=== PATIENT | male | born 1940 | race Caucasian/White ===

== ENCOUNTER 2022-04-13 13:03 | Inpatient (IN) | payer MEDICARE ==
[~2022-04-13] VITALS: Ht 177.8 cm; Wt 73.1 kg
[2022-04-13] MEDS: DOCUSATE SODIUM 100 MG (COLACE) CAP PO SCH ×2 (09:00→22:09)
[2022-04-13] MEDS: polyethylene glycoL POWDER 17 GM (MIRALAX) PACK PO SCH ×2 (09:00→22:09)
[2022-04-13] MEDS: SENNA W/DOCUSATE (SENOKOT S) TABLET PO SCH ×2 (09:00→22:09)
[~2022-04-13 13:03] MED LIST: ACETAMINOPHEN 325 MG TABLET PO PRN; AMIO400T5 PO; APIX5TAB2 PO; ASP81CT PO; ATEN25TA PO; BISACODYL 10 MG SUPP (DULCOLAX) PR PRN; CALCIUM CARBONATE 500 MG (TUMS) TAB.CHEW PO PRN; CYAN10007 PO; DOCUSATE SODIUM 100 MG (COLACE) CAP PO PRN; ENLP5T PO; FLEET ENEMA ADULT 1 EA BTL PR PRN; HYDR1TAB66 PO; LACTULOSE SYRUP 10GM/15ML (ENULOSE) 30ML UDC PO PRN; LOPERAMIDE 2 MG (IMODIUM) TABLET PO PRN; MELO-195 PO; OMEG-9 PO; ONDANSETRON 4 MG (ZOFRAN) ORAL DISSOLVE TAB PO PRN; ROSU10TA12 PO; TICA90TA PO; WRF5T PO; diphenhydrAMINE 25 MG TAB (BENADRYL) PO PRN; guaiFENesin/CODEINE (ROBITUSSIN AC) 10ML UDC PO PRN
[2022-04-13 13:15] VITALS: BP 122/69
--- NOTE | 2022-04-13 14:26 | Physical Therapy Evaluation ---
PT Evaluation-General Medical Diagnosis Admission Date Apr 13, 2022 at 13:03 Medical Diagnosis: CVA Onset Date: Apr 08, 2022 Therapy Diagnosis Therapy Diagnosis: Gait deficit, strength deficit Height/Weight Weight (Pounds): 183 Weight (Ounces): 0.0 Precautions Precautions/Isolations: Fall Prevention, Standard Precautions, Pressure Ulcer Weight Bear Status Right Lower Extremity: Right Full Weight Bearing Left Lower Extremity: Left Full Weight Bearing Referral Physician: Dr. Dunlap Reason for Referral: Evaluation/Treatment Medical History Reviewed History: Yes Social History Home: Single Level Current Living Status: Caregiver Entry Into Home: Level Entry PT Steps Into Home: 0 PT Steps Inside Home: 0 Prior Prior Level of Function SCALE: Activities may be completed with or without assistive devices. 6-Dmfsewmbqd-exqhhab completes the activity by him/herself with no assistance from a helper. 5-Set-up or Clean-up Assistance-helper sets up or cleans up; patient completes activity. [place] assists only prior to or following the activity. 4-Supervision or Touching Assistance-helper provides verbal cues and/or touching/steadying and/or contact guard assistance as patient completes activity. Assistance may be provided throughout the activity or intermittently. 3-Partial/Moderate Assistance-helper does LESS THAN HALF the effort. [place] lifts, holds or supports trunk or limbs, but provides less than half the effort. 2-Substantial/Maximal Assistance-helper does MORE THAN HALF the effort. [place] lifts or holds trunk or limbs and provides more than half the effort. 7-Rbcldksjc-dkldzd does ALL the effort. Patient does none of the effort to complete the activity. Or, the assistance of 2 or more helpers is required for the patient to complete the activity. If activity was not attempted, code reason: 7-Patient Refused. 9-Not Applicable-not attempted and the patient did not perform the activity before the current illness, exacerbation or injury. 10-Not Attempted due to Environmental Limitations-(lack of equipment, weather restraints, etc.). 88-Not Attempted due to Medical Conditions or Safety Concerns. Bed Mobility: 6 Transfers (B,C,W/C): 6 Gait: 6 Stairs: 6 Indoor Mobility (Ambulation): Independent Prior Devices Use: None PT Evaluation-Current Subjective Patient presents to the ARU being pushed in transport chair by caregiver. Patient reports 0/10 pain currently and is agreeable to treatment. Objective Patient Orientation: Person Patient reports "I know where we are, I just can't tell you." With clues and prompting he was able to tell us that he is currently in [place]. He said the date was SundayApril 11, (date being 04-13-22) ROM/Strength ROM Lower Extremities WFLs bilaterally all planes Strength Lower Extremities Hip flexion, adduction and abduction 3+/5 bilaterally; knee flexion and extension 4+/5 Sensory Vision: Functional Hearing: Functional Sensation Right Lower Extremit: Intact Sensation Left Lower Extremity: Intact Transfers Roll Left & Right (QC): 4 Sit to Lying (QC): 4 Lying to Sitting/Side of Bed(Q: 4 Sit to Stand (QC): 3 Chair/Eyt-ic-Axbij Xfer(QC): 3 Toilet Transfer (QC): 3 Car Transfer (QC): 3 Gait Does the Patient Walk?: Yes Mode of Locomotion: Walk Anticipated Mode of Locomotion: Walk Walk 10 feet (QC): 4 Walk 50 ft with 2 Turns(QC): 3 Walk 150 ft (QC): 88 Walking 10ft/uneven surface-QC: 4 Distance: 120 Gait Assistive Device: FWW Wheelchair Training Does the Pt Use a Wheelchair?: Yes Distance: 80 Wheel 50 ft with 2 turns (QC): 3 Wheel 150 ft (QC): 8 Type of Wheelchair: Manual Stairs #of Steps: 12 1 Step (curb) (QC): 4 4 Steps (QC): 3 12 Steps (QC): 2 Balance Sitting Static: Fair Sitting Dynamic: Fair Standing Static: Fair Standing Dynamic: Poor Picking up an Object (QC): 4 Assessment/Needs Patient demonstrates SBA for all bed mobility and min A for transfers. Patient ambulates 120 feet with FWW, with CGA and verbal cues for posture, safety, progression, balance and distance to FWW. Patient performs with min A as he attempt to stand perpendicular to the car and then step in first with his left LE. He required min A to avoid falling and verbal/ tactile cues for proper performance. Patient ascended/descended 4 steps x 3 reps for a total of 12. During the descending of the last 4 steps, patient stopped on the steps and appeared to lose focus of what he was doing. He required max A to finish the last 2-3 steps and then was given a long rest period. Patient performed w/c activities including education on proper use with UEs and LEs, visual field training activity to promote focusing on objects and using UEs to reach for them while navigating the w/c. Patient performed standing dynamic activities with weight shifting. During this activity patient became quiet and was assisted to the w/c. He responded to questions, but for a few seconds only said, "I'm really tired." BP was 122/69, HR 65 bpm and O2 was 96%. Patient given rest break and allowed time to recover. 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 Patient treatment performed as co-treatment with OT during the first 55 minute, excluding evaluation, to focus on functional ADLs, dressing, vision with OT with simultaneous standing dyamic and static balance, gait, transfers and w/c mobility. Rehab Potential: Fair Post Rehab Potential-Barriers: Vision, balance, endurance Equipment Needs Patient has FWW, may need w/c depending on level of improvement. PT Field Crop Technical Officer Goals Field Crop Technical Officer Goals PT Fdc Goals Time Frame: May 12, 2022 Roll Left & Right (QC): 6 Sit to Lying (QC): 6 Lying-Sitting on Side/Bed(QC): 6 Sit to Stand (QC): 6 Chair/Xkb-ss-Yaeeq Xfer(QC): 6 Toilet Transfer (QC): 6 Car Transfer (QC): 6 Does the Patient Walk: Yes Walk 10 feet (QC): 6 Walk 50ft with 2 Turns (QC): 6 Walk 150 ft (QC): 4 Walking 10ft on Uneven Surface: 6 1 Step (curb) (QC): 6 4 Steps (QC): 4 12 Steps (QC): 4 Picking up an Object (QC): 6 Does the Pt use WC or Scooter?: No Wheel 50 feet with 2 turns (QC: 88 Wheel 150 feet: 88 PT Plan Problem List Problem List: Activity Tolerance, Functional Strength, Safety, Balance, Gait, Transfer, Bed Mobility Treatment/Plan Treatment Plan: Continue Plan of Care Treatment Plan: Bed Mobility, Education, Functional Activity Jenifer, Functional Strength, Group Therapy, Gait, Safety, Therapeutic Exercise, Transfers Treatment Duration: May 12, 2022 Frequency: At least 5 of 7 days/Wk (IRF) Estimated Hrs Per Day: 1.5 hours per day Patient and/or Family Agrees t: Yes Safety Risks/Education Patient Education: Gait Training, Transfer Techniques, W/C Management Teaching Recipient: Patient Teaching Methods: Demonstration, Discussion Response to Teaching: Reinforcement Needed Time/GCodes Time In: 1305 Time Out: 1420 Total Billed Treatment Time: 65 Total Billed Treatment Visit, EVM (10), Gait(10), FA(45); PT eval [id number], Co-treat with OT 1325- 1420 GREER BARRERA PT Apr 13, 2022 14:26
--- NOTE | 2022-04-13 14:44 | Physical Therapy Daily Note ---
PT Daily Note-Current Subjective Pt. agrees to Rx but c/o being very fatigued "pooped" and is ready to get in bed and take a nap. Pt. [place] and says he has no steps. Pain Location: No Pain Reported Mental Status Patient Orientation: Person pt. did not know the name of this facility but did know the day of the week Transfers SCALE: Activities may be completed with or without assistive devices. 1-Uwkiinrnde-dtovjly completes the activity by him/herself with no assistance from a helper. 5-Set-up or Clean-up Assistance-helper sets up or cleans up; patient completes activity. [place] assists only prior to or following the activity. 4-Supervision or Touching Assistance-helper provides verbal cues and/or touching/steadying and/or contact guard assistance as patient completes activity. Assistance may be provided throughout the activity or intermittently. 3-Partial/Moderate Assistance-helper does LESS THAN HALF the effort. [place] lifts, holds or supports trunk or limbs, but provides less than half the effort. 2-Substantial/Maximal Assistance-helper does MORE THAN HALF the effort. [place] lifts or holds trunk or limbs and provides more than half the effort. 3-Joqxdxspk-pooaov does ALL the effort. Patient does none of the effort to complete the activity. Or, the assistance of 2 or more helpers is required for the patient to complete the activity. If activity was not attempted, code reason: 7-Patient Refused. 9-Not Applicable-not attempted and the patient did not perform the activity before the current illness, exacerbation or injury. 10-Not Attempted due to Environmental Limitations-(lack of equipment, weather restraints, etc.). 88-Not Attempted due to Medical Conditions or Safety Concerns. Roll Left & Right (QC): 6 Sit to Lying (QC): 4 Sit to Stand (QC): 3 Chair/Qid-mq-Aspsv Xfer(QC): 3 Weight Bearing Right Lower Extremity: Right Full Weight Bearing Left Lower Extremity: Left Full Weight Bearing Gait Training Gait Assistive Device: FWW pt. ambulated a ew feet from w/c to bed with min to mod assist, teetering and needed guidance to the bed etc. Treatments PT OT co Rx for TRFs, bed mob and orientation to ARU practices ad expectations as well as how to use call bryan , bed controls and how scheduling is practiced Assessment Current Status: Good Progress very fatigued, very limited participation , needed rest breaks PT Senior Care Goals Senior Care Goals PT Senior Care Goals Time Frame: May 12, 2022 Roll Left & Right (QC): 6 Sit to Lying (QC): 6 Lying-Sitting on Side/Bed(QC): 6 Sit to Stand (QC): 6 Chair/Sqc-ox-Ckjoj Xfer(QC): 6 Toilet Transfer (QC): 6 Car Transfer (QC): 6 Does the Patient Walk: Yes Walk 10 feet (QC): 6 Walk 50ft with 2 Turns (QC): 6 Walk 150 ft (QC): 4 Walking 10ft on Uneven Surface: 6 1 Step (curb) (QC): 6 4 Steps (QC): 4 12 Steps (QC): 4 Picking up an Object (QC): 6 Does the Pt use WC or Scooter?: No Wheel 50 feet with 2 turns (QC: 88 Wheel 150 feet: 88 PT Plan Treatment/Plan Treatment Plan: Continue Plan of Care Treatment Plan: Bed Mobility, Education, Functional Activity Jenifer, Functional Strength, Group Therapy, Gait, Safety, Therapeutic Exercise, Transfers Treatment Duration: May 12, 2022 Frequency: At least 5 of 7 days/Wk (IRF) Estimated Hrs Per Day: 1.5 hours per day Patient and/or Family Agrees t: Yes Safety Risks/Education Patient Education: Gait Training, Transfer Techniques, Correct Positioning, Safety Issues Teaching Recipient: Patient Response to Teaching: Reinforcement Needed Time/GCodes Time In: 1415 Time Out: 1450 Total Billed Treatment Time: 35 Total Billed Treatment 1,FA35m (PT OT co Rx 35m) CHENCHO MCMAHON BOOKMOBILE CLERK Apr 13, 2022 14:44
--- NOTE | 2022-04-13 14:46 | Occupational Therapy Eval ---
OT Evaluation-General/PLF Medical Diagnosis Admission Date Apr 13, 2022 at 13:03 Medical Diagnosis: CVA Onset Date: Apr 08, 2022 Therapy Diagnosis Therapy Diagnosis: Reduced ADL status, visual deficits Height/Weight Weight (Pounds): 183 Weight (Ounces): 0.0 Precautions Precautions/Isolations: Fall Prevention, Standard Precautions, Pressure Ulcer Comments Thickened liquids Referral Physician: Dr. Dunlap Referral Reason: Evaluation/Treatment Medical History Pertinent Medical History: Atrial Fib, CVA, Heart Failure, HTN Current History Pt presented to hospital with complaints of left sided weakness and facial droop. Found to have R sided CVA. Per family and pt he lives in a single story home with his caregiver. Prior to admission, pt was independent with ADLs with caregiver managing all IADLs. 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 He was not using any assistive device at baseline. Reviewed History: Yes Social History Home: Single Level Current Living Status: Caregiver Entry Into Home: Level Entry Steps Into Home: 0 Steps Inside Home: 0 ADL-Prior Level of Function SCALE: Activities may be completed with or without assistive devices. 8-Lsxkzeicmk-qrbpzvs completes the activity by him/herself with no assistance from a helper. 5-Set-up or Clean-up Assistance-helper sets up or cleans up; patient completes activity. [place] assists only prior to or following the activity. 4-Supervision or Touching Assistance-helper provides verbal cues and/or touching/steadying and/or contact guard assistance as patient completes activ ity. Assistance may be provided throughout the activity or intermittently. 3-Partial/Moderate Assistance-helper does LESS THAN HALF the effort. [place] lifts, holds or supports trunk or limbs, but provides less than half the effort. 2-Substantial/Maximal Assistance-helper does MORE THAN HALF the effort. [place] lifts or holds trunk or limbs and provides more than half the effort. 8-Biuupklvn-fxjqhp does ALL the effort. Patient does none of the effort to complete the activity. Or, the assistance of 2 or more helpers is required for the patient to complete the activity. If activity was not attempted, code reason: 7-Patient Refused. 9-Not Applicable-not attempted and the patient did not perform the activity before the current illness, exacerbation or injury. 10-Not Attempted due to Environmental Limitations-(lack of equipment, weather restraints, etc.). 88-Not Attempted due to Medical Conditions or Safety Concerns. 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 His caregiver and son was in the room as well. He denies all pain, but expresses fatigue and visual deficits. Co-treat with PT ([id number]) secondary to impaired mobility, weakness, visual deficits, high-fall risk, coordination and safety. Appearance Pt was left lying in bed with son and caregiver present. All needs were within reach and call light was explained and practiced before departure. Mental Status/Objective Patient Orientation: Person Current Glasses/Contacts: Yes Hearing Aids: No Dentures/Partials: Yes Hand Dominance: Right Upper Extremity ROM WFL Upper Extremity Coordination Poor dysdiadochokinesia, left coordination slightly worse than right Upper Extremity Sensation Intact Upper Extremity Strength Bilateral shoulders: 3+/5 Bilateral elbows: 4/5 Manager Of Loss Prevention Operations strength: fair ADL-Treatment Eating (QC): 4 (per clinical judgement) Oral Hygiene (QC): 3 (per clinical judgment) Shower/Bathe Self (QC): 88 Upper Body Dressing (QC): 7 Lower Body Dressing (QC): 3 (per clinical judgement) On/Off Footwear (QC): 3 Toileting Hygiene (QC): 7 Pt already dressed and reports he already showered for the day. While seated extra effort noted when attempted to don/doff socks. Pt often closing R eye and reports difficulty seeing. Visual scanning intact. It appears as if double vision. Eye patch provided with report of relief post application. Caregiver reports later in treatment that he wore an eye patch after experience with double vision following first CVA. Cues on figure 4 method for improved ease of reaching feet. Min assist to don shoes. Other Treatments Several activities performed with focus on improving scanning, endurance, coordination, balance, strength, attention, problem solving, and functional reaching. Due to fatigue, some activities were modified to w/c level. Mod cues for scanning to both right and left side. Pt only able to tolerate standing for ~3-4 minutes before needing to sit. Increased trembling noted with prolonged standing. Poor safety as fatigue worsened. Impaired coordination noted when reaching for items as pt often under/over shot. Min-mod assist needed for balance with all standing tasks.Very poor activity tolerance at this time. Education OT Patient Education: Correct positioning, Energy conservation, Instructions to caregiver, Modified ADL techniques, Progress toward Goal/Update tx plan, Purpose of tx/functional activities, Rehab process, Safety issues, Transfer techniques, W/C management Teaching Recipient: Patient, Family Teaching Methods: Demonstration, Discussion Response to Teaching: Verbalize Understanding, Return Demonstration, Reinforcement Needed OT Short Term Goals Short Term Goals Time Frame: Apr 25, 2022 Eatin Oral hygiene: 4 Toileting hygiene: 3 Shower/bathe self: 3 Upper body dressin Lower body dressin Putting on/taking off footwear: 4 OT [place]colo[place] Goals Usp Goals Time Frame: May 04, 2022 Eating (QC): 5 Oral Hygiene (QC): 5 Toileting Hygiene (QC): 6 Shower/Bathe Self (QC): 5 Upper Body Dressing (QC): 6 Lower Body Dressing (QC): 6 On/Off Footwear (QC): 5 Additional Goals: 1-Demonstrate ADL Tasks, 2-Verbalize Understanding, 3- ImproveStrength/Jenifer 1=Demonstrate adherence to instructed precautions during ADL tasks. 2=Patient will verbalize/demonstrate understanding of assistive devices/modifications for ADL. 3=Patient will improve strength/tolerance for activity to enable patient to perform ADL's. OT Education/Plan Problem List/Assessment Assessment: Decreased Activ Tolerance, Decreased Safety Aware, Decreased UE Strength, Impaired Cognition, Impaired Coordination, Impaired Funct Balance, Impaired Self-Care Skills, Visual-Perceptual Deficit Discharge Recommendations Plan/Recommendations: Continue POC Therapy Discharge Recommendati: Post Acute OT (Home Health) Equpiment Recommendations-D/C: Bath Chair Treatment Plan/Plan of Care Treatment,Training & Education: Yes Patient would benefit from OT for education, treatment and training to promote independence in ADL's, mobility, safety and/or upper extremity function for ADL's. Plan of Care: ADL Retraining, Caregiver Training, Cognitive Retraining, Concurrent Therapy, Functional Mobility, Group Exercise/Act as Ind, UE Funct Exercise/Act, UE Neuromus Re-Ed/Coord, Visual/Perceptual Retrain, W/C Management Training Treatment Duration: May 04, 2022 Frequency: At least 5 of 7 days/Wk (IRF) Estimated Hrs Per Day: 1.5 hours per day (75-90 minutes) Agreement: Yes Rehab Potential: Fair Time/GCodes Start Time: 13:15 Stop Time: 14:45 Total Time Billed (hr/min): 90 Billed Treatment Time 1 visit EVM (10 minutes) ADL (15 minutes) FA x4 (65 minutes) OT eval from [id number] Co-treat from [id number] Lissett Worley OT Apr 13, 2022 14:46
--- NOTE | 2022-04-13 15:55 | History & Physical ---
History of Present Illness History of Present Illness Reason for visit/HPI Patient is a 81 y/o M with history of 3 CVAs, HTN, and CAD with stent placement who presents to inpatient rehab floor after having his 3rd stroke 5 days ago. Patient's family reports patient was found slumped over while in the bathroom around 12:30 AM that night. Per family, patient was exhibiting some left arm weakness, left facial droop, and slurred speech at the time. Patient was then ta trey to [facility] by EMS, worked up and received appropriate treatment . Before this stroke occurred, family reports patient was able to walk and move around their house without difficulty and that he was coherent without memory lapses. This is the patient's 3rd stroke since May. Since 5 days ago, patient's family states that he has regained some strength of his left side and his cognition has improved, but still have some concerns about the patient's independence at home. Patient denies any other complaints at this time and does not have any pain. Date of Admission Apr 13, 2022 at 13:03 Date Seen by a Provider: Apr 13, 2022 Time Seen by a Provider: 15:45 I consulted on this patient on 04/13/22 15:45 Attending Physician Deleted Admitting Physician Admitting Physician: Alea Dunlap DO Attending Physician: Alea Dunlap DO Consult Allergies and Home Medications Allergies Coded Allergies: No Known Drug Allergies (Unverified , 06/03/13) Patient Home Medication List Home Medication List Reviewed: Yes Amiodarone Hcl (Amiodarone Hcl) 400 Mg Tablet, 200 MG PO HS, (Reported) Entered as Reported by: ANUJ MILLS on 06/03/13 140 Aspirin (Baby Aspirin Chewable Tablet) 81 Mg Chew, 81 MG PO HS, (Reported) Entered as Reported by: ANUJ MILLS on 06/03/131404 Atenolol (Tenormin 25 Mg) 25 Mg Tablet, 25 MG PO HS, (Reported) Entered as Reported by: ANUJ MILLS on 06/03/131404 Enalapril Maleate (Vasotec Tablet) 5 Mg Tab, 5 MG PO HS, (Reported) Entered as Reported by: ANUJ MILLS on 06/03/131404 Hydrocodone Bit/Acetaminophen (Hydrocodon-Acetaminophen 5-500) 1 Each Tablet, 5- 500 MG PO EVERY 6-8 HOURS PRN, (Reported) Entered as Reported by: MAYCOL ROSARIO on 06/03/13 1525 Meloxicam (Meloxicam) 15 Mg Tablet, 15 MG PO HS, (Reported) Entered as Reported by: ANUJ MILLS on 06/03/13 1405 [place]-3/Dha/Epa/Fish Oil (Fish Oil 1,400 Mg Softgel) 1 Each Capsule.dr, 1,400 MG PO HS, (Reported) Entered as Reported by: ANUJ MILLS on 06/03/13 1405 Rosuvastatin Calcium (Crestor) 10 Mg Tablet, 10 MG PO HS, (Reported) Entered as Reported by: ANUJ MILLS on 06/03/13 1405 Ticagrelor (Brilinta) 90 Mg Tablet, 90 MG PO BID, (Reported) Entered as Reported by: NANETTE GRACIA on 06/05/13 1137 Warfarin Sodium (Coumadin) 5 Mg Tablet, 5 MG PO DAILY, (Reported) Entered as Reported by: NANETTE GRACIA on 06/05/13 1137 Past Hzqqyno-Xtyvgj-Apoume Hx Patient Social History Tobacco Use?: Yes Tobacco type used: Cigarettes Smoking Status: Former Smoker Use of E-Cig and/or Vaping dev: No Substance use?: No Alcohol Use?: Yes Alcohol type: Beer Alcohol Frequency: Daily Pt feels they are or have been: No Current Status Advance Directives: Yes Communicates: Verbally Primary Language: Maltese Is interpretation needed?: No Sensory deficits: Vision impairment, Hearing impairment, Speech impairment Implanted or Applied Medical D: Pacemaker Past Medical History Surgeries: Coronary Stent, Defibrillator, Pacemaker Atrial Fibrillation, Coronary Artery Disease, Heart Attack, Hypertension Sexually Transmitted Disease: No HIV/AIDS: No Hearing Impairment: Hard of Hearing Depression Adverse Reaction/Blood Tranf: No Review of Systems Constitutional: No chills, No fever EENTM: hearing loss (mild); No eye pain Respiratory: No cough, No short of breath Cardiovascular: No chest pain, No palpitations Gastrointestinal: No abdominal pain, No nausea Musculoskeletal: No back pain, No joint pain Skin: No change in color, No change in hair/nails Psychiatric/Neurological: Denies Anxiety Physical Exam Vital Signs Vital Signs - First Documented 9/1/22 13:15 Temp 35.9 Pulse 64 Resp 18 B/P (MAP) 122/69 (86) Pulse Ox 96 O2 Delivery Room Air Capillary Refill : Height, Weight, BMI Height: '" Weight: 183lbs. 0.0oz. [id number]; 25.54 BMI Method: General Appearance: No Apparent Distress, Thin HEENT: Moist Mucous Membranes Neck: Non Tender, Supple Respiratory: Chest Non Tender, Lungs Clear, No Accessory Muscle Use, No Respiratory Distress Cardiovascular: No Edema, No JVD Gastrointestinal: Non Tender, Soft Rectal: Deferred Extremity: No Pedal Edema, Calf Tenderness (mild) Neurologic/Psychiatric: Alert, Normal Mood/Affect Skin: Normal Color, Warm/Dry Lymphatic: No Adenopathy Assessment/Plan Assessment and Plan 1. CVA CT Head was done at [facility] and will be reviewed when received. Start PT, OT. 2. Left Sided Weakness 3. HTN Continue home medications. 4. CAD DVT prophylaxis. 5. Fall risk Closely Monitor for falls. Continue Dys2 diet. Admission Diagnosis Admission Status: Observation AZEB BOWER Apr 13, 2022 15:55
[2022-04-13] MEDS ORDERED: HYDROcodone/APAP 5 MG/325 MG (LORTAB) TAB PO PRN (17:45)
[2022-04-13] MEDS ORDERED: OFLO5DRO3 OP ×2 (19:06→19:25)
[2022-04-13] MEDS ORDERED: WARF3TAB56 PO (19:06)
[2022-04-13] MEDS ORDERED: LISI20TA26 PO (19:06)
[2022-04-13] MEDS ORDERED: DIGO125T18 PO (19:06)
[2022-04-13] MEDS ORDERED: METO-333 PO (19:06)
[2022-04-13] MEDS ORDERED: ATOR80TA76 PO (19:06)
[2022-04-13] MEDS ORDERED: CITA20TA12 PO (19:06)
[2022-04-13] MEDS ORDERED: HYDR-3817 PO ×2 (19:26→19:28)
--- NOTE | 2022-04-13 20:04 | PM&R Post Admission Assessment ---
PM&R HP Date of Visit: Apr 13, 2022 Time of Visit: 14:00 History of Present Illness Chief complaint: CVA recurrent type HPI: This is an 81-year-old male who transferred from [facility] in [place] where he lives with his girlfriend independently who was admitted on 04/09/2022 due to ischemic CVA. This is his third stroke. Prior level of functioning was independent and current level of functioning is requiring help with bed mobility and would benefit from PT OT and speech therapy. He currently is ready to eat lunch because he is hungry and denies any pain. He denies any issues with bowels although he is a bit constipated and having no problems voiding. I have restarted all medications on the list from [facility]. Past Cidlluu-Nqmthz-Ehegqt Hx Past Med/Social Hx: Reviewed Nursing Past Med/Soc Hx, Reviewed and Corrections made Patient Social History Marrital Status: cohabiting Employed/Student: retired Alcohol Use: Occasionally Uses Smoking Status: Former Smoker Past Medical History Surgeries: Coronary Stent, Defibrillator, Pacemaker Cardiac: Atrial Fibrillation, Coronary Artery Disease, Heart Attack, Hypertension Reproductive: No Sexually Transmitted Disease: No HIV/AIDS: No Hearing Impairment: Hard of Hearing Psychosocial: Depression Adverse Reaction to Blood [place]: No Prior Level of Function Bed Mobility: 6 Transfers: 6 Gait: 6 Stairs: 6 Indoor Mobility (Ambulation): Independent Prior Devices Use: None Self Care: Independent Functional Cognition: Unknown Occupation: Retired Current Level of Fuctioning Roll Left to Right: 6 Sit to Lyin Lying to Sitting/Side of Bed: 4 Sit to Stand: 3 Chair/Xkm-jm-Bykst Xfer: 3 Car Transfer: 3 Does the Patient Walk: Yes Mode of Locomotion: Walk Anticipated Mode of Locomotion: Walk Walk 10 feet: 4 Walk 50 ft with 2 Turns: 3 Walk 150 ft: 88 Walking 10ft on uneven surface: 4 Gait Assistive Device: FWW Does the Pt Use a Wheelchair: Yes Wheelchair Distance: 80 Wheel 50 ft with 2 turns: 3 Wheel 150 ft: 8 Type of Wheelchair: Manual #of Steps: 12 1 Step (curb): 4 4 Steps: 3 12 Steps: 2 Picking up an Object: 4 Eatin (per clinical judgement) Oral Hygiene: 3 (per clinical judgment) Shower/Bathe Self: 88 Upper Body Dressin Lower Body Dressin (per clinical judgement) On/Off Footwear: 3 Toileting Hygiene: 7 PM&R Allergy/Meds/Data Review Allergies Coded Allergies: No Known Drug Allergies (Unverified , 06/03/13) Home Medications Scheduled Aspirin (Baby Aspirin Chewable Tablet), 81 MG PO HS, (Reported) Atorvastatin Calcium (Atorvastatin Calcium), 80 MG PO DAILY Citalopram Hydrobromide (Celexa), 20 MG PO DAILY Digoxin (Digox), 125 MCG PO DAILY Lisinopril (Lisinopril), 20 MG PO DAILY Metoprolol Tartrate (Metoprolol Tartrate), 25 MG PO BID Ofloxacin (Ofloxacin), 5 ML OP QID Warfarin Sodium (Warfarin Sodium), 3 MG PO DAILY Scheduled PRN Hydrocodone/Acetaminophen (Hydrocodone-Acetamin 7.5-325), 1 EACH PO Q6H PRN for PAIN-MODERATE (5-7) Discontinued Medications Amiodarone Hcl (Amiodarone Hcl), 200 MG PO HS, (Reported) Discontinued Reason: No Longer Taking Atenolol (Tenormin 25 Mg), 25 MG PO HS, (Reported) Discontinued Reason: No Longer Taking Enalapril Maleate (Vasotec Tablet), 5 MG PO HS, (Reported) Discontinued Reason: No Longer Taking Hydrocodone Bit/Acetaminophen (Hydrocodon-Acetaminophen 5-500), 5-500 MG PO EVERY 6-8 HOURS PRN, (Reported) Discontinued Reason: No Longer Taking Meloxicam (Meloxicam), 15 MG PO HS, (Reported) Discontinued Reason: No Longer Taking [place]-3/Dha/Epa/Fish Oil (Fish Oil 1,400 Mg Softgel), 1,400 MG PO HS, (Reported) Discontinued Reason: No Longer Taking Rosuvastatin Calcium (Crestor), 10 MG PO HS, (Reported) Discontinued Reason: No Longer Taking Ticagrelor (Brilinta), 90 MG PO BID, (Reported) Discontinued Reason: No Longer Taking Warfarin Sodium (Coumadin), 5 MG PO DAILY, (Reported) Discontinued Reason: No Longer Taking Current Medications Current Medications Reviewed Review of Systems Constitutional: see HPI, malaise, weakness EENTM: no symptoms reported Respiratory: no symptoms reported Cardiovascular: no symptoms reported Gastrointestinal: no symptoms reported, constipation Genitourinary: no symptoms reported Musculoskeletal: no symptoms reported Skin: no symptoms reported Psychiatric/Neurological: Weakness All Other Systems Reviewed Negative Unless Noted: Yes Physical Exam Physical Exam Vital Signs Vital Signs - First Documented 04/13/22 13:15 Temp 35.9 Pulse 64 Resp 18 B/P (MAP) 122/69 (86) Pulse Ox 96 O2 Delivery Room Air Capillary Refill : Height, Weight, BMI Height: '" Weight: 183lbs. 0.0oz. [id number]; 25.54 BMI Method: General Appearance: No Apparent Distress, WD/WN, Chronically ill, Thin HEENT: PERRL/EOMI, Normal ENT Inspection, Pharynx Normal, Moist Mucous Membranes Neck: Non Tender, Supple Respiratory: Chest Non Tender, Lungs Clear, Normal Breath Sounds, No Accessory Muscle Use, No Respiratory Distress Cardiovascular: Regular Rate, Rhythm, No Edema, No Gallop, No JVD Gastrointestinal: Normal Bowel Sounds, No Organomegaly, No Pulsatile Mass, Non Tender, Soft Rectal: Deferred Extremity: No Pedal Edema, Calf Tenderness (mild) Neurologic/Psychiatric: Alert, Normal Mood/Affect, Motor Weakness (Generalized all extremities) Skin: Normal Color, Warm/Dry Lymphatic: No Adenopathy PM&R Medical Assessment & Plan REHAB/MEDICAL ASSESSMENT AND PLAN: REHAB IMPAIRMENT GROUP: CVA CVA The comorbidities that impact the patients function and/or functional outcome by: Advanced age, cognitive deficit, pacemaker, atrial fibrillation, Coumadin therapy REHAB PLAN: The patient is being admitted to our comprehensive inpatient rehabilitation facility and can tolerate the intensity of service consisting of at least: 180 minutes of therapy a day, 5 out of 7 days a week Rehab treatment will consist of: PT and OT will focus on regaining stamina with the use of assistive devices and walkers in order to regain enough independent function to return back home with his significant other and speech therapy will work on cognition and thought processes The patient/family has a good understanding of our discharge process and will benefit from an interdisciplinary inpatient rehabilitation program. The patient has potential to make improvement and is in need of at least two of the following multidisciplinary therapies including but not limited to physical, occupational, speech, and prosthetics and orthotics. Additionally the patient will need services from respiratory, nutritional services, wound care, psychology, etc. (Customize this to each patient). Given the patients complex condition and risk of further medical complications, rehabilitation services cannot be safely or effectively provided at a lower level of care such as a nursing home facility. BARRIERS TO DISCHARGE: Advanced age and cognitive deficits ESTIMATED LOS: 10 days DISPOSITION: Home RELEVANT CHANGES SINCE PREADMISSION SCREENING: I have compared the patients medical and functional status at the time of the preadmission screening and there are: No changes PROGNOSIS: Fair REHABILITATION GOALS: 1. PT and OT will focus on regaining stamina with the use of assistive devices and walkers in order to regain enough independent function to return back home with his significant other and speech therapy will work on cognition and thought processes All the above goals were reviewed with the patient and he/she is in agreement. By signing this document, I acknowledge that I have personally performed a full physical examination on this patient within 24 hours of admission to this inpatient rehabilitation facility and have determined the patient to be able to tolerate the above course of treatment at an intensive level for a reasonable period of time. I will be completing a detailed individualized Plan of Care for this patient by day #4 of the patients stay based upon the Preadmission Screen, the Post-Admission Evaluation, and the therapy evaluations. Admission Dx/Comorbidities: (1) CVA (cerebral vascular accident) ICD Codes: I63.9 - Cerebral infarction, unspecified Assessment/Plan Assessment and Plan Assess & Plan/Chief Complaint Assessment: 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 2 prior strokes Atrial fibrillation on Coumadin therapy Hypertension Pacemaker Hyperlipidemia Plan: Supportive care Check INR in the morning Restart all home meds Aggressive PT OT EDDIE BARKER DO Apr 13, 2022 20:04
[2022-04-13 20:14] VITALS: BP 168/79
[2022-04-13] MEDS ORDERED: EPA PO SCH (21:00)
[2022-04-13] MEDS ORDERED: DHA PO SCH (21:00)
[2022-04-13] MEDS ORDERED: ATENOLOL 25 MG (TENORMIN) TAB PO SCH (21:00)
[2022-04-13] MEDS ORDERED: [UNRECOGNIZED DRUG - OTHER] PO SCH (21:00)
[2022-04-13] MEDS ORDERED: OMEGA 3 (FISH OIL) 1000 MG CAP PO SCH (21:00)
[2022-04-13] MEDS ORDERED: MELOXICAM 7.5 MG (MOBIC) TABLET PO SCH (21:00)
[2022-04-13] MEDS ORDERED: FISH OIL PO SCH (21:00)
[2022-04-13] MEDS ORDERED: ENALAPRIL 5 MG (VASOTEC) TAB PO SCH (21:00)
[2022-04-13] MEDS ORDERED: ROSUVASTATIN 10 MG (CRESTOR) TABLET PO SCH (21:00)
[2022-04-13] MEDS ORDERED: OMEGA PO SCH (21:00)
[2022-04-13] MEDS ORDERED: AMIODARONE HCL 200 MG PO SCH (21:00)
[2022-04-13] MEDS ORDERED: TICAGRELOR 90 MG TABLET (BRILINTA) PO SCH (21:00)
[2022-04-13] MEDS ORDERED: AMIODARONE 200 MG (CORDARONE) TAB PO SCH (21:00)
[2022-04-13] MEDS: OFLOXACIN 0.3% OPHTH SOLN 5 ML OP SCH (22:10)
[2022-04-13] MEDS ORDERED: warFARin 3 MG (COUMADIN) TAB PO SCH (22:15)
[2022-04-13] MEDS: ASPIRIN 81 MG CHEW (CHILDREN'S ASA) PO SCH (22:21)
[2022-04-13] MEDS: meTOprolol TARTRATE 25 MG (LOPRESSOR) TABLET PO SCH (22:21)
[2022-04-14 06:39] LABS: BASOPHILS # (AUTO) 0.1 10^3/uL (0.0-0.1); BASOPHILS % (AUTO) 1 % (0-10); EOSINOPHILS # (AUTO) 0.6 10^3/uL (0.0-0.3); EOSINOPHILS % (AUTO) 9 % (0-10); HEMATOCRIT 40 % (40-54); HEMOGLOBIN 13.5 g/dL (13.3-17.7); LYMPHOCYTES # (AUTO) 1.7 10^3/uL (1.0-4.0); LYMPHOCYTES % (AUTO) 26 % (12-44); MEAN CORPUSCULAR HEMOGLOBIN 32 pg (25-34); MEAN CORPUSCULAR HGB CONC 34 g/dL (32-36); MEAN CORPUSCULAR VOLUME 93 fL (80-99); MEAN PLATELET VOLUME 10.6 fL (9.0-12.2); MONOCYTES # (AUTO) 0.6 10^3/uL (0.0-1.0); MONOCYTES % (AUTO) 9 % (0-12); NEUTROPHILS # (AUTO) 3.6 10^3/uL (1.8-7.8); NEUTROPHILS % (AUTO) 55 % (42-75); PLATELET COUNT 204 10^3/uL (130-400); WHITE BLOOD COUNT 6.6 10^3/uL (4.3-11.0)
[2022-04-14 06:50] LABS: ALBUMIN 3.4 GM/DL (3.2-4.5); POTASSIUM 3.9 MMOL/L (3.6-5.0)
[2022-04-14 06:53] LABS: TOTAL PROTEIN 6.2 GM/DL (6.4-8.2)
[2022-04-14 06:54] LABS: BILIRUBIN,TOTAL 1.3 MG/DL (0.1-1.0)
[2022-04-14 06:56] LABS: CREATININE SERUM 0.98 MG/DL (0.60-1.30)
[2022-04-14 07:03] LABS: INR 1.8 (0.8-1.4); PROTHROMBIN TIME PATIENT 20.9 SEC (12.2-14.7)
[2022-04-14 07:31] VITALS: BP 158/90
[2022-04-14] MEDS: DIGOXIN 0.125 MG (LANOXIN) TAB PO SCH (07:54)
[2022-04-14] MEDS: meTOprolol TARTRATE 25 MG (LOPRESSOR) TABLET PO SCH (07:54)
[2022-04-14] MEDS: OFLOXACIN 0.3% OPHTH SOLN 5 ML OP SCH ×4 (08:01→20:35)
[2022-04-14] MEDS ORDERED: lisINopril 20 MG (PRINIVIL) TABLET PO SCH (09:00)
[2022-04-14] MEDS ORDERED: warFARin 3 MG (COUMADIN) TAB PO SCH ×2 (09:00→18:00)
[2022-04-14] MEDS ORDERED: warFARin 5 MG (COUMADIN) TAB PO SCH ×2 (09:00)
[2022-04-14] MEDS: polyethylene glycoL POWDER 17 GM (MIRALAX) PACK PO SCH ×2 (09:57→21:18)
[2022-04-14] MEDS: SENNA W/DOCUSATE (SENOKOT S) TABLET PO SCH ×2 (09:57→21:18)
[2022-04-14] MEDS: DOCUSATE SODIUM 100 MG (COLACE) CAP PO SCH ×2 (09:58→21:18)
--- NOTE | 2022-04-14 10:29 | PM&R Progress Note ---
Subjective HPI/CC On Admission Date Seen by Provider: Apr 14, 2022 Time Seen by Provider: 10:30 Subjective/Events-last exam 04/14/2022: Pt is doing pretty well He is a bit confused Bed alarm on for fall risk Checked meds and labs No falls Review of Systems General: Fatigue, Malaise Neurological: Confusion Objective Exam Vital Signs Vital Signs Date Time Temp Pulse Resp B/P (MAP) Pulse Ox O2 Delivery O2 Flow Rate FiO2 04/14/22 20:30 Room Air 04/14/22 19:55 36.5 71 20 152/80 (104) 95 Capillary Refill : General Appearance: No Apparent Distress, WD/WN, Chronically ill, Thin HEENT: PERRL/EOMI, Normal ENT Inspection, Pharynx Normal, Moist Mucous Membranes Neck: Non Tender, Supple Respiratory: Chest Non Tender, Lungs Clear, Normal Breath Sounds, No Accessory Muscle Use, No Respiratory Distress Cardiovascular: Regular Rate, Rhythm, No Edema, No Gallop, No JVD Gastrointestinal: Normal Bowel Sounds, No Organomegaly, No Pulsatile Mass, Non Tender, Soft Rectal: Deferred Extremity: No Pedal Edema, Calf Tenderness (mild) Neurologic/Psychiatric: Alert, Normal Mood/Affect, Motor Weakness (Generalized all extremities) Skin: Normal Color, Warm/Dry Lymphatic: No Adenopathy Results/Procedures Lab Patient resulted labs reviewed. FIM Transfers Therapy Code Descriptions/Definitions Functional [place] Measure: 0=Not Assessed/NA 4=Minimal Assistance 1=Total Assistance 5=Supervision or Setup 2=Maximal Assistance 6=Modified [place] 3=Moderate Assistance 7=Complete IndependenceSCALE: Activities may be completed with or without assistive devices. 4-Bptuxcuzkp-kykbsma completes the activity by him/herself with no assistance from a helper. 5-Set-up or Clean-up Assistance-helper sets up or cleans up; patient completes activity. [place] assists only prior to or following the activity. 4-Supervision or Touching Assistance-helper provides verbal cues and/or touching/steadying and/or contact guard assistance as patient completes ac tivity. Assistance may be provided throughout the activity or intermittently. 3-Partial/Moderate Assistance-helper does LESS THAN HALF the effort. [place] lifts, holds or supports trunk or limbs, but provides less than half the effort. 2-Substantial/Maximal Assistance-helper does MORE THAN HALF the effort. [place] lifts or holds trunk or limbs and provides more than half the effort. 5-Hruaxrram-zsbfle does ALL the effort. Patient does none of the effort to complete the activity. Or, the assistance of 2 or more helpers is required for the patient to complete the activity. If activity was not attempted, code reason: 7-Patient Refused. 9-Not Applicable-not attempted and the patient did not perform the activity before the current illness, exacerbation or injury. 10-Not Attempted due to Environmental Limitations-(lack of equipment, weather restraints, etc.). 88-Not Attempted due to Medical Conditions or Safety Concerns. Roll Left to Right (QC): 6 Sit to Lying (QC): 4 Sit to Stand (QC): 3 Chair/Skq-zy-Fwtbs Xfer(QC): 3 Car Transfer (QC): 3 Gait Training Does the Patient Walk?: Yes Walk 10 feet (QC): 4 Walk 50 ft with 2 Turns(QC): 3 Walk 150 ft (QC): 88 Walking 10ft/uneven surface-QC: 4 Gait Assistive Device: FWW Wheelchair Training Does the Pt Use a Wheelchair?: Yes Distance: 80 Wheel 50 ft with 2 turns (QC): 3 Wheel 150 ft (QC): 8 Type of Wheelchair: Manual Stair Training #of Steps: 12 1 Step (curb) (QC): 4 4 Steps (QC): 3 12 Steps (QC): 2 Balance Picking up an Object (QC): 4 ADL-Treatment Eating (QC): 4 (per clinical judgement) Oral Hygiene (QC): 3 (per clinical judgment) Shower/Bathe Self (QC): 88 Upper Body Dressing (QC): 7 Lower Body Dressing (QC): 3 (per clinical judgement) On/Off Footwear (QC): 3 Toileting Hygiene (QC): 7 Assessment/Plan Assessment and Plan Assess & Plan/Chief Complaint Assessment: 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 2 prior strokes Atrial fibrillation on Coumadin therapy Hypertension Pacemaker Hyperlipidemia Plan: Supportive care Check INR in the morning Restart all home meds Aggressive PT OT ST 04/14/2022: Monitor confusion Bed alarm since fall risk (1) CVA (cerebral vascular accident) EDDIE YEE DO Apr 14, 2022 10:29
--- NOTE | 2022-04-14 10:29 | Individualized Plan of Care ---
Individualized Plan of Care Rehab Nursing IPOC Order Admission Date Apr 13, 2022 at 13:03 Current Orders Orders Admission Order(Inpt,Obs,Sdc) (04/13/22 06:17) Vital Signs: Per Unit Policy ( 08,16,00 (04/13/22 06:17) Sammy Long (04/13/22 06:17) Sequential Compression Device (04/13/22 06:17) Rn Liaison-Inpt Rehab Con (04/13/22 06:17) Rehab Nursing Orders-Ipoc (04/13/22 06:17) Physical Therapy Rehab Orders (04/13/22 06:17) Occupational Therapy Rehab Ord (04/13/22 06:17) Speech Therapy Rehab Orders (04/13/22 06:17) Cbc With Automated Diff (04/14/22 06:00) Comprehensive Metabolic Panel (04/14/22 06:00) Precautions (Aru) (04/13/22 06:17) Weekly Weight WEEK (04/13/22 06:17) Rehab-Intensity Of Therapy (04/13/22 06:17) Initiate Admission Nursing Pro .admission (04/13/22 06:17) Alprazolam Tablet (Xanax Tablet) (04/13/22 06:30) Calcium Carbonate Chew Tablet (Antacid C (04/13/22 06:30) Diphenhydramine Tablet (Benadryl Tablet) (04/13/22 06:30) Docusate Sodium Capsule (Colace Capsule) (04/13/22 09:00) Docusate Sodium Capsule (Colace Capsule) (04/13/22 06:30) Bisacodyl Suppository (Dulcolax Supposit (04/13/22 06:30) Lactulose Oral Solution (Enulose Oral So (04/13/22 06:30) Na Phos/Na Biphos Enema (Fleet Enema Colin (04/13/22 06:30) Guaifenesin/Codeine Syrup (Robitussin Ac (04/13/22 06:30) Loperamide Tablet (Imodium Tablet) (04/13/22 06:30) Melatonin Tablet (Melatonin Tablet) (04/13/22 06:30) Polyethylene Glycol Powder Pkt (Miralax (04/13/22 09:00) Ondansetron Oral Dissolve Tab (Zofran (04/13/22 06:30) Senna S Tablet (Senokot S Tablet) (04/13/22 09:00) Acetaminophen Tablet/Caplet (Tylenol T (04/13/22 06:30) Code/Resuscitation (04/13/22 06:17) Initiate Admission Nursing Pro .admission (04/13/22 06:17) Admission Arrival Bed Request (04/13/22 13:03) Patient Visit (04/13/22 ) Pt Eval Moderate Complexity (04/13/22 ) Gait Training, Ea 15 Min (04/13/22 ) Functional Activities, Ea 15 (04/13/22 ) Dys2 Mechanically Altered (04/13/22 Lunch) Patient Visit (04/13/22 ) Functional Activities, Ea 15 (04/13/22 ) Aspirin Chewable Tablet (Baby Aspirin Ch (04/13/22 21:00) Atenolol Tablet (Tenormin Tablet) (04/13/22 21:00) Enalapril Tablet (Vasotec Tablet) (04/13/22 21:00) Hydrocodone/Apap 5/325 Tablet (Lortab 5 (04/13/22 17:45) Meloxicam Tablet (Mobic Tablet) (04/13/22 21:00) Rosuvastatin Tablet (Crestor Tablet) (04/13/22 21:00) Ticagrelor Tablet (Brilinta Tablet) (04/13/22 21:00) Warfarin Tablet (Coumadin Tablet) (04/14/22 09:00) (Nf) Amiodarone Hcl (04/13/22 21:00) (Nf) [place]-3/Dha/Epa/Fish Oil (Fish Oil (04/13/22 21:00) Protime With Inr (04/14/22 06:00) Amiodarone Tablet (Cordarone Tablet) (04/13/22 21:00) [place] 3 Capsule (Fish Oil Capsule) (04/13/22 21:00) Warfarin Tablet (Coumadin Tablet) (04/14/22 09:00) Atorvastatin Tablet (Lipitor Tablet) (04/14/22 09:00) Citalopram Tablet (Celexa Tablet) (04/14/22 09:00) Digoxin Tablet (Lanoxin Tablet) (04/14/22 09:00) Hydrocodone/Apap 7.5/325 Tab (Lortab 7. (04/13/22 20:15) Lisinopril Tablet (Zestril Tablet) (04/14/22 09:00) Metoprolol Tartrate (Ir) Tab (Lopressor (04/13/22 21:00) Ofloxacin 0.3% Ophth Soln (Ocuflox 0.3% (04/13/22 21:00) Warfarin Tablet (Coumadin Tablet) (04/14/22 09:00) Atorvastatin Tablet (Lipitor Tablet) (04/13/22 21:00) Warfarin Tablet (Coumadin Tablet) (04/13/22 22:15) Consult Cardiology (04/14/22 10:44) Warfarin Tablet (Coumadin Tablet) (04/14/22 18:00) Warfarin Tablet (Coumadin Tablet) (04/14/22 18:00) Warfarin Tablet (Coumadin Tablet) (04/14/22 18:00) Sammy Long (04/14/22 11:39) Patient Visit (04/14/22 ) Dysphagia Evaluation Std (04/14/22 ) Dysphagia Therapy (04/14/22 ) Digoxin (04/15/22 05:00) Basic Metabolic Panel (04/15/22 05:00) Ekg Tracing (04/14/22 11:51) Obtain Records From (Order) (04/14/22 12:13) Patient Visit (04/14/22 ) Functional Activities, Ea 15 (04/14/22 ) Exercise Therap, Ea 15 Min (04/14/22 ) Dys3 Advanced (04/14/22 Dinner) Rehab Nursing Orders: Ongoing Assess. of Cognitive Status, Ongoing Assess. of Function Status, Bladder Management, Bladder Scan, Bladder Training, Bowel Management, Bowel Training, Disease Management & Educaiton, DVT Prophylaxis, Fall Prevention, Fluid/Electrolyte/Nutrition Mgmt, Infection Prevention, Medica tion Management & Education, Management of Risks & Complications, Management of Skin Intergrity, Nutrition Management, Pain Management, Patient/Family Support, Safety Management Intensity of Therapy to be met Patient to be seen: Min.3h per day/5 of 7d PT IPOC Problem List: Activity Tolerance, Functional Strength, Safety, Balance, Gait, Transfer, Bed Mobility Treatment Plan: Continue Plan of Care Bed Mobility, Education, Functional Activity Jenifer, Functional Strength, Group Therapy, Gait, Safety, Therapeutic Exercise, Transfers Treatment Duration: May 12, 2022 Frequency: At least 5 of 7 days/Wk (IRF) Estimated Hrs Per Day: 1.5 hours per day OT IPOC Problems: Decreased Activ Tolerance, Decreased Safety Aware, Decreased UE Strength, Impaired Cognition, Impaired Coordination, Impaired Funct Balance, Impaired Self-Care Skills, Visual-Perceptual Deficit OT Treatment, Training and Edu: Yes Plan of Care: ADL Retraining, Caregiver Training, Cognitive Retraining, Concurrent Therapy, Functional Mobility, Group Exercise/Act as Ind, UE Funct E xercise/Act, UE Neuromus Re-Ed/Coord, Visual/Perceptual Retrain, W/C Management Training Treatment Duration: May 04, 2022 Frequency: At least 5 of 7 days/Wk (IRF) Estimated Hrs Per Day: 1.5 hours per day (75-90 minutes) ST IPOC Speech Therapy Treatment Plan: Continue Plan of Care Treatment Duration: Apr 14, 2022 Frequency: Modified Program (IRF) Estimated Hrs Per Day: Other Rn Liaison/Case Mgmt Rn Liaison/Case Managemen: Discharge Planning Dietitian/Hat Band Attacher Dietitian/Hat Band Attacher to monitor nutritional status and make changes and/or recommendations as needed and work with speech pathology on dietary upgrades as the occur. Physician IPOC Medical Issues being managed closely and that require the 24 hour availability of a physician: Recent CVA we will be at high risk for recurrent CVA so will need cardiology evaluation and close monitoring of blood pressure in order to prevent any decompensation Medical Issues: Bowel/Bladder Function, DVT Prophylaxis, Falls Precautions, Fluid/Electrolyte/Nutrition Balance, Infection Protection, Pain Management Brief Synthesis of Preadmission Screen, Post-Admission Evaluation, and Therapy Evaluations: PT and OT will focus on regaining function with use of assistive devices in order to prevent falls and ST will work on cognition and thought processes Medical Prognosis: Fair Anticipated Length of Stay: 10 days EDDIE YEE DO Apr 14, 2022 10:29
--- NOTE | 2022-04-14 11:49 | Consultation-Cardiology ---
HPI-Cardiology Cardiology Consultation: Date of Consultation 04/14/22 Date of Admission 04-13-22 Attending Physician Deleted Admitting Physician Admitting Physician: Alea Dunlap DO Attending Physician: Alea Dunlap DO Consulting Physician RL HANNA HPI: Chief Complaint: Orthostatic hypotension Mr. Hsieh is an 81 yr old male who has been admitted to IRU 232 from [facility] [place], [place] following treatment for CVA. He is oriented to self and able to tell me he is from [place], otherwise he is disoriented to place and time. He is cooperative, but unable to provide any information. Information is obtained per nursing, PT and chart review. Yesterday staff got him up and out of bed at which time he reported dizziness and weakness. It is reported his BP was low, but no BP was documented for that incident. This morning while lying in bed his BP was 140 systolic therefore he received Lisinopril and Lopressor. PT was getting him out of bed mid-morning when he felt weak and dizzy. His BP was noted to be 74/53. He was laid back down and after several minutes his BP was rechecked and noted to be 120 systolic. No c/o CP. No syncope or near syncope. No LE swelling. No report of nausea. Review of Systems-Cardiology Review of Systems Other comments ROS to the extent it could be obtained is as per HPI All Other Systems Reviewed Negative Unless Noted: Yes [id number] Hx Patient Social History Marrital Status: cohabiting Employed/Student: retired Smoking Status: Former Smoker Have you traveled recently?: No Alcohol Use?: Yes Pt feels they are or have been: No Tobacco type used: Cigarettes Past Medical History PMH As described under Assessment. Family Medical History Family Medical History: Unable to obtain d/t confusion Allergies and Home Medications Allergies Coded Allergies: No Known Drug Allergies (Unverified , 06/03/13) Patient Home Medication List Aspirin (Baby Aspirin Chewable Tablet) 81 Mg Chew, 81 MG PO HS, (Reported) Entered as Reported by: ANUJ MILLS on 06/03/13 1405 Last Action: Reviewed Atorvastatin Calcium (Atorvastatin Calcium) 80 Mg Tablet, 80 MG PO DAILY Prescribed by: MARCIE BRITO on 04/13/22 1906 Last Action: Continued Citalopram Hydrobromide (Celexa) 20 Mg Tablet, 20 MG PO DAILY Prescribed by: MARCIE BRITO on 04/13/221905 Last Action: Continued Digoxin (Digox) 125 Mcg (0.125 Mg) Tablet, 125 MCG PO DAILY Prescribed by: MARCIE BRITO on 04/13/221905 Last Action: Continued Hydrocodone/Acetaminophen (Hydrocodone-Acetamin 7.5-325) 7.5 Mg-325 Mg Tablet, 1 EACH PO Q6H PRN for PAIN-MODERATE (5-7) Prescribed by: MARCIE BRITO on 04/13/221927 Last Action: Continued Lisinopril (Lisinopril) 20 Mg Tablet, 20 MG PO DAILY Prescribed by: MARCIE BRITO on 04/13/221905 Last Action: Continued Metoprolol Tartrate (Metoprolol Tartrate) 25 Mg Tablet, 25 MG PO BID Prescribed by: MARCIE BRITO on 04/13/221905 Last Action: Continued Ofloxacin (Ofloxacin) 0.3 % Drops, 5 ML OP QID Prescribed by: MARCIE BRITO on 04/13/221924 Last Action: Continued Warfarin Sodium (Warfarin Sodium) 3 Mg Tablet, 3 MG PO DAILY Prescribed by: MARCIE BRITO on 04/13/221905 Last Action: Continued Physical Exam-Cardiology Physical Exam Vital Signs/I&O 04/21/22 08:00 Temp 35.7 Pulse 86 Resp 18 B/P (MAP) 157/85 (109) Pulse Ox 95 O2 Delivery Room Air Capillary Refill : Constitutional: No AAO x 3 (co-operative; oriented to self only); other (thin, frail) Neck: No carotid bruit; carotid pulses are 2 + bilaterally Respiratory: No accessory muscle use, No respiratory distress; chest expansion is symmetric, chest is bilaterally symmetric, lungs clear to auscultation Cardiovascular: regular rate-rhythm (paced rhytm); No JVD; S1 and S2, systolic murmur Gastrointestinal: No tender; soft, round, audible bowel sounds Extremities: no lower extremity edema bilateral Neurologic/Psychiatric: other (left sided upper and lower extremity weakness) Skin: No rash on exposed areas, No ulcerations on exposed areas Data Review Labs Laboratory Tests 04/21/22 05:41: White Blood Count 8.1, Red Blood Count 4.60, Hemoglobin 14.9, Hematocrit 43, Mean Corpuscular Volume 94, Mean Corpuscular Hemoglobin 32, Mean Corpuscular Hemoglobin Concent 35, Red Cell Distribution Width 12.5, Platelet Count 213, Mean Platelet Volume 11.2, Immature Granulocyte % (Auto) 0, Neutrophils (%) (Auto) 56, Lymphocytes (%) (Auto) 26, Monocytes (%) (Auto) 9, Eosinophils (%) (Auto) 8, Basophils (%) (Auto) 1, Neutrophils # (Auto) 4.5, Lymphocytes # (Auto) 2.1, Monocytes # (Auto) 0.7, Eosinophils # (Auto) 0.7H, Basophils # (Auto) 0.1, Immature Granulocyte # (Auto) 0.0, Prothrombin Time 25.7H, INR Comment 2.3H, Sodium Level 138, Potassium Level 4.0, Chloride Level 104, Carbon Dioxide Level 25, Anion Gap 9, Blood Urea Nitrogen 16, Creatinine 1.27, Estimat Glomerular Filtration Rate 56, BUN/Creatinine Ratio 13, Glucose Level 86, Calcium Level 9.0, Corrected Calcium 9.4, Total Bilirubin 0.8, Aspartate Amino Transf (AST/SGOT) 31, Alanine Aminotransferase (ALT/SGPT) 28, Alkaline Phosphatase 70, Total Protein 6.3L, Albumin 3.5 A/P-Cardiology Assessment/Admission Diagnosis Orthostatic hypotension - symptomatic 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 Mcclelland at [facility] states this is 3rd CVA since May of 2021 - CTA of the head and neck showed mod stenosis of both prox internal carotid arteries Chronic a-fib - OAC with warfarin - management per medical services Pacer/AICD - pt does not know any details - per Dr. Guido's notes of 04-09-22 : pulse gen change out on 08-27-[address] Morgan Coronary artery disease - H/O a 3.5x24 mm Promus elements stent to the right coronary artery on June 04, 2013 followed by 2.75x28 mm Promus stent to the circumflex artery done in [facility] on June 05, [address] Ureña's office note of 2013 HTN Chronic systolic/diastolic CHF - Echocardigogram of 04-09-[address] [facility]: LVEF 40-45%. RA mildly dilated. Mod AoV regurg. Severe MR. Severe TR. Severe pulmonary HTN HLD - statin tx H/O tobaccoism - quit smoking in 1979 Discussion and Recomendations Orthostatic hypotension - stop Lisinopril and BB - thigh high compression stockings S/P ischemic CVA - management per Dr. Dunlap Chronic a-fib - OAC with warfarin - currently sub-therapeutic - dose adjusted by medical services - advise changing OAC to NOAC d/t recent thromboembolic CVA while on OAC with warfarin - management per Dr. Dunlap CAD - no c/o CP - continue ASA Monitor lab closely Further recs will be based on his hospital course We would like to thank Dr. Dunlap for this consult Request cardiac records RL MCINTOSH Apr 14, 2022 11:49
--- NOTE | 2022-04-14 11:50 | Occupational Ther Daily Note ---
OT Current Status-Daily Note Subjective Pt agreeable to shower. Co-treat with PT for part of treatment ([id number]) secondary to impaired activity tolerance, poor endurance, safety, visual deficits, weakness, and impaired mobility. Appearance Pt returned to supine in bed, physical therapy in room at OT departure. Mental Status/Objective Patient Orientation: Person (oriented to self only ), Confused ADL-Treatment Therapy Code Descriptions/Definitions Functional [place] Measure: 0=Not Assessed/NA 4=Minimal Assistance 1=Total Assistance 5=Supervision or Setup 2=Maximal Assistance 6=Modified [place] 3=Moderate Assistance 7=Complete IndependenceSCALE: Activities may be completed with or without assistive devices. 2-Whngcxczej-psryota completes the activity by him/herself with no assistance from a helper. 5-Set-up or Clean-up Assistance-helper sets up or cleans up; patient completes activity. [place] assists only prior to or following the activity. 4-Supervision or Touching Assistance-helper provides verbal cues and/or touching/steadying and/or contact guard assistance as patient completes activity. Assistance may be provided throughout the activity or intermittently. 3-Partial/Moderate Assistance-helper does LESS THAN HALF the effort. [place] lifts, holds or supports trunk or limbs, but provides less than half the effort. 2-Substantial/Maximal Assistance-helper does MORE THAN HALF the effort. [place] lifts or holds trunk or limbs and provides more than half the effort. 2-Dqxtzvnxt-ywjoyh does ALL the effort. Patient does none of the effort to complete the activity. Or, the assistance of 2 or more helpers is required for the patient to complete the activity. If activity was not attempted, code reason: 7-Patient Refused. 9-Not Applicable-not attempted and the patient did not perform the activity b efore the current illness, exacerbation or injury. 10-Not Attempted due to Environmental Limitations-(lack of equipment, weather restraints, etc.). 88-Not Attempted due to Medical Conditions or Safety Concerns. Shower/Bathe Self (QC): 3 Upper Body Dressing (QC): 3 Lower Body Dressing (QC): 3 On/Off Footwear: 1 Toileting Hygiene (QC): 3 Toilet Transfer (QC): 3 Pt supine in bed at OT arrival. He reports good sleep and appears well rested. He was agreeable to shower. Min-mod a for balance as he ambulated to bathroom with use of walker. Poor walker management needing cues for safety. Shower performed; 100% in sitting. He was able to reach feet but demonstrates increased effort. Reminders on compensatory methods such as figure 4 method. Min a for thoroughness required when washing buttocks. He donned shirt sitting on shower bench. Assistance needed with bringing overhead and pulling down around torso secondary to c/o weakness. Post donning shirt, pt reports urgency to have a BM. He transferred to toilet and was able to perform majority of anuradha care in sitting. Again, Min a for thoroughness needed. LB clothing donned seated in w/c. Pt begins to c/o increased fatigue and exhibits significant difficulty with lifting feet, thus needing mod a to thread clothing. Increased assistance for balance needed as he stood to manage clothing up to waist. BP taken in sittin/59, standin/53. Post standing, pt with a blank stare, extra time to respond to questions. RN notified. He was returned to supine and BP quickly i ncreases to 120/65. Orthostatics taken. Sittin/68, standin/55. Bilateral (thigh high) debbie hose donned. Education OT Patient Education: Correct positioning, Energy conservation, Modified ADL techniques, Progress toward Goal/Update tx plan, Purpose of tx/functional activities, Reviewed precautions, Rehab process, Safety issues, Transfer mychal brandon W/C management Teaching Recipient: Patient Teaching Methods: Demonstration, Discussion Response to Teaching: Verbalize Understanding, Reinforcement Needed OT Short Term Goals Short Term Goals Time Frame: Apr 25, 2022 Eatin Oral hygiene: 4 Toileting hygiene: 3 Shower/bathe self: 3 Upper body dressin Lower body dressin Putting on/taking off footwear: 4 OT Care Home Goals Worm Raiser Goals Time Frame: May 04, 2022 Eating (QC): 5 Oral Hygiene (QC): 5 Toileting Hygiene (QC): 6 Shower/Bathe Self (QC): 5 Upper Body Dressing (QC): 6 Lower Body Dressing (QC): 6 On/Off Footwear (QC): 5 Additional Goals: 1-Demonstrate ADL Tasks, 2-Verbalize Understanding, 3- ImproveStrength/Jenifer 1=Demonstrate adherence to instructed precautions during ADL tasks. 2=Patient will verbalize/demonstrate understanding of assistive devices/modifications for ADL. 3=Patient will improve strength/tolerance for activity to enable patient to perform ADL's. OT Education/Plan Problem List/Assessment Assessment: Decreased Activ Tolerance, Decreased Safety Aware, Decreased UE Strength, Impaired Cognition, Impaired Coordination, Impaired Funct Balance, Impaired Self-Care Skills, Visual-Perceptual Deficit Discharge Recommendations Plan/Recommendations: Continue POC Therapy Discharge Recommendati: Post Acute OT Equpiment Recommendations-D/C: Bath Chair Treatment Plan/Plan of Care Treatment,Training & Education: Yes Patient would benefit from OT for education, treatment and training to promote independence in ADL's, mobility, safety and/or upper extremity function for ADL's. Plan of Care: ADL Retraining, Caregiver Training, Cognitive Retraining, Concurrent Therapy, Functional Mobility, Group Exercise/Act as Ind, UE Funct Exercise/Act, UE Neuromus Re-Ed/Coord, Visual/Perceptual Retrain, W/C Management Training Treatment Duration: May 04, 2022 Frequency: At least 5 of 7 days/Wk (IRF) Estimated Hrs Per Day: 1.5 hours per day (75-90 minutes) Agreement: Yes Rehab Potential: Fair Time/GCodes Start Time: 10:30 Stop Time: 11:45 Total Time Billed (hr/min): 75 Billed Treatment Time 1 visit ADL x5 Lissett Worley OT Apr 14, 2022 11:50
--- NOTE | 2022-04-14 12:07 | Physical Therapy Daily Note ---
PT Daily Note-Current Subjective Pt. sitting up in w/c with OT present and has just finished bathing ADL. OT reports pt now feeling weak and poor tolerance for standing and activity. Pt. comments he "feels like hell" but at several points during Rx pt. unable to respond. Pt. c/o he has pain in his right shoulder at 5/10. Pain Location: No Pain Reported Mental Status Patient Orientation: Person, Unresponsive (temporarily) pt. needs reoriented to place and time and situation Transfers SCALE: Activities may be completed with or without assistive devices. 1-Aosweyshwi-ckzknij completes the activity by him/herself with no assistance from a helper. 5-Set-up or Clean-up Assistance-helper sets up or cleans up; patient completes activity. [place] assists only prior to or following the activity. 4-Supervision or Touching Assistance-helper provides verbal cues and/or touching/steadying and/or contact guard assistance as patient completes activity. Assistance may be provided throughout the activity or intermittently. 3-Partial/Moderate Assistance-helper does LESS THAN HALF the effort. [place] lifts, holds or supports trunk or limbs, but provides less than half the effort. 2-Substantial/Maximal Assistance-helper does MORE THAN HALF the effort. [place] lifts or holds trunk or limbs and provides more than half the effort. 8-Vudujxujm-pgmhwc does ALL the effort. Patient does none of the effort to complete the activity. Or, the assistance of 2 or more helpers is required for the patient to complete the activity. If activity was not attempted, code reason: 7-Patient Refused. 9-Not Applicable-not attempted and the patient did not perform the activity before the current illness, exacerbation or injury. 10-Not Attempted due to Environmental Limitations-(lack of equipment, weather restraints, etc.). 88-Not Attempted due to Medical Conditions or Safety Concerns. Roll Left & Right (QC): 6 Sit to Lying (QC): 4 Lying to Sitting/Side of Bed(Q: 5 Sit to Stand (QC): 4 Chair/Bds-gj-Nsosa Xfer(QC): 4 pts sit to stand and sit to sup TRF skills waxed and waned as he has apparently orthostatic hypotension and when he sat and stood BP dropped and pt became listless and unresponsive. see BPs below. Weight Bearing Right Lower Extremity: Right Full Weight Bearing Left Lower Extremity: Left Full Weight Bearing Gait Training Does the Patient Walk?: Yes Walk 10 feet (QC): 3 Gait Persons Needed: 1 Gait Assistive Device: FWW pt. ambulated a short dist w/c to bed with mod assist 1, and FWW Exercises Supine Ex: Ankle pumps, Rolling, Heel Slides, Straight leg raise, Hip abd/add Supine Reps: 12 Treatments 30 m co Rx with OT secondary to pts fragile weak condition and safety concerns requiring 2 skilled clinicians to monitor and assess all aspects of Rx and tolerance. pt. sitting in w/c with mild c/o weakness and dizziness but much worse with no response from pt. and tremors and eyes fixed, pt. was quickly sat down, nurse notified with BP of74/53. Pt. was TRFd to bed after BP brady back up to 114/68. . Arvind Garcia assessed pt as well as RN and recommended TEDs to thigh , these were applied, pt. supine and BP then 120/65 . Pt. comfortable in supine and fell asleep as soon as supine. Nursing in to attain EKG. Assessment Current Status: Poor Progress apparent orthostatic hypotension, poor tolerance for sti and stance activities PT Custodial Goals Small Offset Printer Goals PT Small Offset Printer Goals Time Frame: May 12, 2022 Roll Left & Right (QC): 6 Sit to Lying (QC): 6 Lying-Sitting on Side/Bed(QC): 6 Sit to Stand (QC): 6 Chair/Flk-qs-Ljzfz Xfer(QC): 6 Toilet Transfer (QC): 6 Car Transfer (QC): 6 Does the Patient Walk: Yes Walk 10 feet (QC): 6 Walk 50ft with 2 Turns (QC): 6 Walk 150 ft (QC): 4 Walking 10ft on Uneven Surface: 6 1 Step (curb) (QC): 6 4 Steps (QC): 4 12 Steps (QC): 4 Picking up an Object (QC): 6 Does the Pt use WC or Scooter?: No Wheel 50 feet with 2 turns (QC: 88 Wheel 150 feet: 88 PT Plan Treatment/Plan Treatment Plan: Continue Plan of Care Treatment Plan: Bed Mobility, Education, Functional Activity Jenifer, Functional Strength, Group Therapy, Gait, Safety, Therapeutic Exercise, Transfers Treatment Duration: May 12, 2022 Frequency: At least 5 of 7 days/Wk (IRF) Estimated Hrs Per Day: 1.5 hours per day Patient and/or Family Agrees t: Yes Safety Risks/Education Patient Education: Transfer Techniques, Correct Positioning, Safety Issues Teaching Recipient: Patient Response to Teaching: Reinforcement Needed Time/GCodes Time In: 1115 Time Out: 1215 Total Billed Treatment Time: 60 Total Billed Treatment 1,FA40m,EX20m CHENCHO MCMAHON PTA Apr 14, 2022 12:07
--- NOTE | 2022-04-14 13:53 | ST Dysphagia Evaluation ---
Speech Evaluation-General Medical Diagnosis CVA Onset Date: Apr 08, 2022 Therapy Diagnosis Therapy Diagnosis: Oropharyngeal Dysphagia Precautions Precautions: Fall, Pressure Ulcer, Aspiration Precautions/Isolations: Aspiration, Fall Prevention, Standard Precautions, Pressure Ulcer Referral Referring Physician: Dr. Dunlap Medical History Pertinent Medical History: Atrial Fib, CVA, Heart Failure, HTN Current History The patient is a 81 year old male with history of stroke (three), HTN, and CAD, who presents to ARU following a stroke. Reviewed History: Yes Social History Current Living Status: Caregiver Speech PLF/Current-Dysphagia Prior Level of Function The patient denied prior challenges or concerns with his oropharyngeal swallowing function. The patient stated he consumes a regular diet with thin liquids prior to admission and "loves steak. I eat it all the time." Subjective The patient was seated upright in his bed, awake and alert upon entrance to his room by the clinician. The patient greeted the clinician appropriately and was agreeable to participation in the clinical bedside swallowing evaluation. The patient was unable to identify the rationale for his thickened liquids or mechanically altered diet consistency. Cognitive Status Patient Orientation: Person, Place, Time, Situation Oral Motor Skills Dentition: Edentalous Denture Type: Full- Upper & Lower Current Food Consistancy: Dysphagia Soft, Thrall Liquids Ability to Follow Directions: Good Oral Expression Ability: Mild Impairment Voice Voice Phonatory-Based Quality: Normal Voice Pitch: Normal Voice Loudness: Normal Oral-Facial Assessment Oral-Facial Dentition: Normal Labial Seal Description: Normal Lingual Protrusion: Abnormal (Right lingual tip deviation.) Volitional Dry Swallow: Yes Voluntary Cough: Yes Can Clear Throat Volitionally: Yes Productive Cough: Yes Productive Throat Clear: Yes Dysphagia Evaluation Consistencies Presented: Regular, Thin Liquid, Thrall Thick Liquid, Pureed The patient displayed prolonged mastication and poor bolus formation with dry, hard solid consistencies. Laryngeal elevation was present to palpation. The patient displayed s/s of suspected aspiration with thin liquids via teaspoon and straw characterized by an immediate, rigorous cough and delayed throat clearing. The patient did not display overt s/s of suspected aspiration with nectar-thick liquids via teaspoon or straw, puree, or solid consistencies. Dietary Recommendations: Mechanical Soft Liquid Recommendations: Thrall Consistancy Recommendations: - Dysphagia three consistency diet with mildly thick (nectar-thick) liquids, as tolerated. - Fully upright and alert for P.O. intake. - Small, single bites and sips. - Monitor for s/s of suspected aspiration with P.O. intake. If demonstrated, contact speech pathology. - Speech pathology to continue diet tolerance treatment and introduce dysphagia exercises for strengthening and rehabilitation. The patient discussed the results with the patient and the patient's RN immediately following completion. The patient verbalized comprehension of the material. Dysphagia Evaluation Summary The patient demonstrated oropharyngeal dysphagia characterized by prolonged mastication of solid consistencies and poor airway protection in the presence of bolus material. Speech Short Term Goals Short Term Goals Short Term Goals 1. The patient will follow safe swallowing strategies with 90% accuracy and mild clinician verbal cueing and direct modeling. Time Frame-STG: Five Days. Speech Nursing Home Goals Internal Medicine Doctor Goals 1. The patient will tolerate the least restrictive diet consistency without overt s/s of suspected aspiration. Time Frame: One Week. Speech-Plan Treatment Plan Speech Therapy Treatment Plan: Continue Plan of Care Treatment Duration: Apr 28, 2022 Frequency: Modified Program (IRF) (Four to five times per week.) Estimated Hrs Per Day: .5 hour per day Rehab Potential: Guarded Safety Risks/Education Teaching Recipient: Patient Teaching Methods: Discussion Response to Teaching: Verbalize Understanding, Reinforcement Needed Education Topics Provided: Results, Recommendations, Plan of Care, Safe Swallowing Strategies Time Speech Therapy Time In: 10:00 Speech Therapy Time Out: 10:30 Total Billed Time: 30 Billed Treatment Time 1, BERTA DE JESUS [facility] Apr 14, 2022 13:53
--- NOTE | 2022-04-14 14:17 | Physical Therapy Daily Note ---
PT Daily Note-Current Subjective Pt. in bed asleep but awakens when spoken to. While exercising in supine pt. states he needs to urinate. Pain Numeric Pain Scale: 3 Location: No Pain Reported, Right Location Body Site: Shoulder Pain Description: Ache Mental Status Patient Orientation: Person needs reoriented to pace and time Transfers SCALE: Activities may be completed with or without assistive devices. 1-Apiagwxfce-eqafodv completes the activity by him/herself with no assistance from a helper. 5-Set-up or Clean-up Assistance-helper sets up or cleans up; patient completes activity. [place] assists only prior to or following the activity. 4-Supervision or Touching Assistance-helper provides verbal cues and/or touching/steadying and/or contact guard assistance as patient completes acti vity. Assistance may be provided throughout the activity or intermittently. 3-Partial/Moderate Assistance-helper does LESS THAN HALF the effort. [place] lifts, holds or supports trunk or limbs, but provides less than half the effort. 2-Substantial/Maximal Assistance-helper does MORE THAN HALF the effort. [place] lifts or holds trunk or limbs and provides more than half the effort. 8-Oigpgdtio-jgitxj does ALL the effort. Patient does none of the effort to complete the activity. Or, the assistance of 2 or more helpers is required for the patient to complete the activity. If activity was not attempted, code reason: 7-Patient Refused. 9-Not Applicable-not attempted and the patient did not perform the activity before the current illness, exacerbation or injury. 10-Not Attempted due to Environmental Limitations-(lack of equipment, weather restraints, etc.). 88-Not Attempted due to Medical Conditions or Safety Concerns. Roll Left & Right (QC): 6 Sit to Lying (QC): 6 Lying to Sitting/Side of Bed(Q: 6 Sit to Stand (QC): 4 Chair/Evi-rx-Wwrew Xfer(QC): 4 Toilet Transfer (QC): 4 Weight Bearing Right Lower Extremity: Right Full Weight Bearing Left Lower Extremity: Left Full Weight Bearing Gait Training Gait Assistive Device: FWW 6-7 feet BSC to bed FWW min assist Exercises Supine Ex: Bridging, Ankle pumps, Quad Set, Rolling, Heel Slides, Scooting (up oin bed indep) Treatments pt. during supine ex states he needs to urinate, was assisted to stand at edge of bed , as he began to urinate stated he was having a BM, incont of BM was assisted mod to min to BSC, had lg loose BM and was assisted max to clean up and change brief and back to bed with use of FWW walking 5 ft min to mod asst, in bed bryan at hand Assessment Current Status: Fair Progress no c/o dizziness this PM PT Ultrasound Coordinator Goals Prison Goals PT Prison Goals Time Frame: May 12, 2022 Roll Left & Right (QC): 6 Sit to Lying (QC): 6 Lying-Sitting on Side/Bed(QC): 6 Sit to Stand (QC): 6 Chair/Yan-ee-Rfcgq Xfer(QC): 6 Toilet Transfer (QC): 6 Car Transfer (QC): 6 Does the Patient Walk: Yes Walk 10 feet (QC): 6 Walk 50ft with 2 Turns (QC): 6 Walk 150 ft (QC): 4 Walking 10ft on Uneven Surface: 6 1 Step (curb) (QC): 6 4 Steps (QC): 4 12 Steps (QC): 4 Picking up an Object (QC): 6 Does the Pt use WC or Scooter?: No Wheel 50 feet with 2 turns (QC: 88 Wheel 150 feet: 88 PT Plan Treatment/Plan Treatment Plan: Continue Plan of Care Treatment Plan: Bed Mobility, Education, Functional Activity Jenifer, Functional Strength, Group Therapy, Gait, Safety, Therapeutic Exercise, Transfers Treatment Duration: May 12, 2022 Frequency: At least 5 of 7 days/Wk (IRF) Estimated Hrs Per Day: 1.5 hours per day Patient and/or Family Agrees t: Yes Safety Risks/Education Patient Education: Gait Training, Transfer Techniques, Reviewed Precautions, Correct Positioning, Safety Issues Teaching Recipient: Patient Teaching Methods: Demonstration, Discussion Response to Teaching: Verbalize Understanding, Return Demonstration, Reinforcement Needed Time/GCodes Time In: 1345 Time Out: 1415 Total Billed Treatment Time: 30 Total Billed Treatment 1,FATarasm CHENCHO MCMAHON BILINGUAL OFFICE ASSISTANT Apr 14, 2022 14:17
--- NOTE | 2022-04-14 15:26 | Consultation-Cardiology ---
HPI-Cardiology Cardiology Consultation: Date of Consultation 04/14/22 Time Seen by a Provider: 15:10 Date of Admission Attending Physician Deleted Admitting Physician Admitting Physician: Alea Dunlap DO Attending Physician: Alea Dunlap DO Consulting Physician ALFONSO JOHNSON MD, MA, FACP, FACC, FSCAI, CCDS HPI: Chief Complaint: Orthostatic hypotension Mr. Hsieh is an 81 yr old male who has been admitted to [facility] from [facility] [place], [place] following treatment for CVA. He is oriented to self and able to tell me he is from [place], otherwise he is disoriented to place and time. He is cooperative, but unable to provide any information. Information is obtained per nursing, PT and chart review. Yesterday staff got him up and out of bed at which time he reported dizziness and weakness. It is reported his BP was low, but no BP was documented for that incident. This morning while lying in bed his BP was 140 systolic therefore he received Lisinopril and Lopressor. PT was getting him out of bed mid-morning when he felt weak and dizzy. His BP was noted to be 74/53. He was laid back down and after several minutes his BP was rechecked and noted to be 120 systolic. No c/o CP. No syncope or near syncope. No LE swelling. No report of nausea. Review of Systems-Cardiology All Other Systems Reviewed Negative Unless Noted: Yes FAR-Kskwiv-Bbgbjo Hx Patient Social History Marrital Status: cohabiting Employed/Student: retired Smoking Status: Former Smoker Have you traveled recently?: No Alcohol Use?: Yes Pt feels they are or have been: No Tobacco type used: Cigarettes Past Medical History PMH As described under Assessment. Family Medical History Family Medical History: Unable to obtain d/t confusion Allergies and Home Medications Allergies Coded Allergies: No Known Drug Allergies (Unverified , 06/03/13) Patient Home Medication List Home Medication List Reviewed: Yes Aspirin (Baby Aspirin Chewable Tablet) 81 Mg Chew, 81 MG PO HS, (Reported) Entered as Reported by: ANUJ MILLS on 06/03/13 1405 Last Action: Reviewed Atorvastatin Calcium (Atorvastatin Calcium) 80 Mg Tablet, 80 MG PO DAILY Prescribed by: MARCIE BRITO on 04/13/22 1906 Last Action: Continued Citalopram Hydrobromide (Celexa) 20 Mg Tablet, 20 MG PO DAILY Prescribed by: MARCIE BRITO on 04/13/221905 Last Action: Continued Digoxin (Digox) 125 Mcg (0.125 Mg) Tablet, 125 MCG PO DAILY Prescribed by: MARCIE BRITO on 04/13/221905 Last Action: Continued Hydrocodone/Acetaminophen (Hydrocodone-Acetamin 7.5-325) 7.5 Mg-325 Mg Tablet, 1 EACH PO Q6H PRN for PAIN-MODERATE (5-7) Prescribed by: MARCIE BRITO on 04/13/221927 Last Action: Continued Lisinopril (Lisinopril) 20 Mg Tablet, 20 MG PO DAILY Prescribed by: MARCIE BRITO on 04/13/221905 Last Action: Continued Metoprolol Tartrate (Metoprolol Tartrate) 25 Mg Tablet, 25 MG PO BID Prescribed by: MARCIE BRITO on 04/13/221905 Last Action: Continued Ofloxacin (Ofloxacin) 0.3 % Drops, 5 ML OP QID Prescribed by: MARCIE BRITO on 04/13/221924 Last Action: Continued Warfarin Sodium (Warfarin Sodium) 3 Mg Tablet, 3 MG PO DAILY Prescribed by: MARCIE BRITO on 04/13/221905 Last Action: Continued Discontinued Medications Amiodarone Hcl (Amiodarone Hcl) 400 Mg Tablet, 200 MG PO HS, (Reported) Discontinued Reason: No Longer Taking Entered as Reported by: ANUJ MILLS on 06/03/131404 Last Action: Discontinued Atenolol (Tenormin 25 Mg) 25 Mg Tablet, 25 MG PO HS, (Reported) Discontinued Reason: No Longer Taking Entered as Reported by: ANUJ MILLS on 06/03/131404 Last Action: Discontinued Enalapril Maleate (Vasotec Tablet) 5 Mg Tab, 5 MG PO HS, (Reported) Discontinued Reason: No Longer Taking Entered as Reported by: ANUJ MILLS on 06/03/131404 Last Action: Discontinued Hydrocodone Bit/Acetaminophen (Hydrocodon-Acetaminophen 5-500) 1 Each Tablet, 5- 500 MG PO EVERY 6-8 HOURS PRN, (Reported) Discontinued Reason: No Longer Taking Entered as Reported by: MAYCOL ROSARIO on 06/03/13 1525 Last Action: Discontinued Meloxicam (Meloxicam) 15 Mg Tablet, 15 MG PO HS, (Reported) Discontinued Reason: No Longer Taking Entered as Reported by: ANUJ MILLS on 06/03/131404 Last Action: Discontinued Union-3/Dha/Epa/Fish Oil (Fish Oil 1,400 Mg Softgel) 1 Each Capsule.dr, 1,400 MG PO HS, (Reported) Discontinued Reason: No Longer Taking Entered as Reported by: ANUJ MILLS on 06/03/131404 Last Action: Discontinued Rosuvastatin Calcium (Crestor) 10 Mg Tablet, 10 MG PO HS, (Reported) Discontinued Reason: No Longer Taking Entered as Reported by: ANUJ MILLS on 06/03/131404 Last Action: Discontinued Ticagrelor (Brilinta) 90 Mg Tablet, 90 MG PO BID, (Reported) Discontinued Reason: No Longer Taking Entered as Reported by: NANETTE GRACIA on 06/05/131136 Last Action: Discontinued Warfarin Sodium (Coumadin) 5 Mg Tablet, 5 MG PO DAILY, (Reported) Discontinued Reason: No Longer Taking Entered as Reported by: NANETTE GRACIA on 06/05/131136 Last Action: Discontinued Physical Exam-Cardiology Physical Exam Vital Signs/I&O 04/14/22 04/14/22 07:31 09:00 Temp 36.3 Pulse 69 Resp 16 B/P (MAP) 158/90 (112) Pulse Ox 96 O2 Delivery Room Air Room Air Capillary Refill : Constitutional: No AAO x 3 (co-operative; oriented to self only); other (thin, frail) Neck: No carotid bruit; carotid pulses are 2 + bilaterally Respiratory: No accessory muscle use, No respiratory distress; chest expansion is symmetric, chest is bilaterally symmetric, lungs clear to auscultation Cardiovascular: regular rate-rhythm (paced rhytm); No JVD; S1 and S2, systolic murmur Gastrointestinal: No tender; soft, round, audible bowel sounds Extremities: no lower extremity edema bilateral Neurologic/Psychiatric: other (left sided upper and lower extremity weakness) Skin: No rash on exposed areas, No ulcerations on exposed areas Data Review Labs Laboratory Tests 04/14/22 05:17: White Blood Count 6.6, Red Blood Count 4.25L, Hemoglobin 13.5, Hematocrit 40, Mean Corpuscular Volume 93, Mean Corpuscular Hemoglobin 32, Mean Corpuscular Hemoglobin Concent 34, Red Cell Distribution Width 12.2, Platelet Count 204, Mean Platelet Volume 10.6, Immature Granulocyte % (Auto) 1, Neutrophils (%) (Auto) 55, Lymphocytes (%) (Auto) 26, Monocytes (%) (Auto) 9, Eosinophils (%) (Auto) 9, Basophils (%) (Auto) 1, Neutrophils # (Auto) 3.6, Lymphocytes # (Auto) 1.7, Monocytes # (Auto) 0.6, Eosinophils # (Auto) 0.6H, Basophils # (Auto) 0.1, Immature Granulocyte # (Auto) 0.0, Prothrombin Time 20.9H, INR Comment 1.8H, Sodium Level 138, Potassium Level 3.9, Chloride Level 106, Carbon Dioxide Level 21, Anion Gap 11, Blood Urea Nitrogen 21H, Creatinine 0.98, Estimat Glomerular Filtration Rate 77, BUN/Creatinine Ratio 21, Glucose Level 82, Calcium Level 9.0, Corrected Calcium 9.5, Total Bilirubin 1.3H, Aspartate Amino Transf (AST/SGOT) 17, Alanine Aminotransferase (ALT/SGPT) 13, Alkaline Phosphatase 60, Total Protein 6.2L, Albumin 3.4 A/P-Cardiology Assessment/Admission Diagnosis Orthostatic hypotension - symptomatic 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 Mcclelland at [facility] states this is 3rd CVA since May of 2021 - CTA of the head and neck showed mod stenosis of both prox internal carotid arteries Chronic a-fib - OAC with warfarin - management per medical services Pacer/AICD - pt does not know any details - per Dr. Guido's notes of 04-09-22 : pulse gen change out on 08-27-[address] Morgan Coronary artery disease - H/O a 3.5x24 mm Promus elements stent to the right coronary artery on June 04, 2013 followed by 2.75x28 mm Promus stent to the circumflex artery done in [facility] on June 05, [address] Ureña's office note of 2013 HTN Chronic systolic/diastolic CHF - Echocardigogram of 04-09-22 at [facility]: LVEF 40-45%. RA mildly dilated. Mod AoV regurg. Severe MR. Severe TR. Severe pulmonary HTN HLD - statin tx H/O tobaccoism - quit smoking in 1979 Discussion and Recomendations Orthostatic hypotension - stop Lisinopril and BB - thigh high compression stockings S/P ischemic CVA - management per Dr. Dunlap Chronic a-fib - OAC with warfarin - currently sub-therapeutic - dose adjusted by medical se rvices - advise changing OAC to NOAC d/t recent thromboembolic CVA while on OAC with warfarin - management per Dr. Dunlap CAD - no c/o CP - continue ASA Monitor lab closely Further recs will be based on his hospital course We would like to thank Dr. Dunlap for this consult Request cardiac records ALFONSO JOHNSON MD FACP FAC CCDS Apr 14, 2022 15:26
[2022-04-14] MEDS: warFARin 1 MG (COUMADIN) TAB PO SCH (19:01)
[2022-04-14] MEDS: warFARin 2.5 MG (COUMADIN) TAB PO SCH (19:01)
[2022-04-14 19:55] VITALS: BP 152/80
[2022-04-14] MEDS: ASPIRIN 81 MG CHEW (CHILDREN'S ASA) PO SCH (20:34)
--- NOTE | 2022-04-15 06:35 | PM&R Progress Note ---
Subjective HPI/CC On Admission Date Seen by Provider: Apr 15, 2022 Time Seen by Provider: 12:00 Subjective/Events-last exam 04/15/2022: Doing well Had orthostasis yesterday and Dr Garcia adjusted meds Patient denies pain No falls 04/14/2022: Pt is doing pretty well He is a bit confused Bed alarm on for fall risk Checked meds and labs No falls Review of Systems General: Fatigue, Malaise Neurological: Confusion Objective Exam Vital Signs Vital Signs Date Time Temp Pulse Resp B/P (MAP) Pulse Ox O2 Delivery O2 Flow Rate FiO2 04/15/22 13:52 69 139/69 (92) 04/15/22 09:28 Room Air 04/15/22 07:30 36.2 18 96 Capillary Refill : General Appearance: No Apparent Distress, WD/WN, Chronically ill, Thin HEENT: PERRL/EOMI, Normal ENT Inspection, Pharynx Normal, Moist Mucous Membranes Neck: Non Tender, Supple Respiratory: Chest Non Tender, Lungs Clear, Normal Breath Sounds, No Accessory Muscle Use, No Respiratory Distress Cardiovascular: Regular Rate, Rhythm, No Edema, No Gallop, No JVD Gastrointestinal: Normal Bowel Sounds, No Organomegaly, No Pulsatile Mass, Non Tender, Soft Rectal: Deferred Extremity: No Pedal Edema, Calf Tenderness (mild) Neurologic/Psychiatric: Alert, Normal Mood/Affect, Motor Weakness (Generalized all extremities) Skin: Normal Color, Warm/Dry Lymphatic: No Adenopathy Results/Procedures Lab Laboratory Tests 04/15/22 05:16 Patient resulted labs reviewed. FIM Transfers Therapy Code Descriptions/Definitions Functional [place] Measure: 0=Not Assessed/NA 4=Minimal Assistance 1=Total Assistance 5=Supervision or Setup 2=Maximal Assistance 6=Modified [place] 3=Moderate Assistance 7=Complete IndependenceSCALE: Activities may be completed with or without assistive devices. 1-Pxfhxiegra-tntoaqo completes the activity by him/herself with no assistance from a helper. 5-Set-up or Clean-up Assistance-helper sets up or cleans up; patient completes activity. [place] assists only prior to or following the activity. 4-Supervision or Touching Assistance-helper provides verbal cues and/or touching/steadying and/or contact guard assistance as patient completes activity. Assistance may be provided throughout the activity or intermittently. 3-Partial/Moderate Assistance-helper does LESS THAN HALF the effort. [place] lifts, holds or supports trunk or limbs, but provides less than half the effort. 2-Substantial/Maximal Assistance-helper does MORE THAN HALF the effort. [place] lifts or holds trunk or limbs and provides more than half the effort. 2-Gziqjbrmx-tlpdit does ALL the effort. Patient does none of the effort to comp lete the activity. Or, the assistance of 2 or more helpers is required for the patient to complete the activity. If activity was not attempted, code reason: 7-Patient Refused. 9-Not Applicable-not attempted and the patient did not perform the activity before the current illness, exacerbation or injury. 10-Not Attempted due to Environmental Limitations-(lack of equipment, weather restraints, etc.). 88-Not Attempted due to Medical Conditions or Safety Concerns. Roll Left to Right (QC): 6 Sit to Lying (QC): 6 Sit to Stand (QC): 4 Chair/Mct-et-Jywmx Xfer(QC): 4 Car Transfer (QC): 3 Gait Training Does the Patient Walk?: Yes Walk 10 feet (QC): 3 Walk 50 ft with 2 Turns(QC): 3 Walk 150 ft (QC): 88 Walking 10ft/uneven surface-QC: 4 Gait Persons Needed: 1 Gait Assistive Device: FWW Wheelchair Training Does the Pt Use a Wheelchair?: Yes Distance: 80 Wheel 50 ft with 2 turns (QC): 3 Wheel 150 ft (QC): 8 Type of Wheelchair: Manual Stair Training #of Steps: 12 1 Step (curb) (QC): 4 4 Steps (QC): 3 12 Steps (QC): 2 Balance Picking up an Object (QC): 4 ADL-Treatment Eating (QC): 4 (per clinical judgement) Shower/Bathe Self (QC): 3 Upper Body Dressing (QC): 3 Lower Body Dressing (QC): 3 On/Off Footwear (QC): 1 Toileting Hygiene (QC): 3 Toilet Transfer (QC): 3 Assessment/Plan Assessment and Plan Assess & Plan/Chief Complaint Assessment: 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
[2022-04-15 06:38] LABS: POTASSIUM 3.8 MMOL/L (3.6-5.0)
[2022-04-15 06:44] LABS: CREATININE SERUM 1.06 MG/DL (0.60-1.30)
[2022-04-15 07:30] VITALS: BP 154/85
[2022-04-15] MEDS: DIGOXIN 0.125 MG (LANOXIN) TAB PO SCH (08:16)
[2022-04-15] MEDS: DOCUSATE SODIUM 100 MG (COLACE) CAP PO SCH ×2 (08:16→20:50)
[2022-04-15] MEDS: polyethylene glycoL POWDER 17 GM (MIRALAX) PACK PO SCH ×2 (08:17→20:50)
[2022-04-15] MEDS: SENNA W/DOCUSATE (SENOKOT S) TABLET PO SCH ×2 (08:17→20:50)
[2022-04-15] MEDS: OFLOXACIN 0.3% OPHTH SOLN 5 ML OP SCH ×4 (08:17→20:39)
--- NOTE | 2022-04-15 11:22 | Physical Therapy Daily Note ---
PT Daily Note-Current Subjective Pt in recliner upon arrival and agrees to PT. Does not report any pain at this time. Mental Status Patient Orientation: Person, Confused, Place Transfers SCALE: Activities may be completed with or without assistive devices. 6-Jalewgemgw-tbkvocx completes the activity by him/herself with no assistance from a helper. 5-Set-up or Clean-up Assistance-helper sets up or cleans up; patient completes activity. [place] assists only prior to or following the activity. 4-Supervision or Touching Assistance-helper provides verbal cues and/or touching/steadying and/or contact guard assistance as patient completes activity. Assistance may be provided throughout the activity or intermittently. 3-Partial/Moderate Assistance-helper does LESS THAN HALF the effort. [place] lifts, holds or supports trunk or limbs, but provides less than half the effort. 2-Substantial/Maximal Assistance-helper does MORE THAN HALF the effort. [place] lifts or holds trunk or limbs and provides more than half the effort. 2-Crnfhzuia-azxojt does ALL the effort. Patient does none of the effort to complete the activity. Or, the assistance of 2 or more helpers is required for the patient to complete the activity. If activity was not attempted, code reason: 7-Patient Refused. 9-Not Applicable-not attempted and the patient did not perform the activity before the current illness, exacerbation or injury. 10-Not Attempted due to Environmental Limitations-(lack of equipment, weather restraints, etc.). 88-Not Attempted due to Medical Conditions or Safety Concerns. Sit to Stand (QC): 4 Weight Bearing Right Lower Extremity: Right Full Weight Bearing Left Lower Extremity: Left Full Weight Bearing Gait Training Does the Patient Walk?: Yes Distance: 75' x 4 Walk 10 feet (QC): 4 Walk 50 ft with 2 Turns(QC): 3 Gait Persons Needed: 1 Gait Assistive Device: FWW Treatments Pt amb to chairs in gong and then requires rest break. Then amb to therapy gym and needs a rest break and then amb back to gong to rest. Then amb back to room and TFs back to recliner. As PT departs all needs met and call light nearby bedrails up. Assessment Current Status: Good Progress Pt balance remains poor and requires frequent cues about FWW placement during amb. Pt continues to fatigue very quickly. PT Half-Way Goals Half-Way Goals PT Tire Curer Goals Time Frame: May 12, 2022 Roll Left & Right (QC): 6 Sit to Lying (QC): 6 Lying-Sitting on Side/Bed(QC): 6 Sit to Stand (QC): 6 Chair/Fhh-xu-Kprjt Xfer(QC): 6 Toilet Transfer (QC): 6 Car Transfer (QC): 6 Does the Patient Walk: Yes Walk 10 feet (QC): 6 Walk 50ft with 2 Turns (QC): 6 Walk 150 ft (QC): 4 Walking 10ft on Uneven Surface: 6 1 Step (curb) (QC): 6 4 Steps (QC): 4 12 Steps (QC): 4 Picking up an Object (QC): 6 Does the Pt use WC or Scooter?: No Wheel 50 feet with 2 turns (QC: 88 Wheel 150 feet: 88 PT Plan Problem List Problem List: Activity Tolerance, Functional Strength, Safety Treatment/Plan Treatment Plan: Continue Plan of Care Treatment Plan: Bed Mobility, Education, Functional Activity Jenifer, Functional Strength, Group Therapy, Gait, Safety, Therapeutic Exercise, Transfers Treatment Duration: May 12, 2022 Frequency: At least 5 of 7 days/Wk (IRF) Estimated Hrs Per Day: 1.5 hours per day Patient and/or Family Agrees t: Yes Safety Risks/Education Patient Education: Gait Training, Transfer Techniques, Correct Positioning Teaching Recipient: Patient Teaching Methods: Discussion Response to Teaching: Return Demonstration Time/GCodes Time In: 0945 Time Out: 1005 Total Billed Treatment Time: 20 Total Billed Treatment 1, Ex DONYA,ZARI JIANG Apr 15, 2022 11:22
--- NOTE | 2022-04-15 13:32 | Progress Note - Cardiology ---
Cardiology SOAP Progress Note Subjective: No cp or palp or syncope No shortness of breath at rest Gen weakness and malaise No n/v/d Objective: I&O/Vital Signs 04/15/22 04/15/22 07:30 09:28 Temp 36.2 Pulse 69 Resp 18 B/P (MAP) 154/85 (108) Pulse Ox 96 O2 Delivery Room Air Room Air Weight (Pounds): 183 Weight (Ounces): 0.0 Weight (Calculated Kilograms): 83.092538 Constitutional: No AAO x 3 (co-operative; oriented to self only); other (thin, frail) Respiratory: No accessory muscle use, No respiratory distress; chest expansion is symmetric, chest is bilaterally symmetric, lungs clear to auscultation Cardiovascular: regular rate-rhythm (paced rhytm); No JVD; S1 and S2, systolic murmur Gastrointestional: No tender; soft, round, audible bowel sounds Extremities: no lower extremity edema bilateral Neurologic/Psychiatric: other (left sided upper and lower extremity weakness) Skin: No rash on exposed areas, No ulcerations on exposed areas Results/Procedures: Labs Laboratory Tests 04/15/22 05:16: Sodium Level 138, Potassium Level 3.8, Chloride Level 106, Carbon Dioxide Level 20L, Anion Gap 12, Blood Urea Nitrogen 19H, Creatinine 1.06, Estimat Glomerular Filtration Rate 70, BUN/Creatinine Ratio 18, Glucose Level 85, Calcium Level 9.0, Digoxin Level 0.47L Laboratory Tests 04/14/22 05:17 04/15/22 05:16 A/P: Assessment: Orthostatic hypotension - symptomatic 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 Mcclelland at [facility] states this is 3rd CVA since May of 2021 - CTA of the head and neck showed mod stenosis of both prox internal carotid arteries Chronic a-fib - OAC with warfarin - management per medical services Pacer/AICD - pt does not know any details - per Dr. Guido's notes of 04-09-22 : pulse gen change out on 08-27-[address] Morgan Coronary artery disease - H/O a 3.5x24 mm Promus elements stent to the right coronary artery on June 04, 2013 followed by 2.75x28 mm Promus stent to the circumflex artery done in [facility] on June 05, [address] Ureña's office note of 2013 HTN Chronic systolic/diastolic CHF - Echocardigogram of 04-09-22 at [facility]: LVEF 40-45%. RA mildly dilated. Mod AoV regurg. Severe MR. Severe TR. Severe pulmonary HTN HLD - statin tx H/O tobaccoism - quit smoking in 1979 Plan: * Gradually add heart failure meds in low doses (given h/o orthostasis) * Monitor labs, including INR ALFONSO JOHNSON MD FACP FAC CCDS Apr 15, 2022 13:32
[2022-04-15] MEDS ORDERED: lisINopril 5 MG (PRINIVIL) TABLET PO ONE (13:45)
[2022-04-15 13:52] VITALS: BP 139/69
[2022-04-15] MEDS: warFARin 2.5 MG (COUMADIN) TAB PO SCH (17:25)
[2022-04-15] MEDS: warFARin 1 MG (COUMADIN) TAB PO SCH (17:25)
[2022-04-15 20:00] VITALS: BP 132/87
[2022-04-15] MEDS: ASPIRIN 81 MG CHEW (CHILDREN'S ASA) PO SCH (20:39)
[2022-04-16 04:45] LABS: BASOPHILS # (AUTO) 0.1 10^3/uL (0.0-0.1); BASOPHILS % (AUTO) 1 % (0-10); EOSINOPHILS # (AUTO) 0.7 10^3/uL (0.0-0.3); EOSINOPHILS % (AUTO) 8 % (0-10); HEMATOCRIT 41 % (40-54); HEMOGLOBIN 14.1 g/dL (13.3-17.7); LYMPHOCYTES # (AUTO) 2.1 10^3/uL (1.0-4.0); LYMPHOCYTES % (AUTO) 26 % (12-44); MEAN CORPUSCULAR HEMOGLOBIN 32 pg (25-34); MEAN CORPUSCULAR HGB CONC 35 g/dL (32-36); MEAN CORPUSCULAR VOLUME 93 fL (80-99); MEAN PLATELET VOLUME 10.2 fL (9.0-12.2); MONOCYTES # (AUTO) 0.8 10^3/uL (0.0-1.0); MONOCYTES % (AUTO) 9 % (0-12); NEUTROPHILS # (AUTO) 4.5 10^3/uL (1.8-7.8); NEUTROPHILS % (AUTO) 55 % (42-75); PLATELET COUNT 225 10^3/uL (130-400); WHITE BLOOD COUNT 8.2 10^3/uL (4.3-11.0)
[2022-04-16 05:05] LABS: INR 1.7 (0.8-1.4); PROTHROMBIN TIME PATIENT 20.5 SEC (12.2-14.7)
[2022-04-16 05:12] LABS: ALBUMIN 3.4 GM/DL (3.2-4.5)
[2022-04-16 05:13] LABS: CALCIUM 8.9 MG/DL (8.5-10.1)
[2022-04-16 05:14] LABS: TOTAL PROTEIN 6.2 GM/DL (6.4-8.2)
[2022-04-16 05:16] LABS: BILIRUBIN,TOTAL 1.1 MG/DL (0.1-1.0)
[2022-04-16 05:18] LABS: CREATININE SERUM 1.23 MG/DL (0.60-1.30)
--- NOTE | 2022-04-16 06:59 | PM&R Progress Note ---
Subjective HPI/CC On Admission Date Seen by Provider: Apr 16, 2022 Time Seen by Provider: 12:00 Subjective/Events-last exam 04/16/2022: Patient seems to be doing well Poor memory recall No pain reported 04/15/2022: Doing well Had orthostasis yesterday and Dr Garcia adjusted meds Patient denies pain No falls 04/14/2022: Pt is doing pretty well He is a bit confused Bed alarm on for fall risk Checked meds and labs No falls Review of Systems General: Fatigue, Malaise Objective Exam Vital Signs Vital Signs Date Time Temp Pulse Resp B/P (MAP) Pulse Ox O2 Delivery O2 Flow Rate FiO2 04/16/22 09:26 Room Air 04/16/22 09:17 70 127/78 (94) 04/16/22 07:30 36.5 16 94 Capillary Refill : General Appearance: No Apparent Distress, WD/WN, Chronically ill, Thin HEENT: PERRL/EOMI, Normal ENT Inspection, Pharynx Normal, Moist Mucous Membranes Neck: Non Tender, Supple Respiratory: Chest Non Tender, Lungs Clear, Normal Breath Sounds, No Accessory Muscle Use, No Respiratory Distress Cardiovascular: Regular Rate, Rhythm, No Edema, No Gallop, No JVD Gastrointestinal: Normal Bowel Sounds, No Organomegaly, No Pulsatile Mass, Non Tender, Soft Rectal: Deferred Extremity: No Pedal Edema, Calf Tenderness (mild) Neurologic/Psychiatric: Alert, Normal Mood/Affect, Motor Weakness (Generalized all extremities) Skin: Normal Color, Warm/Dry Lymphatic: No Adenopathy Results/Procedures Lab Laboratory Tests 04/16/22 04:35 Patient resulted labs reviewed. FIM Transfers Therapy Code Descriptions/Definitions Functional [place] Measure: 0=Not Assessed/NA 4=Minimal Assistance 1=Total Assistance 5=Supervision or Setup 2=Maximal Assistance 6=Modified [place] 3=Moderate Assistance 7=Complete IndependenceSCALE: Activities may be completed with or without assistive devices. 5-Wpewrblubq-pivtoop completes the activity by him/herself with no assistance from a helper. 5-Set-up or Clean-up Assistance-helper sets up or cleans up; patient completes activity. [place] assists only prior to or following the activity. 4-Supervision or Touching Assistance-helper provides verbal cues and/or touching/steadying and/or contact guard assistance as patient completes activity. Assistance may be provided throughout the activity or intermittently. 3-Partial/Moderate Assistance-helper does LESS THAN HALF the effort. [place] lifts, holds or supports trunk or limbs, but provides less than half the effort. 2-Substantial/Maximal Assistance-helper does MORE THAN HALF the effort. [place] lifts or holds trunk or limbs and provides more than half the effort. 7-Pienjcsfd-jfvdvf does ALL the effort. Patient does none of the effort to complete the activity. Or, the assistance of 2 or more helpers is required for the patient to complete the activity. If activity was not attempted, code reason: 7-Patient Refused. 9-Not Applicable-not attempted and the patient did not perform the activity before the current illness, exacerbation or injury. 10-Not Attempted due to Environmental Limitations-(lack of equipment, weather restraints, etc.). 88-Not Attempted due to Medical Conditions or Safety Concerns. Roll Left to Right (QC): 6 Sit to Lying (QC): 6 Sit to Stand (QC): 4 Chair/Hrq-dc-Qtllq Xfer(QC): 4 Car Transfer (QC): 3 Gait Training Does the Patient Walk?: Yes Distance: 75' x 4 Walk 10 feet (QC): 4 Walk 50 ft with 2 Turns(QC): 3 Walk 150 ft (QC): 88 Walking 10ft/uneven surface-QC: 4 Gait Persons Needed: 1 Gait Assistive Device: FWW Wheelchair Training Does the Pt Use a Wheelchair?: Yes Distance: 80 Wheel 50 ft with 2 turns (QC): 3 Wheel 150 ft (QC): 8 Type of Wheelchair: Manual Stair Training #of Steps: 12 1 Step (curb) (QC): 4 4 Steps (QC): 3 12 Steps (QC): 2 Balance Picking up an Object (QC): 4 ADL-Treatment Eating (QC): 4 (per clinical judgement) Shower/Bathe Self (QC): 3 Upper Body Dressing (QC): 3 Lower Body Dressing (QC): 3 On/Off Footwear (QC): 1 Toileting Hygiene (QC): 3 Toilet Transfer (QC): 3 Assessment/Plan Assessment and Plan Assess & Plan/Chief Complaint Assessment: 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
[2022-04-16 07:30] VITALS: BP 113/69
[2022-04-16] MEDS: DIGOXIN 0.125 MG (LANOXIN) TAB PO SCH (08:01)
[2022-04-16] MEDS: OFLOXACIN 0.3% OPHTH SOLN 5 ML OP SCH ×4 (08:01→20:21)
[2022-04-16] MEDS: DOCUSATE SODIUM 100 MG (COLACE) CAP PO SCH ×2 (08:01→21:18)
[2022-04-16] MEDS: polyethylene glycoL POWDER 17 GM (MIRALAX) PACK PO SCH ×2 (08:02→21:18)
[2022-04-16] MEDS: SENNA W/DOCUSATE (SENOKOT S) TABLET PO SCH ×2 (08:02→21:18)
[2022-04-16 09:17] VITALS: BP 127/78
[2022-04-16] MEDS: lisINopril 5 MG (PRINIVIL) TABLET PO SCH (09:21)
[2022-04-16] MEDS: warFARin 5 MG (COUMADIN) TAB PO SCH (17:17)
[2022-04-16 20:12] VITALS: BP 133/69
[2022-04-16] MEDS: ASPIRIN 81 MG CHEW (CHILDREN'S ASA) PO SCH (20:21)
[2022-04-16] MEDS: HYDROcodone/APAP 7.5 MG/325 MG (LORTAB, LORCET PLUS) TABLET PO PRN (20:22)
[2022-04-17 06:56] LABS: INR 1.8 (0.8-1.4); PROTHROMBIN TIME PATIENT 21.2 SEC (12.2-14.7)
--- NOTE | 2022-04-17 07:18 | PM&R Progress Note ---
Subjective HPI/CC On Admission Date Seen by Provider: Apr 17, 2022 Time Seen by Provider: 12:00 Subjective/Events-last exam 04/17/2022: No major issues No pain reported Checked meds and labs 04/16/2022: Patient seems to be doing well Poor memory recall No pain reported 04/15/2022: Doing well Had orthostasis yesterday and Dr Garcia adjusted meds Patient denies pain No falls 04/14/2022: Pt is doing pretty well He is a bit confused Bed alarm on for fall risk Checked meds and labs No falls Review of Systems General: Fatigue, Malaise Objective Exam Vital Signs Vital Signs Date Time Temp Pulse Resp B/P (MAP) Pulse Ox O2 Delivery O2 Flow Rate FiO2 04/17/22 09:24 62 04/17/22 08:30 Room Air 04/17/22 07:19 35.8 16 120/69 (86) 95 Capillary Refill : General Appearance: No Apparent Distress, WD/WN, Chronically ill, Thin HEENT: PERRL/EOMI, Normal ENT Inspection, Pharynx Normal, Moist Mucous Membranes Neck: Non Tender, Supple Respiratory: Chest Non Tender, Lungs Clear, Normal Breath Sounds, No Accessory Muscle Use, No Respiratory Distress Cardiovascular: Regular Rate, Rhythm, No Edema, No Gallop, No JVD Gastrointestinal: Normal Bowel Sounds, No Organomegaly, No Pulsatile Mass, Non Tender, Soft Rectal: Deferred Extremity: No Pedal Edema, Calf Tenderness (mild) Neurologic/Psychiatric: Alert, Normal Mood/Affect, Motor Weakness (Generalized all extremities) Skin: Normal Color, Warm/Dry Lymphatic: No Adenopathy Results/Procedures Lab Patient resulted labs reviewed. FIM Transfers Therapy Code Descriptions/Definitions Functional [place] Measure: 0=Not Assessed/NA 4=Minimal Assistance 1=Total Assistance 5=Supervision or Setup 2=Maximal Assistance 6=Modified [place] 3=Moderate Assistance 7=Complete IndependenceSCALE: Activities may be completed with or without assistive devices. 6-Wrxxizuaoo-ibuyrcz completes the activity by him/herself with no assistance from a helper. 5-Set-up or Clean-up Assistance-helper sets up or cleans up; patient completes activity. [place] assists only prior to or following the activity. 4-Supervision or Touching Assistance-helper provides verbal cues and/or touching/steadying and/or contact guard assistance as patient completes activity. Assistance may be provided throughout the activity or intermittently. 3-Partial/Moderate Assistance-helper does LESS THAN HALF the effort. [place] lifts, holds or supports trunk or limbs, but provides less than half the effort. 2-Substantial/Maximal Assistance-helper does MORE THAN HALF the effort. [place] lifts or holds trunk or limbs and provides more than half the effort. 2-Hskkvvyuj-obcxtp does ALL the effort. Patient does none of the effort to complete the activity. Or, the assistance of 2 or more helpers is required for the patient to complete the activity. If activity was not attempted, code reason: 7-Patient Refused. 9-Not Applicable-not attempted and the patient did not perform the activity before the current illness, exacerbation or injury. 10-Not Attempted due to Environmental Limitations-(lack of equipment, weather restraints, etc.). 88-Not Attempted due to Medical Conditions or Safety Concerns. Roll Left to Right (QC): 6 Sit to Lying (QC): 6 Sit to Stand (QC): 4 Chair/Fve-oo-Ffghi Xfer(QC): 4 Car Transfer (QC): 3 Gait Training Does the Patient Walk?: Yes Distance: 75' x 4 Walk 10 feet (QC): 4 Walk 50 ft with 2 Turns(QC): 3 Walk 150 ft (QC): 88 Walking 10ft/uneven surface-QC: 4 Gait Persons Needed: 1 Gait Assistive Device: FWW Wheelchair Training Does the Pt Use a Wheelchair?: Yes Distance: 80 Wheel 50 ft with 2 turns (QC): 3 Wheel 150 ft (QC): 8 Type of Wheelchair: Manual Stair Training #of Steps: 12 1 Step (curb) (QC): 4 4 Steps (QC): 3 12 Steps (QC): 2 Balance Picking up an Object (QC): 4 ADL-Treatment Eating (QC): 4 (per clinical judgement) Shower/Bathe Self (QC): 3 Upper Body Dressing (QC): 3 Lower Body Dressing (QC): 3 On/Off Footwear (QC): 1 Toileting Hygiene (QC): 3 Toilet Transfer (QC): 3 Assessment/Plan Assessment and Plan Assess & Plan/Chief Complaint Assessment: 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
[2022-04-17 07:19] VITALS: BP 120/69
[2022-04-17] MEDS: DIGOXIN 0.125 MG (LANOXIN) TAB PO SCH (09:18)
[2022-04-17] MEDS: lisINopril 5 MG (PRINIVIL) TABLET PO SCH (09:18)
[2022-04-17] MEDS: OFLOXACIN 0.3% OPHTH SOLN 5 ML OP SCH ×4 (09:18→20:46)
[2022-04-17] MEDS: polyethylene glycoL POWDER 17 GM (MIRALAX) PACK PO SCH ×2 (09:50→21:47)
[2022-04-17] MEDS: DOCUSATE SODIUM 100 MG (COLACE) CAP PO SCH ×2 (09:50→21:46)
[2022-04-17] MEDS: SENNA W/DOCUSATE (SENOKOT S) TABLET PO SCH ×2 (09:50→21:47)
--- NOTE | 2022-04-17 10:33 | Occupational Ther Daily Note ---
OT Current Status-Daily Note Subjective Pt reports pain in RUE. Appearance Pt returned to supine, all needs within reach at OT departure. Mental Status/Objective Patient Orientation: Person, Confused ADL-Treatment Therapy Code Descriptions/Definitions Functional [place] Measure: 0=Not Assessed/NA 4=Minimal Assistance 1=Total Assistance 5=Supervision or Setup 2=Maximal Assistance 6=Modified [place] 3=Moderate Assistance 7=Complete IndependenceSCALE: Activities may be completed with or without assistive devices. 7-Xjpcuyehke-hqfpuav completes the activity by him/herself with no assistance from a helper. 5-Set-up or Clean-up Assistance-helper sets up or cleans up; patient completes activity. [place] assists only prior to or following the activity. 4-Supervision or Touching Assistance-helper provides verbal cues and/or touching/steadying and/or contact guard assistance as patient completes activity. Assistance may be provided throughout the activity or intermittently. 3-Partial/Moderate Assistance-helper does LESS THAN HALF the effort. [place] li fts, holds or supports trunk or limbs, but provides less than half the effort. 2-Substantial/Maximal Assistance-helper does MORE THAN HALF the effort. [place] lifts or holds trunk or limbs and provides more than half the effort. 9-Xbtccdzpc-haswoq does ALL the effort. Patient does none of the effort to complete the activity. Or, the assistance of 2 or more helpers is required for the patient to complete the activity. If activity was not attempted, code reason: 7-Patient Refused. 9-Not Applicable-not attempted and the patient did not perform the activity before the current illness, exacerbation or injury. 10-Not Attempted due to Environmental Limitations-(lack of equipment, weather restraints, etc.). 88-Not Attempted due to Medical Conditions or Safety Concerns. Oral Hygiene (QC): 3 Lower Body Dressing (QC): 2 On/Off Footwear: 1 Toileting Hygiene (QC): 1 Toilet Transfer (QC): 3 Pt sitting on commode at OT arrival. He complains of dizziness while seated. RN present/aware. Dependent for anuradha care/clothing management post toileting secondary to c/o dizziness and increased unsteadiness while standing. Pt returned to supine. BP taken. Supine: 127/68, HR 70 bpm. Sittin/61, HR 71 bpm (symptomatic), Standin/54, HR 50 bpm (symptomatic). RN notified. Thigh high debbie Hose donned. Pt again returned to supine and BP quickly recovers to 127/61, HR 71 bpm. Oral care completed at bed level, HOB raised. Significant time/cues for sequencing. Pt reports fatigue and often requests to return to napping. Intermittent min-mod a to lift UE's secondary to weakness/fatigue. Pt often c/o pain in RUE even with very little movement (held in guarded position throughout oral care). With palpation, pain does not stay in same place. Full range at times. At one point, pt winces in pain when light pressure applied to back (around kidneys). Unsure exact location of pain and cause. Pants donned at bed level. Max a to thread BLE's through pant leg. Pt able to bridge and assist in pulling over hips. Education OT Patient Education: Correct positioning, Modified ADL techniques, Purpose of tx/functional activities, Rehab process, Safety issues, Transfer techniques Teaching Recipient: Patient Teaching Methods: Demonstration, Discussion Response to Teaching: Reinforcement Needed OT Short Term Goals Short Term Goals Time Frame: Apr 25, 2022 Eatin Oral hygiene: 4 Toileting hygiene: 3 Shower/bathe self: 3 Upper body dressin Lower body dressin Putting on/taking off footwear: 4 OT Smalltalk Developer Goals Detention Goals Time Frame: May 04, 2022 Eating (QC): 5 Oral Hygiene (QC): 5 Toileting Hygiene (QC): 6 Shower/Bathe Self (QC): 5 Upper Body Dressing (QC): 6 Lower Body Dressing (QC): 6 On/Off Footwear (QC): 5 Additional Goals: 1-Demonstrate ADL Tasks, 2-Verbalize Understanding, 3- ImproveStrength/Jenifer 1=Demonstrate adherence to instructed precautions during ADL tasks. 2=Patient will verbalize/demonstrate understanding of assistive devices/modifications for ADL. 3=Patient will improve strength/tolerance for activity to enable patient to perform ADL's. OT Education/Plan Problem List/Assessment Assessment: Decreased Activ Tolerance, Decreased Safety Aware, Decreased UE Strength, Impaired Cognition, Impaired Coordination, Impaired Funct Balance, Impaired Self-Care Skills Discharge Recommendations Plan/Recommendations: Continue POC Therapy Discharge Recommendati: Post Acute OT Treatment Plan/Plan of Care Treatment,Training & Education: Yes Patient would benefit from OT for education, treatment and training to promote independence in ADL's, mobility, safety and/or upper extremity function for ADL's. Plan of Care: ADL Retraining, Caregiver Training, Cognitive Retraining, Concurrent Therapy, Functional Mobility, Group Exercise/Act as Ind, UE Funct Exercise/Act, UE Neuromus Re-Ed/Coord, Visual/Perceptual Retrain, W/C Management Training Treatment Duration: May 04, 2022 Frequency: At least 5 of 7 days/Wk (IRF) Estimated Hrs Per Day: 1.5 hours per day (75-90 minutes) Agreement: Yes Rehab Potential: Guarded Time/GCodes Start Time: 09:30 Stop Time: 10:30 Total Time Billed (hr/min): 60 Billed Treatment Time 1 visit ADL x3 (45 min) MAN (15 min) Lissett Worley OT Apr 17, 2022 10:33
--- NOTE | 2022-04-17 11:32 | Physical Therapy Daily Note ---
PT Daily Note-Current Subjective Pt requests not to wear him completely out as it takes him a long time to recover. Transfers SCALE: Activities may be completed with or without assistive devices. 7-Yrvtahsutp-liqqzjd completes the activity by him/herself with no assistance from a helper. 5-Set-up or Clean-up Assistance-helper sets up or cleans up; patient completes activity. [place] assists only prior to or following the activity. 4-Supervision or Touching Assistance-helper provides verbal cues and/or touching/steadying and/or contact guard assistance as patient completes activity. Assistance may be provided throughout the activity or intermittently. 3-Partial/Moderate Assistance-helper does LESS THAN HALF the effort. [place] lifts, holds or supports trunk or limbs, but provides less than half the effort. 2-Substantial/Maximal Assistance-helper does MORE THAN HALF the effort. [place] lifts or holds trunk or limbs and provides more than half the effort. 0-Skxqndglq-gsirip does ALL the effort. Patient does none of the effort to complete the activity. Or, the assistance of 2 or more helpers is required for the patient to complete the activity. If activity was not attempted, code reason: 7-Patient Refused. 9-Not Applicable-not attempted and the patient did not perform the activity before the current illness, exacerbation or injury. 10-Not Attempted due to Environmental Limitations-(lack of equipment, weather restraints, etc.). 88-Not Attempted due to Medical Conditions or Safety Concerns. Weight Bearing Right Lower Extremity: Right Full Weight Bearing Left Lower Extremity: Left Full Weight Bearing Gait Training Gait Assistive Device: FWW Ambulate 75ft, 25ft, 50ft, 25ft, 25ft, 30ft, 30ft all with FWW and Min A for balance. Pt knees very unsteady when fatigued and needed to sit quickly once fatigued. Stair Training 4 Steps (QC): 3 up and down 4 steps with Moderate assist due to LE fatigue Exercises Standin way Ex=Flex, Abd, Ext Standing Reps: 10 NuStep Minutes: 11 NuStep Workload: 5 Assessment Current Status: Fair Progress Pt at risk for falls when fatigued. He had sudden onset of LE fatigue with insufficient UE strength to maintain standing upright. Pt will benefit from continued PT to work on strength, functional mobility, and safety. PT Nursing Home Goals Mechanical Design Engineer Facilities Goals PT Nursing Home Goals Time Frame: May 12, 2022 Roll Left & Right (QC): 6 Sit to Lying (QC): 6 Lying-Sitting on Side/Bed(QC): 6 Sit to Stand (QC): 6 Chair/Qhw-uw-Vcxtg Xfer(QC): 6 Toilet Transfer (QC): 6 Car Transfer (QC): 6 Does the Patient Walk: Yes Walk 10 feet (QC): 6 Walk 50ft with 2 Turns (QC): 6 Walk 150 ft (QC): 4 Walking 10ft on Uneven Surface: 6 1 Step (curb) (QC): 6 4 Steps (QC): 4 12 Steps (QC): 4 Picking up an Object (QC): 6 Does the Pt use WC or Scooter?: No Wheel 50 feet with 2 turns (QC: 88 Wheel 150 feet: 88 PT Plan Treatment/Plan Treatment Plan: Continue Plan of Care Treatment Plan: Bed Mobility, Education, Functional Activity Jenifer, Functional Strength, Group Therapy, Gait, Safety, Therapeutic Exercise, Transfers Treatment Duration: May 12, 2022 Frequency: At least 5 of 7 days/Wk (IRF) Estimated Hrs Per Day: 1.5 hours per day Patient and/or Family Agrees t: Yes Time/GCodes Time In: 1030 Time Out: 1130 Total Billed Treatment Time: 60 Total Billed Treatment visit, gait 45 min, ex 15 min SHAVONNE ORONA PT Apr 17, 2022 11:32
--- NOTE | 2022-04-17 14:31 | Therapy Group Daily Note ---
Therapy Daily Group Note Patient Education Topic Exercises Exercises LE Seated Exercise, Balance, ROM, Stretching, Gross Motor, Fine Motor, UE Exercise Session Ratio (pt:therapist): 3:1 Goal of Session: Education on ARU Expectations, Memory Strategies, UE/LE Strengthing Goal Met for this Session: Yes Pt Benefit of Group: Increased Functional Safety, Increased Functional Strength, Improved Cognition, Recognition of Peers, Socialization Out of bed activity including ambulation, transfers, exercise, social interaction Other/Notes Bed mobility supine to sit Min Assist. Ambulate 75ft with FWW and Min A to group, W/C self propel group to patient room. Worked on seated dynamic wt shift and balance during volleyball activity. UE reaching, twisting, and core engagement during baloon volleyball game. UE seated exercises for ROM and strength. Seated exercise including: glute sets, LAQ, ankle pumps, trunk rotations, and cervical AROM with end range stretch. Pt encouraged and assisted with word finding during therapist guided group discussion. Start Time: 13:00 Stop Time: 14:00 Total Billed Treatment Time: 60 Total Billed Treatment visit Therapeutic Group 60 minutes SHAVONNE ORONA PT Apr 17, 2022 14:31
[2022-04-17] MEDS: warFARin 5 MG (COUMADIN) TAB PO SCH (17:58)
[2022-04-17 19:52] VITALS: BP 128/74
[2022-04-17] MEDS: ASPIRIN 81 MG CHEW (CHILDREN'S ASA) PO SCH (20:46)
[2022-04-18 06:05] LABS: INR 2.1 (0.8-1.4); PROTHROMBIN TIME PATIENT 24.1 SEC (12.2-14.7)
--- NOTE | 2022-04-18 06:56 | PM&R Progress Note ---
Subjective HPI/CC On Admission Date Seen by Provider: Apr 18, 2022 Time Seen by Provider: 08:30 Subjective/Events-last exam 04/18/2022: No major events last night No pain Moving around well 04/17/2022: No major issues No pain reported Checked meds and labs 04/16/2022: Patient seems to be doing well Poor memory recall No pain reported 04/15/2022: Doing well Had orthostasis yesterday and Dr Garcia adjusted meds Patient denies pain No falls 04/14/2022: Pt is doing pretty well He is a bit confused Bed alarm on for fall risk Checked meds and labs No falls Review of Systems General: Fatigue, Malaise Objective Exam Vital Signs Vital Signs Date Time Temp Pulse Resp B/P (MAP) Pulse Ox O2 Delivery O2 Flow Rate FiO2 04/18/22 08:30 Room Air 04/18/22 07:42 36.8 74 16 134/72 (92) 95 Capillary Refill : General Appearance: No Apparent Distress, WD/WN, Chronically ill, Thin HEENT: PERRL/EOMI, Normal ENT Inspection, Pharynx Normal, Moist Mucous Membranes Neck: Non Tender, Supple Respiratory: Chest Non Tender, Lungs Clear, Normal Breath Sounds, No Accessory Muscle Use, No Respiratory Distress Cardiovascular: Regular Rate, Rhythm, No Edema, No Gallop, No JVD Gastrointestinal: Normal Bowel Sounds, No Organomegaly, No Pulsatile Mass, Non Tender, Soft Rectal: Deferred Extremity: No Pedal Edema, Calf Tenderness (mild) Neurologic/Psychiatric: Alert, Normal Mood/Affect, Motor Weakness (Generalized all extremities) Skin: Normal Color, Warm/Dry Lymphatic: No Adenopathy Results/Procedures Lab Patient resulted labs reviewed. FIM Transfers Therapy Code Descriptions/Definitions Functional [place] Measure: 0=Not Assessed/NA 4=Minimal Assistance 1=Total Assistance 5=Supervision or Setup 2=Maximal Assistance 6=Modified [place] 3=Moderate Assistance 7=Complete IndependenceSCALE: Activities may be completed with or without assistive devices. 4-Hxjrrtwgmg-wbeclik completes the activity by him/herself with no assistance from a helper. 5-Set-up or Clean-up Assistance-helper sets up or cleans up; patient completes activity. [place] assists only prior to or following the activity. 4-Supervision or Touching Assistance-helper provides verbal cues and/or touching/steadying and/or contact guard assistance as patient completes activity. Assistance may be provided throughout the activity or intermittently. 3-Partial/Moderate Assistance-helper does LESS THAN HALF the effort. [place] lifts, holds or supports trunk or limbs, but provides less than half the effort. 2-Substantial/Maximal Assistance-helper does MORE THAN HALF the effort. [place] lifts or holds trunk or limbs and provides more than half the effort. 6-Tkemlfgbd-sodcfk does ALL the effort. Patient does none of the effort to complete the activity. Or, the assistance of 2 or more helpers is required for the patient to complete the activity. If activity was not attempted, code reason: 7-Patient Refused. 9-Not Applicable-not attempted and the patient did not perform the activity before the current illness, exacerbation or injury. 10-Not Attempted due to Environmental Limitations-(lack of equipment, weather restraints, etc.). 88-Not Attempted due to Medical Conditions or Safety Concerns. Roll Left to Right (QC): 6 Sit to Lying (QC): 6 Sit to Stand (QC): 4 Chair/Mut-hm-Rjicj Xfer(QC): 4 Car Transfer (QC): 3 Gait Training Does the Patient Walk?: Yes Distance: 75' x 4 Walk 10 feet (QC): 4 Walk 50 ft with 2 Turns(QC): 3 Walk 150 ft (QC): 88 Walking 10ft/uneven surface-QC: 4 Gait Persons Needed: 1 Gait Assistive Device: FWW Wheelchair Training Does the Pt Use a Wheelchair?: Yes Distance: 80 Wheel 50 ft with 2 turns (QC): 3 Wheel 150 ft (QC): 8 Type of Wheelchair: Manual Stair Training #of Steps: 12 1 Step (curb) (QC): 4 4 Steps (QC): 3 12 Steps (QC): 2 Balance Picking up an Object (QC): 4 ADL-Treatment Eating (QC): 4 (per clinical judgement) Oral Hygiene (QC): 3 Shower/Bathe Self (QC): 3 Upper Body Dressing (QC): 3 Lower Body Dressing (QC): 2 On/Off Footwear (QC): 1 Toileting Hygiene (QC): 1 Toilet Transfer (QC): 3 Assessment/Plan Assessment and Plan Assess & Plan/Chief Complaint Assessment: 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
[2022-04-18 07:42] VITALS: BP 134/72
[2022-04-18] MEDS: SENNA W/DOCUSATE (SENOKOT S) TABLET PO SCH ×2 (08:30→20:37)
[2022-04-18] MEDS: lisINopril 5 MG (PRINIVIL) TABLET PO SCH (08:30)
[2022-04-18] MEDS: DIGOXIN 0.125 MG (LANOXIN) TAB PO SCH (08:30)
[2022-04-18] MEDS: OFLOXACIN 0.3% OPHTH SOLN 5 ML OP SCH ×4 (08:31→20:22)
[2022-04-18] MEDS: DOCUSATE SODIUM 100 MG (COLACE) CAP PO SCH ×2 (08:31→20:37)
[2022-04-18] MEDS: polyethylene glycoL POWDER 17 GM (MIRALAX) PACK PO SCH ×2 (08:51→20:37)
--- NOTE | 2022-04-18 10:00 | Physical Therapy Daily Note ---
PT Daily Note-Current Subjective Patient in bed pre tx, agrees to PT, has unrated pain in right shoulder. Will be co-treating with OT due to poor patient mobility, strength, endurance, severe debility, coordinate UE and LE during activity, safety and reduce risk of falls. Appearance Patient in therapy gym with OT, will continue for a bit with them. Mental Status Patient Orientation: Person, Place, Situation Transfers SCALE: Activities may be completed with or without assistive devices. 0-Xdzjcxugdj-alojhag completes the activity by him/herself with no assistance from a helper. 5-Set-up or Clean-up Assistance-helper sets up or cleans up; patient completes activity. [place] assists only prior to or following the activity. 4-Supervision or Touching Assistance-helper provides verbal cues and/or touching/steadying and/or contact guard assistance as patient completes activity. Assistance may be provided throughout the activity or intermittently. 3-Partial/Moderate Assistance-helper does LESS THAN HALF the effort. [place] lifts, holds or supports trunk or limbs, but provides less than half the effort. 2-Substantial/Maximal Assistance-helper does MORE THAN HALF the effort. [place] lifts or holds trunk or limbs and provides more than half the effort. 5-Cblyfogze-qmlval does ALL the effort. Patient does none of the effort to complete the activity. Or, the assistance of 2 or more helpers is required for the patient to complete the activity. If activity was not attempted, code reason: 7-Patient Refused. 9-Not Applicable-not attempted and the patient did not perform the activity before the current illness, exacerbation or injury. 10-Not Attempted due to Environmental Limitations-(lack of equipment, weather restraints, etc.). 88-Not Attempted due to Medical Conditions or Safety Concerns. Roll Left & Right (QC): 6 Lying to Sitting/Side of Bed(Q: 4 Sit to Stand (QC): 4 Chair/Yne-ka-Ewyug Xfer(QC): 4 Patient's BP laying down is 159/70, patient sits to the side of the bed with SBA and BP is 142/74, patient is partially dressed lower half, stands to pull up p ants and BP is 99/57, sits in WC and after a while BP is 143/66. Patient goes the the restroom to have a BM, CGA for toilet transfer, he is able to push/pull pants without assist but with cues, then patient washes hands in sink. Weight Bearing Right Lower Extremity: Right Full Weight Bearing Left Lower Extremity: Left Full Weight Bearing Wheelchair Training Does the Pt Use a Wheelchair?: Yes Wheel 50 ft with 2 turns (QC): 4 Type of Wheelchair: Manual 120', SBA, cues for obstacles and turning Exercises Patient stood in the parallel bars x3 for about 1 min each time until he felt dizzy/weak and then sits back down, to work on BP accomodation. Treatments PT worked on bed mobility and transfers, standing and positioning during dressing and ADL's, toileting, standing in parallel bars, OT worked on dressing, toileting, ADL's, UE positioning and safety during activity. Assessment Current Status: Poor Progress Patient cannot stand for too long before blood pressure drops and he becomes dizzy and fatigued. Patient needed a lot of rest breaks. PT Sleeve Maker Goals Correction Goals PT Sleeve Maker Goals Time Frame: May 12, 2022 Roll Left & Right (QC): 6 Sit to Lying (QC): 6 Lying-Sitting on Side/Bed(QC): 6 Sit to Stand (QC): 6 Chair/Dlr-ib-Ktwdr Xfer(QC): 6 Toilet Transfer (QC): 6 Car Transfer (QC): 6 Does the Patient Walk: Yes Walk 10 feet (QC): 6 Walk 50ft with 2 Turns (QC): 6 Walk 150 ft (QC): 4 Walking 10ft on Uneven Surface: 6 1 Step (curb) (QC): 6 4 Steps (QC): 4 12 Steps (QC): 4 Picking up an Object (QC): 6 Does the Pt use WC or Scooter?: No Wheel 50 feet with 2 turns (QC: 88 Wheel 150 feet: 88 PT Plan Problem List Problem List: Activity Tolerance, Functional Strength, Safety, Balance, Gait, Transfer, Bed Mobility, ROM Treatment/Plan Treatment Plan: Continue Plan of Care Treatment Plan: Bed Mobility, Education, Functional Activity Jenifer, Functional Strength, Group Therapy, Gait, Safety, Therapeutic Exercise, Transfers Treatment Duration: May 12, 2022 Frequency: At least 5 of 7 days/Wk (IRF) Estimated Hrs Per Day: 1.5 hours per day Patient and/or Family Agrees t: Yes Safety Risks/Education Patient Education: Transfer Techniques, Correct Positioning, W/C Management, Safety Issues Teaching Recipient: Patient Teaching Methods: Demonstration, Discussion Response to Teaching: Reinforcement Needed Time/GCodes Time In: 0900 Time Out: 1000 Total Billed Treatment Time: 60 Total Billed Treatment 1 visit FA 60' co-treated for 60' DIAMOND JAIN PT Apr 18, 2022 10:00
--- NOTE | 2022-04-18 10:13 | Occupational Ther Daily Note ---
OT Current Status-Daily Note Subjective Pt reports pain in RUE, but states it is chronic. No c/o pain during functional activities this date. Co-treat with PT ([id number]) secondary to poor activity tolerance, high fall ris k, poor balance, variable BP's, and need of 2 skilled clinicians to progress indep and safety with adls and functional mobility. Appearance Pt returned to supine in bed, all needs within reach at OT departure. Mental Status/Objective Patient Orientation: Person, Confused ADL-Treatment Therapy Code Descriptions/Definitions Functional Wilson Measure: 0=Not Assessed/NA 4=Minimal Assistance 1=Total Assistance 5=Supervision or Setup 2=Maximal Assistance 6=Modified Wilson 3=Moderate Assistance 7=Complete IndependenceSCALE: Activities may be completed with or without assistive devices. 8-Gtgcpqkjhe-ptvgqfq completes the activity by him/herself with no assistance from a helper. 5-Set-up or Clean-up Assistance-helper sets up or cleans up; patient completes activity. [place] assists only prior to or following the activity. 4-Supervision or Touching Assistance-helper provides verbal cues and/or touching/steadying and/or contact guard assistance as patient completes activity. Assistance may be provided throughout the activity or intermittently. 3-Partial/Moderate Assistance-helper does LESS THAN HALF the effort. [place] lifts, holds or supports trunk or limbs, but provides less than half the effort. 2-Substantial/Maximal Assistance-helper does MORE THAN HALF the effort. [place] lifts or holds trunk or limbs and provides more than half the effort. 6-Iiuvleatn-hsmfnd does ALL the effort. Patient does none of the effort to complete the activity. Or, the assistance of 2 or more helpers is required for the patient to complete the activity. If activity was not attempted, code reason: 7-Patient Refused. 9-Not Applicable-not attempted and the patient did not perform the activity before the current illness, exacerbation or injury. 10-Not Attempted due to Environmental Limitations-(lack of equipment, weather restraints, etc.). 88-Not Attempted due to Medical Conditions or Safety Concerns. Lower Body Dressing (QC): 3 On/Off Footwear: 2 (dependent to don debbie hose.) Toileting Hygiene (QC): 3 (Assistance for thoroughness and min a for balance during clothing management) Toilet Transfer (QC): 3 BP taken: Supine: 159/70, pulse-69 bpm Sittin/74, pulse-86 bpm Standin/57, pulse-51 bpm (symptomatic) After ~2 minutes of sitting EOB, BP taken again in sittin/66, pulse 68 (reports improvement in symptoms). LB dressing completed sitting EOB. Extra time/effort observed when threading LLE, but no physical assistance required. Cues for modified techniques after multiple failed attempts when threading RLE. Assist still needed to maintain leg onto edge of bed as pt threaded foot into pant leg. Min a to stand and maintain balance as he performed clothing management. Pt only able to tolerate standing for ~30-45 seconds at a time before becoming very shaky/unsteady and needing to sit. Pt verbalizes that he needs to shave but then declines attempt to complete due to c/o fatigue. Other Treatment Pt propelled w/c throughout unit, poor safety and object avoidance notable. Right worse than left. Pt denies double vision this date. Post w/c mobility BP taken again: 113/74, pulse-56 bpm. Pt completed multiple sit<>stands, education on slow positional changes. Poor carry over with cues. After first sit<>stand BP: 109/54, pulse-57 bpm. Pt unable to tolerate >45 seconds of standing each time. Education OT Patient Education: Correct positioning, Energy conservation, Modified ADL techniques, Progress toward Goal/Update tx plan, Purpose of tx/functional activities, Rehab process, Safety issues, Transfer techniques, W/C management Teaching Recipient: Patient Teaching Methods: Demonstration, Discussion Response to Teaching: Verbalize Understanding, Return Demonstration, Reinforcement Needed OT Short Term Goals Short Term Goals Time Frame: Apr 25, 2022 Eatin Oral hygiene: 4 Toileting hygiene: 3 Shower/bathe self: 3 Upper body dressin Lower body dressin Putting on/taking off footwear: 4 OT Plasma Table Operator Goals Plasma Table Operator Goals Time Frame: May 04, 2022 Eating (QC): 5 Oral Hygiene (QC): 5 Toileting Hygiene (QC): 6 Shower/Bathe Self (QC): 5 Upper Body Dressing (QC): 6 Lower Body Dressing (QC): 6 On/Off Footwear (QC): 5 Additional Goals: 1-Demonstrate ADL Tasks, 2-Verbalize Understanding, 3- ImproveStrength/Jenifer 1=Demonstrate adherence to instructed precautions during ADL tasks. 2=Patient will verbalize/demonstrate understanding of assistive devices/modifications for ADL. 3=Patient will improve strength/tolerance for activity to enable patient to perform ADL's. OT Education/Plan Problem List/Assessment Assessment: Decreased Activ Tolerance, Decreased Safety Aware, Decreased UE Strength, Impaired Cognition, Impaired Coordination, Impaired Funct Balance, Impaired Self-Care Skills, Restricted Funct UE ROM Discharge Recommendations Plan/Recommendations: Continue POC Therapy Discharge Recommendati: Post Acute OT Treatment Plan/Plan of Care Treatment,Training & Education: Yes Patient would benefit from OT for education, treatment and training to promote independence in ADL's, mobility, safety and/or upper extremity function for ADL's. Plan of Care: ADL Retraining, Caregiver Training, Cognitive Retraining, Co ncurrent Therapy, Functional Mobility, Group Exercise/Act as Ind, UE Funct Exercise/Act, UE Neuromus Re-Ed/Coord, Visual/Perceptual Retrain, W/C Management Training Treatment Duration: May 04, 2022 Frequency: At least 5 of 7 days/Wk (IRF) Estimated Hrs Per Day: 1.5 hours per day (75-90 minutes) Agreement: Yes Rehab Potential: Guarded Time/GCodes Start Time: 09:00 Stop Time: 10:15 Total Time Billed (hr/min): 75 Billed Treatment Time 1 visit ADL x2 (35 min) FA x3 (40 min) Lissett Worley OT Apr 18, 2022 10:13
[2022-04-18] MEDS: DICLOFENAC 1% GEL 100 GM (VOLTAREN) TUBE TOP SCH ×3 (10:21→20:22)
--- NOTE | 2022-04-18 11:05 | ST Cognitive Linguistic Eval ---
Speech Evaluation-General Medical Diagnosis CVA Onset Date: Apr 08, 2022 Therapy Diagnosis Therapy Diagnosis: Mild Cognitive Linguistic Impairment Precautions Precautions: Fall, Pressure Ulcer, Aspiration Precautions/Isolations: Aspiration, Fall Prevention, Standard Precautions, Pressure Ulcer Referral Referring Physician: Dr. Dunlap Reason for Referral: Evaluation/Treatment Medical History Pertinent Medical History: Atrial Fib, CVA, Heart Failure, HTN Current History The patient is a 81 year old male with history of stroke (three), HTN, and CAD, who presents to ARU following a stroke. Reviewed History: Yes Social History Current Living Status: Caregiver Speech PLF-Current Status Prior Level of Function The patient denied current or prior difficulties and concerns with his speech, language, or cognition. The patient stated "It feels like I have a square in the corner of my right eye," as the patient describes his vision to the clinician. Per patient, the vision difficulties were present prior to his stroke. The patient states his vision is more clear when he closes his right eye. Subjective The patient was lying in bed, awake and alert upon entrance to his room by the clinician. The patient greeted the clinician appropriately and was agreeable to participation in the cognitive linguistic evaluation. Language Eval: Auditory Comprehends Simple Yes/No Ques: Functional Indent/Objects Multiple Lopez: Functional Follows 1-Step Commands: Functional Follows General Conversations: Functional Language Eval: Verbal Language Completes Spontaneous Greeting: Functional Produces Auto, Serial Info: Functional Imitates Simple Words/Phrases: Functional Word Finding: Mild Requests Basic Needs: Functional States Basic Personal Info: Functional Language Evaluation: Reading Follows Simple Written Direct: Functional (Please see information regarding vision in prior medical history.) Language Evaluation: Writing Writes to Simple Dictation: Functional Cognitive Patient Orientation The patient was independently oriented to self, location, month, day of the week, and year. Objective Cognitive Domain Attention: Mild Memory: Mild Problem Solving: Mild Visuospatial Skills: Mild (Mild to moderate.) Composite Severity Rating: Mild Clock Drawing Severity Rating: WNL Objective Formal/Standardized Tests [facility] Mental Status Exam (UMS) Results The patient demonstrated a result of +19/30 on the SLUMS correlating to a score of "dementia." Oral Motor/Speech Production The patient does not demonstrate dysarthria or apraxia of speech. The patient is 100% intelligible in known and unknown contexts. Impression The patient demonstrated mild cognitive linguistic deficits in the areas of generative naming, attention, memory, and problem solving. Speech Patient Assess Expression of Ideas/Wants: Exhibits (3) Understanding Verbal Content: Usually Understands (3) Brief Interview-Mental Status: Yes Repetition of Three Words: Three (3) Temporal Orientation: Year: Correct (3) Temporal Orientation: Month: Accurate within 5 days(2) Temporal Orientation: Day: Correct (1) Recall : Wear to say "Sock": Yes, no cue required (2) Recall : Color: Yes, no cue required (2) Recall : Bed: Yes,after cueing (1) Memory/Recall Ability: Current season, Location of own room, Staff names and faces, That he or she is in a hsp/hsp unit Speech Short Term Goals Short Term Goals Short Term Goals 1. The patient will follow safe swallowing strategies with 90% accuracy and mild clinician verbal cueing and direct modeling. 2. The patient will demonstrate 75% accuracy with memory exercises with mild clinician verbal cueing. Time Frame-STG: Five Days. Speech Sales And Marketing Manager Goals Sales And Marketing Manager Goals 1. The patient will tolerate the least restrictive diet consistency without overt s/s of suspected aspiration. 2. The patient will demonstrate improved cognitive linguistic skills for safe discharge to the least restrictive environment. Time Frame: Ten Days. Speech-Plan Treatment Plan Speech Therapy Treatment Plan: Continue Plan of Care Treatment Duration: Apr 14, 2022 Frequency: Modified Program (IRF) Estimated Hrs Per Day: .5 hour per day Rehab Potential: Guarded Safety Risks/Education Teaching Recipient: Patient Teaching Methods: Discussion Response to Teaching: Verbalize Understanding Education Topics Provided: Results, Recommendations, Plan of Care Time Speech Therapy Time In: 10:45 Speech Therapy Time Out: 11:05 Total Billed Time: 20 Billed Treatment Time 1, [place] [facility] Apr 18, 2022 11:04
--- NOTE | 2022-04-18 11:05 | Speech Therapy Daily Note ---
Speech Daily Progress Note Subjective Date Seen by Provider: Apr 18, 2022 Time Seen by Provider: 11:05 The patient was lying in bed, awake and alert upon entrance to his room by the clinician. The patient greeted the clinician appropriately and was agreeable to participation in the dysphagia treatment session. Objective The patient reported tolerance of his current diet consistency of dysphagia three with nectar-thick liquids. The patient and the clinician reviewed safe swallowing strategies and recommendations from the previous treatment session. On this date, pharyngeal and base of tongue strengthening exercises were introduced (effortful swallow and Melissa). The patient completed each exercise with high accuracy following direct clinician modeling. The patient was encouraged to complete each exercise three times daily with ten repetitions of each performed. Assessment Assessment Current Status: Fair Progress Treatment Plan Continue Plan of Care Speech Short Term Goals Short Term Goals Short Term Goals 1. The patient will follow safe swallowing strategies with 90% accuracy and mild clinician verbal cueing and direct modeling. Time Frame-STG: Five Days. Speech Hand Stitcher Goals Fpc Goals 1. The patient will tolerate the least restrictive diet consistency without ov ert s/s of suspected aspiration. Time Frame: One Week. Speech-Plan Treatment Plan Speech Therapy Treatment Plan: Continue Plan of Care Treatment Duration: Apr 14, 2022 Frequency: Modified Program (IRF) Estimated Hrs Per Day: Other Rehab Potential: Guarded Safety Risks/Education Teaching Recipient: Patient Teaching Methods: Demonstration, Discussion Response to Teaching: Verbalize Understanding, Return Demonstration Education Topics Provided: Dysphagia Exercises Time Speech Therapy Time In: 11:05 Speech Therapy Time Out: 11:15 Total Billed Time: 10 Billed Treatment Time 1, MARCIE SANDHU Apr 18, 2022 11:05
--- NOTE | 2022-04-18 11:44 | Physical Therapy Daily Note ---
PT Daily Note-Current Subjective Patient in bed pre tx, agrees to PT, has no complaints of pain. Appearance Patient in bed post tx with nurse call, phone, tray, all needs met. Mental Status Patient Orientation: Person, Place, Situation Transfers SCALE: Activities may be completed with or without assistive devices. 2-Izahzdwjni-vtfetvc completes the activity by him/herself with no assistance from a helper. 5-Set-up or Clean-up Assistance-helper sets up or cleans up; patient completes activity. [place] assists only prior to or following the activity. 4-Supervision or Touching Assistance-helper provides verbal cues and/or touching/steadying and/or contact guard assistance as patient completes activity. Assistance may be provided throughout the activity or intermittently. 3-Partial/Moderate Assistance-helper does LESS THAN HALF the effort. [place] lifts, holds or supports trunk or limbs, but provides less than half the effort. 2-Substantial/Maximal Assistance-helper does MORE THAN HALF the effort. [place] lifts or holds trunk or limbs and provides more than half the effort. 2-Idqtzylpc-hlpklq does ALL the effort. Patient does none of the effort to complete the activity. Or, the assistance of 2 or more helpers is required for the patient to complete the activity. If activity was not attempted, code reason: 7-Patient Refused. 9-Not Applicable-not attempted and the patient did not perform the activity before the current illness, exacerbation or injury. 10-Not Attempted due to Environmental Limitations-(lack of equipment, weather restraints, etc.). 88-Not Attempted due to Medical Conditions or Safety Concerns. Weight Bearing Right Lower Extremity: Right Full Weight Bearing Left Lower Extremity: Left Full Weight Bearing Exercises Supine Ex: Ankle pumps, Quad Set, Glut sets, Heel Slides, Short Arc Quads, Straight leg raise, Hip abd/add Supine Reps: 20 Treatments LE strengthening Assessment Current Status: Fair Progress all AR[facility] PT Youth Minister Goals Youth Minister Goals PT Shelter Goals Time Frame: May 12, 2022 Roll Left & Right (QC): 6 Sit to Lying (QC): 6 Lying-Sitting on Side/Bed(QC): 6 Sit to Stand (QC): 6 Chair/Xkl-bb-Dymbq Xfer(QC): 6 Toilet Transfer (QC): 6 Car Transfer (QC): 6 Does the Patient Walk: Yes Walk 10 feet (QC): 6 Walk 50ft with 2 Turns (QC): 6 Walk 150 ft (QC): 4 Walking 10ft on Uneven Surface: 6 1 Step (curb) (QC): 6 4 Steps (QC): 4 12 Steps (QC): 4 Picking up an Object (QC): 6 Does the Pt use WC or Scooter?: No Wheel 50 feet with 2 turns (QC: 88 Wheel 150 feet: 88 PT Plan Problem List Problem List: Activity Tolerance, Functional Strength, Safety, Balance, Gait, Transfer, Bed Mobility, ROM Treatment/Plan Treatment Plan: Continue Plan of Care Treatment Plan: Bed Mobility, Education, Functional Activity Jenifer, Functional Strength, Group Therapy, Gait, Safety, Therapeutic Exercise, Transfers Treatment Duration: May 12, 2022 Frequency: At least 5 of 7 days/Wk (IRF) Estimated Hrs Per Day: 1.5 hours per day Patient and/or Family Agrees t: Yes Safety Risks/Education Patient Education: Correct Positioning, Safety Issues Teaching Recipient: Patient Teaching Methods: Demonstration, Discussion Response to Teaching: Reinforcement Needed Time/GCodes Time In: 1130 Time Out: 1145 Total Billed Treatment Time: 15 Total Billed Treatment 1 visit EX DIAMOND MEADOWS PT Apr 18, 2022 11:44
[2022-04-18] MEDS: warFARin 5 MG (COUMADIN) TAB PO SCH (17:51)
[2022-04-18] MEDS: HYDROcodone/APAP 7.5 MG/325 MG (LORTAB, LORCET PLUS) TABLET PO PRN (17:51)
[2022-04-18 19:53] VITALS: BP 135/80
[2022-04-18] MEDS: ASPIRIN 81 MG CHEW (CHILDREN'S ASA) PO SCH (20:22)
[2022-04-18] MEDS: MELATONIN 3 MG TABLET PO PRN (22:36)
[2022-04-18] MEDS: ALPRAZolam 0.25 MG (XANAX) TAB PO PRN (23:46)
[2022-04-19 06:07] LABS: INR 2.3 (0.8-1.4); PROTHROMBIN TIME PATIENT 25.5 SEC (12.2-14.7)
--- NOTE | 2022-04-19 06:44 | PM&R Progress Note ---
Subjective HPI/CC On Admission Date Seen by Provider: Apr 19, 2022 Time Seen by Provider: 08:45 Subjective/Events-last exam 04/19/2022: Pt is doing pretty well Had some insomnia last night BP is labile Orthostatic hypotension limits the medication Updated Dr. Garcia, who is managing the INR 04/18/2022: No major events last night No pain Moving around well 04/17/2022: No major issues No pain reported Checked meds and labs 04/16/2022: Patient seems to be doing well Poor memory recall No pain reported 04/15/2022: Doing well Had orthostasis yesterday and Dr Garcia adjusted meds Patient denies pain No falls 04/14/2022: Pt is doing pretty well He is a bit confused Bed alarm on for fall risk Checked meds and labs No falls Review of Systems General: Fatigue, Malaise Neurological: Confusion Objective Exam Vital Signs Vital Signs Date Time Temp Pulse Resp B/P (MAP) Pulse Ox O2 Delivery O2 Flow Rate FiO2 04/19/22 19:58 36.9 65 18 144/87 (106) 97 Room Air Capillary Refill : General Appearance: No Apparent Distress, WD/WN, Chronically ill, Thin HEENT: PERRL/EOMI, Normal ENT Inspection, Pharynx Normal, Moist Mucous Membranes Neck: Non Tender, Supple Respiratory: Chest Non Tender, Lungs Clear, Normal Breath Sounds, No Accessory Muscle Use, No Respiratory Distress Cardiovascular: Regular Rate, Rhythm, No Edema, No Gallop, No JVD Gastrointestinal: Normal Bowel Sounds, No Organomegaly, No Pulsatile Mass, Non Tender, Soft Rectal: Deferred Extremity: No Pedal Edema, Calf Tenderness (mild) Neurologic/Psychiatric: Alert, Normal Mood/Affect, Motor Weakness (Generalized all extremities) Skin: Normal Color, Warm/Dry Lymphatic: No Adenopathy Results/Procedures Lab Patient resulted labs reviewed. FIM Transfers Therapy Code Descriptions/Definitions Functional [place] Measure: 0=Not Assessed/NA 4=Minimal Assistance 1=Total Assistance 5=Supervision or Setup 2=Maximal Assistance 6=Modified [place] 3=Moderate Assistance 7=Complete IndependenceSCALE: Activities may be completed with or without assistive devices. 2-Ixxmnovukd-xrwcdbz completes the activity by him/herself with no assistance from a helper. 5-Set-up or Clean-up Assistance-helper sets up or cleans up; patient completes activity. [place] assists only prior to or following the activity. 4-Supervision or Touching Assistance-helper provides verbal cues and/or touching/steadying and/or contact guard assistance as patient completes activity. Assistance may be provided throughout the activity or intermittently. 3-Partial/Moderate Assistance-helper does LESS THAN HALF the effort. [place] lifts, holds or supports trunk or limbs, but provides less than half the effort. 2-Substantial/Maximal Assistance-helper does MORE THAN HALF the effort. [place] lifts or holds trunk or limbs and provides more than half the effort. 0-Fpuedjjpd-rsorky does ALL the effort. Patient does none of the effort to complete the activity. Or, the assistance of 2 or more helpers is required for the patient to complete the activity. If activity was not attempted, code reason: 7-Patient Refused. 9-Not Applicable-not attempted and the patient did not perform the activity before the current illness, exacerbation or injury. 10-Not Attempted due to Environmental Limitations-(lack of equipment, weather restraints, etc.). 88-Not Attempted due to Medical Conditions or Safety Concerns. Roll Left to Right (QC): 6 Sit to Lying (QC): 6 Sit to Stand (QC): 4 Chair/Yvk-qp-Ijzju Xfer(QC): 4 Car Transfer (QC): 3 Gait Training Does the Patient Walk?: Yes Distance: 75' x 4 Walk 10 feet (QC): 4 Walk 50 ft with 2 Turns(QC): 3 Walk 150 ft (QC): 88 Walking 10ft/uneven surface-QC: 4 Gait Persons Needed: 1 Gait Assistive Device: FWW Wheelchair Training Does the Pt Use a Wheelchair?: Yes Distance: 80 Wheel 50 ft with 2 turns (QC): 4 Wheel 150 ft (QC): 8 Type of Wheelchair: Manual Stair Training #of Steps: 12 1 Step (curb) (QC): 4 4 Steps (QC): 3 12 Steps (QC): 2 Balance Picking up an Object (QC): 4 ADL-Treatment Eating (QC): 4 (per clinical judgement) Oral Hygiene (QC): 3 Shower/Bathe Self (QC): 3 Upper Body Dressing (QC): 3 Lower Body Dressing (QC): 3 On/Off Footwear (QC): 2 (dependent to don debbie hose.) Toileting Hygiene (QC): 3 (Assistance for thoroughness and min a for balance during clothing management) Toilet Transfer (QC): 3 Assessment/Plan Assessment and Plan Assess & Plan/Chief Complaint Assessment: 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
[2022-04-19 07:49] VITALS: BP 144/71
--- NOTE | 2022-04-19 09:05 | Physical Therapy Daily Note ---
PT Daily Note-Current Subjective Pt. in bed, c/o he is so tired, breakfast untouched on his tray. Pt. denies anyone attempted to get him up for Brkfst but nurse explains pt. declined x2 to get out of bed. Pain Location: No Pain Reported Mental Status Patient Orientation: Person, Confused Attachments: Other-See Comments (THANH galloway , eye patch) Transfers SCALE: Activities may be completed with or without assistive devices. 6-Gwgwtxbqkv-stqcazk completes the activity by him/herself with no assistance from a helper. 5-Set-up or Clean-up Assistance-helper sets up or cleans up; patient completes a ctivity. [place] assists only prior to or following the activity. 4-Supervision or Touching Assistance-helper provides verbal cues and/or touching/steadying and/or contact guard assistance as patient completes activity. Assistance may be provided throughout the activity or intermittently. 3-Partial/Moderate Assistance-helper does LESS THAN HALF the effort. [place] lifts, holds or supports trunk or limbs, but provides less than half the effort. 2-Substantial/Maximal Assistance-helper does MORE THAN HALF the effort. [place] lifts or holds trunk or limbs and provides more than half the effort. 5-Hxjebrfxl-ayeito does ALL the effort. Patient does none of the effort to complete the activity. Or, the assistance of 2 or more helpers is required for the patient to complete the activity. If activity was not attempted, code reason: 7-Patient Refused. 9-Not Applicable-not attempted and the patient did not perform the activity before the current illness, exacerbation or injury. 10-Not Attempted due to Environmental Limitations-(lack of equipment, weather restraints, etc.). 88-Not Attempted due to Medical Conditions or Safety Concerns. Roll Left & Right (QC): 6 Lying to Sitting/Side of Bed(Q: 5 (hOB up) Chair/Hmz-cf-Rgudt Xfer(QC): 4 Toilet Transfer (QC): 4 needs guided and min support for stability for all TRFs on feet Weight Bearing Right Lower Extremity: Right Full Weight Bearing Left Lower Extremity: Left Full Weight Bearing Gait Training Gait Assistive Device: FWW only for trfs a few feet ass pt. c/o extreme fatigue , moans and sighs when attempts made on feet, unable to obtain BPs in standing , see seated BPs below Wheelchair Training Does the Pt Use a Wheelchair?: Yes Wheel 50 ft with 2 turns (QC): 5 Wheel 150 ft (QC): 4 Type of Wheelchair: Manual needs hand over hand instruction on w/c wheels to propel, can brake w/c on one side indep ,needs assist on right side Exercises Supine Ex: Heel Slides, Hip abd/add Supine Reps: 10 Seated Therapy Exercises: Ankle pumps, Sit to stand, Hip flexion Seated Reps: 10 Treatments TRF bed to sit EOB for BPs, Pt. then TRFd to w/c to eat brkfst finishing 100%, then SPT with FWW bed to w/c to BSC with min assist.Pt. then c/o extreme fatigue and min dizziness, seated BP134/67,109/61,113/76., pt. required mod assist to doff soiled brief and ashely clean, pt. did urinate a lot on BSC, TEDs donned, SPT to w/c . In brief stance pt. c/o extreme fatigue, w/c to gym for stance at // bars, seated LE ex, pt. left in w/c with bryan, needs met, Assessment Current Status: Poor Progress limited by extreme fatigue, this WET ROASTER suspects low standing BPs but equipment would not register in standing , tried several times, changed machines still no reading in stance PT [facility] Goals Project Financial Analyst Goals PT [facility] Goals Time Frame: May 12, 2022 Roll Left & Right (QC): 6 Sit to Lying (QC): 6 Lying-Sitting on Side/Bed(QC): 6 Sit to Stand (QC): 6 Chair/Pyd-fo-Vuvil Xfer(QC): 6 Toilet Transfer (QC): 6 Car Transfer (QC): 6 Does the Patient Walk: Yes Walk 10 feet (QC): 6 Walk 50ft with 2 Turns (QC): 6 Walk 150 ft (QC): 4 Walking 10ft on Uneven Surface: 6 1 Step (curb) (QC): 6 4 Steps (QC): 4 12 Steps (QC): 4 Picking up an Object (QC): 6 Does the Pt use WC or Scooter?: No Wheel 50 feet with 2 turns (QC: 88 Wheel 150 feet: 88 PT Plan Treatment/Plan Treatment Plan: Continue Plan of Care Treatment Plan: Bed Mobility, Education, Functional Activity Jenifer, Functional Strength, Group Therapy, Gait, Safety, Therapeutic Exercise, Transfers Treatment Duration: May 12, 2022 Frequency: At least 5 of 7 days/Wk (IRF) Estimated Hrs Per Day: 1.5 hours per day Patient and/or Family Agrees t: Yes Safety Risks/Education Patient Education: Transfer Techniques, Correct Positioning, Safety Issues Teaching Recipient: Patient Teaching Methods: Discussion Response to Teaching: Reinforcement Needed Time/GCodes Time In: 745 Time Out: 900 Total Billed Treatment Time: 75 Total Billed Treatment 1,WC15m,FA45m, ex15m CHENCHO MCMAHON PTA Apr 19, 2022 09:05
[2022-04-19] MEDS: DIGOXIN 0.125 MG (LANOXIN) TAB PO SCH (09:32)
[2022-04-19] MEDS: DOCUSATE SODIUM 100 MG (COLACE) CAP PO SCH ×2 (09:32→21:27)
[2022-04-19] MEDS: SENNA W/DOCUSATE (SENOKOT S) TABLET PO SCH ×2 (09:32→21:27)
[2022-04-19] MEDS: OFLOXACIN 0.3% OPHTH SOLN 5 ML OP SCH ×4 (09:33→21:22)
[2022-04-19] MEDS: polyethylene glycoL POWDER 17 GM (MIRALAX) PACK PO SCH ×2 (09:33→21:27)
[2022-04-19] MEDS: DICLOFENAC 1% GEL 100 GM (VOLTAREN) TUBE TOP SCH ×4 (09:34→21:22)
--- NOTE | 2022-04-19 10:04 | Occupational Ther Daily Note ---
OT Current Status-Daily Note Subjective Pt will intermittently c/o RUE pain, but pain is never in same location. No c/o pain during UE exercises. Mental Status/Objective Patient Orientation: Person, Confused (oriented to self only) ADL-Treatment Therapy Code Descriptions/Definitions Functional [place] Measure: 0=Not Assessed/NA 4=Minimal Assistance 1=Total Assistance 5=Supervision or Setup 2=Maximal Assistance 6=Modified [place] 3=Moderate Assistance 7=Complete IndependenceSCALE: Activities may be completed with or without assistive devices. 6-Gqbfjcslvl-tgaylvd completes the activity by him/herself with no assistance from a helper. 5-Set-up or Clean-up Assistance-helper sets up or cleans up; patient completes activity. [place] assists only prior to or following the activity. 4-Supervision or Touching Assistance-helper provides verbal cues and/or touching/steadying and/or contact guard assistance as patient completes activity. Assistance may be provided throughout the activity or intermittently. 3-Partial/Moderate Assistance-helper does LESS THAN HALF the effort. [place] lifts, holds or supports trunk or limbs, but provides less than half the effort. 2-Substantial/Maximal Assistance-helper does MORE THAN HALF the effort. [place] lifts or holds trunk or limbs and provides more than half the effort. 2-Emlrgrbve-kddyfd does ALL the effort. Patient does none of the effort to complete the activity. Or, the assistance of 2 or more helpers is required for the patient to complete the activity. If activity was not attempted, code reason: 7-Patient Refused. 9-Not Applicable-not attempted and the patient did not perform the activity before the current illness, exacerbation or injury. 10-Not Attempted due to Environmental Limitations-(lack of equipment, weather restraints, etc.). 88-Not Attempted due to Medical Conditions or Safety Concerns. Oral Hygiene (QC): 3 Upper Body Dressing (QC): 4 Lower Body Dressing (QC): 3 ~2 minutes prior to OT arrival (when OT walked by room), pt was sitting in chair. As OT entered, pt had returned to bed, reports he transferred back by himself. Education on safety and fall policy. Poor comprehension. RN notified that alarms will need to be set. Pt continues to report fatigue and requires encouragement to participate. Shower deferred secondary to low BP. Supine (119/67, pulse 70 bpm), Sitting (111/62, pulse 62 bpm), standing (95/48, pulse 60 bpm-symptomatic). Partial Sponge bath performed sitting on side of bed. Pt was able to wash upper body and front anuradha. However, requires step by step cues to initiate and move onto next body part as he often washes same area until cued to terminate. LB not addressed secondary to Sammy hose already donned. Pt often c/o fatigue throughout activity and needs encouragement to keeping pushing forward in order to improve activity tolerance. BP post bathing activity (104/60, pulse 83 bpm-asymptomatic). When donning shirt, max cues needed for sequencing and correct orientation. Significant time to complete, tactile and verbal cues only. Minimal assistance needed to thread RLE into pant leg due to weakness as well as visual deficits. Impulsive to stand, needing cues to move slowly when changing positions. Steadying assist provided when managing clothing up to waist. Other Treatment Sitting up in bed pt participated in 2 sets of 10 reps of 1 lb weighted dowel UE exercises in all planes, to improve endurance and strength of his UEs. He fatigued quickly and needed adequate rest breaks after each exercise. He needed min-mod verbal and visual cues for proper technique. Pt moaned twice about shoulder/arm pain, but still able to complete all reps to full range. Education OT Patient Education: Correct positioning, Energy conservation, Exercise program, Modified ADL techniques, Progress toward Goal/Update tx plan, Purpose of tx/functional activities, Reviewed precautions, Rehab process, Safety issues, Transfer techniques Teaching Recipient: Patient Teaching Methods: Demonstration, Discussion Response to Teaching: Verbalize Understanding, Return Demonstration, Reinforcement Needed OT Short Term Goals Short Term Goals Time Frame: Apr 25, 2022 Eatin Oral hygiene: 4 Toileting hygiene: 3 Shower/bathe self: 3 Upper body dressin Lower body dressin Putting on/taking off footwear: 4 OT Bung Remover Goals Bung Remover Goals Time Frame: May 04, 2022 Eating (QC): 5 Oral Hygiene (QC): 5 Toileting Hygiene (QC): 6 Shower/Bathe Self (QC): 5 Upper Body Dressing (QC): 6 Lower Body Dressing (QC): 6 On/Off Footwear (QC): 5 Additional Goals: 1-Demonstrate ADL Tasks, 2-Verbalize Understanding, 3- ImproveStrength/Jenifer 1=Demonstrate adherence to instructed precautions during ADL tasks. 2=Patient will verbalize/demonstrate understanding of assistive devices/modifications for ADL. 3=Patient will improve strength/tolerance for activity to enable patient to perform ADL's. OT Education/Plan Problem List/Assessment Assessment: Decreased Activ Tolerance, Decreased Safety Aware, Decreased UE Strength, Impaired Bed Mobility, Impaired Cognition, Impaired Coordination, Impaired Funct Balance, Impaired I ADL's, Impaired Self-Care Skills, Restricted Funct UE ROM, Visual-Perceptual Deficit Discharge Recommendations Plan/Recommendations: Continue POC Therapy Discharge Recommendati: 24 Hour Supervision Treatment Plan/Plan of Care Treatment,Training & Education: Yes Patient would benefit from OT for education, treatment and training to promote i ndependence in ADL's, mobility, safety and/or upper extremity function for ADL's. Plan of Care: ADL Retraining, Caregiver Training, Cognitive Retraining, Concurrent Therapy, Functional Mobility, Group Exercise/Act as Ind, UE Funct Exe rcise/Act, UE Neuromus Re-Ed/Coord, Visual/Perceptual Retrain, W/C Management Training Treatment Duration: May 04, 2022 Frequency: At least 5 of 7 days/Wk (IRF) Estimated Hrs Per Day: 1.5 hours per day (75-90 minutes) Agreement: Yes Rehab Potential: Guarded Time/GCodes Start Time: 09:00 Stop Time: 10:15 Total Time Billed (hr/min): 75 Billed Treatment Time 1 visit ADL x4 (60 minutes) EX x1 (15 minutes) Lissett Worley OT Apr 19, 2022 10:04
--- NOTE | 2022-04-19 12:22 | Speech Therapy Daily Note ---
Speech Daily Progress Note Subjective Date Seen by Provider: Apr 19, 2022 Time Seen by Provider: 10:32 The patient was lying in bed, sleeping upon entrance to his room by the clinician. The patient required maximum verbal cueing from the clinician for limited alertness throughout the treatment session, frequently reporting fatigue. The patient greeted the clinician appropriately and was agreeable to participation in the cognitive linguistic and dysphagia treatment session. Objective The patient and the clinician reviewed the patient's safe swallowing strategies, current diet consistency recommendations, and dysphagia exercises. The patient independently consumed nectar-thick liquids via straw throughout the session without s/s of suspected aspiration. The patient completed ten repetitions of the effortful swallowing exercise and the Melissa exercise following verbal clinician directions and direct modeling. The patient required moderate verbal prompting to recall recent therapy sessions from additional therapy disciplines, as well as, safety cues provided for use of the wheelchair and walker. The patient reports his vision difficulty with the right eye again on this date, however, denied difficulty with visual field scanning or mobility with his visual deficit. The clinician reviewed recent physical therapy/occupational therapy notes which state the patient does have reduced awareness of items on the right side during ambulation. Safety cues for visual scanning were discussed with the patient, who verbalized comprehension. Assessment Assessment Current Status: Fair Progress Treatment Plan Continue Plan of Care Speech Short Term Goals Short Term Goals Short Term Goals 1. The patient will follow safe swallowing strategies with 90% accuracy and mild clinician verbal cueing and direct modeling. 2. The patient will demonstrate 75% accuracy with memory exercises with mild clinician verbal cueing. Time Frame-STG: Five Days. Speech Director Nursing Service Goals Director Nursing Service Goals 1. The patient will tolerate the least restrictive diet consistency without overt s/s of suspected aspiration. 2. The patient will demonstrate improved cognitive linguistic skills for safe discharge to the least restrictive environment. Time Frame: Ten Days. Speech-Plan Treatment Plan Speech Therapy Treatment Plan: Continue Plan of Care Treatment Duration: Apr 14, 2022 Frequency: Modified Program (IRF) Estimated Hrs Per Day: .5 hour per day Rehab Potential: Guarded Safety Risks/Education Teaching Recipient: Patient Teaching Methods: Demonstration, Discussion Response to Teaching: Return Demonstration, Reinforcement Needed Education Topics Provided: Dysphagia Exercises Time Speech Therapy Time In: 10:32 Speech Therapy Time Out: 11:02 Total Billed Time: 30 Billed Treatment Time ORLANDO Orozco DYST No LOY, ELIZABETH ST Apr 19, 2022 12:22
[2022-04-19] MEDS: lisINopril 5 MG (PRINIVIL) TABLET PO SCH (14:30)
[2022-04-19 16:51] VITALS: BP 169/81
[2022-04-19] MEDS: warFARin 5 MG (COUMADIN) TAB PO SCH (18:22)
[2022-04-19 19:58] VITALS: BP 144/87
[2022-04-19] MEDS: MELATONIN 3 MG TABLET PO PRN (21:22)
[2022-04-19] MEDS: ALPRAZolam 0.25 MG (XANAX) TAB PO PRN (21:22)
[2022-04-19] MEDS: ASPIRIN 81 MG CHEW (CHILDREN'S ASA) PO SCH (21:23)
--- NOTE | 2022-04-20 05:41 | PM&R Progress Note ---
Subjective HPI/CC On Admission Date Seen by Provider: Apr 20, 2022 Time Seen by Provider: 10:30 Subjective/Events-last exam 04/20/2022: No major issues RN has no concerns Increased ambulatory function 04/19/2022: Pt is doing pretty well Had some insomnia last night BP is labile Orthostatic hypotension limits the medication Updated Dr. Garcia, who is managing the INR 04/18/2022: No major events last night No pain Moving around well 04/17/2022: No major issues No pain reported Checked meds and labs 04/16/2022: Patient seems to be doing well Poor memory recall No pain reported 04/15/2022: Doing well Had orthostasis yesterday and Dr Garcia adjusted meds Patient denies pain No falls 04/14/2022: Pt is doing pretty well He is a bit confused Bed alarm on for fall risk Checked meds and labs No falls Review of Systems General: Fatigue, Malaise Objective Exam Vital Signs Vital Signs Date Time Temp Pulse Resp B/P (MAP) Pulse Ox O2 Delivery O2 Flow Rate FiO2 04/20/22 17:07 68 166/89 (114) 04/20/22 08:50 Room Air 04/20/22 08:00 36.2 16 95 Capillary Refill : General Appearance: No Apparent Distress, WD/WN, Chronically ill, Thin HEENT: PERRL/EOMI, Normal ENT Inspection, Pharynx Normal, Moist Mucous Membranes Neck: Non Tender, Supple Respiratory: Chest Non Tender, Lungs Clear, Normal Breath Sounds, No Accessory Muscle Use, No Respiratory Distress Cardiovascular: Regular Rate, Rhythm, No Edema, No Gallop, No JVD Gastrointestinal: Normal Bowel Sounds, No Organomegaly, No Pulsatile Mass, Non Tender, Soft Rectal: Deferred Extremity: No Pedal Edema, Calf Tenderness (mild) Neurologic/Psychiatric: Alert, Normal Mood/Affect, Motor Weakness (Generalized all extremities) Skin: Normal Color, Warm/Dry Lymphatic: No Adenopathy Results/Procedures Lab Patient resulted labs reviewed. FIM Transfers Therapy Code Descriptions/Definitions Functional [place] Measure: 0=Not Assessed/NA 4=Minimal Assistance 1=Total Assistance 5=Supervision or Setup 2=Maximal Assistance 6=Modified [place] 3=Moderate Assistance 7=Complete IndependenceSCALE: Activities may be completed with or without assistive devices. 8-Ypvcjzfnev-vytzuaw completes the activity by him/herself with no assistance from a helper. 5-Set-up or Clean-up Assistance-helper sets up or cleans up; patient completes activity. [place] assists only prior to or following the activity. 4-Supervision or Touching Assistance-helper provides verbal cues and/or touching/steadying and/or contact guard assistance as patient completes activity. Assistance may be provided throughout the activity or intermittently. 3-Partial/Moderate Assistance-helper does LESS THAN HALF the effort. [place] lifts, holds or supports trunk or limbs, but provides less than half the effort. 2-Substantial/Maximal Assistance-helper does MORE THAN HALF the effort. [place] lifts or holds trunk or limbs and provides more than half the effort. 2-Rrnsqlpen-hsxaqc does ALL the effort. Patient does none of the effort to complete the activity. Or, the assistance of 2 or more helpers is required for the patient to complete the activity. If activity was not attempted, code reason: 7-Patient Refused. 9-Not Applicable-not attempted and the patient did not perform the activity before the current illness, exacerbation or injury. 10-Not Attempted due to Environmental Limitations-(lack of equipment, weather restraints, etc.). 88-Not Attempted due to Medical Conditions or Safety Concerns. Roll Left to Right (QC): 6 Sit to Lying (QC): 6 Sit to Stand (QC): 4 Chair/Kif-cp-Ofsfu Xfer(QC): 4 Car Transfer (QC): 3 Gait Training Does the Patient Walk?: Yes Distance: 75' x 4 Walk 10 feet (QC): 4 Walk 50 ft with 2 Turns(QC): 3 Walk 150 ft (QC): 88 Walking 10ft/uneven surface-QC: 4 Gait Persons Needed: 1 Gait Assistive Device: FWW Wheelchair Training Does the Pt Use a Wheelchair?: Yes Distance: 80 Wheel 50 ft with 2 turns (QC): 5 Wheel 150 ft (QC): 4 Type of Wheelchair: Manual Stair Training #of Steps: 12 1 Step (curb) (QC): 4 4 Steps (QC): 3 12 Steps (QC): 2 Balance Picking up an Object (QC): 4 ADL-Treatment Eating (QC): 4 (per clinical judgement) Oral Hygiene (QC): 3 Shower/Bathe Self (QC): 3 Upper Body Dressing (QC): 4 Lower Body Dressing (QC): 3 On/Off Footwear (QC): 2 (dependent to don debbie hose.) Toileting Hygiene (QC): 3 (Assistance for thoroughness and min a for balance during clothing management) Toilet Transfer (QC): 3 Assessment/Plan Assessment and Plan Assess & Plan/Chief Complaint Assessment: 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
[2022-04-20 06:23] LABS: INR 2.3 (0.8-1.4); PROTHROMBIN TIME PATIENT 25.5 SEC (12.2-14.7)
[2022-04-20 08:00] VITALS: BP 129/64
[2022-04-20] MEDS: OFLOXACIN 0.3% OPHTH SOLN 5 ML OP SCH ×4 (08:23→20:57)
[2022-04-20] MEDS: DOCUSATE SODIUM 100 MG (COLACE) CAP PO SCH ×2 (08:23→20:58)
[2022-04-20] MEDS: DIGOXIN 0.125 MG (LANOXIN) TAB PO SCH (08:23)
[2022-04-20] MEDS: DICLOFENAC 1% GEL 100 GM (VOLTAREN) TUBE TOP SCH ×4 (08:23→20:58)
[2022-04-20] MEDS: polyethylene glycoL POWDER 17 GM (MIRALAX) PACK PO SCH ×2 (08:24→21:00)
[2022-04-20] MEDS: SENNA W/DOCUSATE (SENOKOT S) TABLET PO SCH ×2 (08:24→20:58)
--- NOTE | 2022-04-20 08:30 | Physical Therapy Daily Note ---
PT Daily Note-Current Subjective Pt. in bed, agrees to Rx, pt. c/o not feeling well, exhausted and sighs deeply as soon as sits, improving somewhat but definitely worse with stance and exercises Pain Location: No Pain Reported Mental Status Patient Orientation: Person Attachments: Other-See Comments (THANH galloway) Transfers SCALE: Activities may be completed with or without assistive devices. 6-Xgzpkafpjj-jdggfzi completes the activity by him/herself with no assistance from a helper. 5-Set-up or Clean-up Assistance-helper sets up or cleans up; patient completes activity. [place] assists only prior to or following the activity. 4-Supervision or Touching Assistance-helper provides verbal cues and/or touching/steadying and/or contact guard assistance as patient completes activity. Assistance may be provided throughout the activity or intermittently. 3-Partial/Moderate Assistance-helper does LESS THAN HALF the effort. [place] lifts, holds or supports trunk or limbs, but provides less than half the effort. 2-Substantial/Maximal Assistance-helper does MORE THAN HALF the effort. [place] lifts or holds trunk or limbs and provides more than half the effort. 7-Hgngkaxtk-kygrqg does ALL the effort. Patient does none of the effort to complete the activity. Or, the assistance of 2 or more helpers is required for the patient to complete the activity. If activity was not attempted, code reason: 7-Patient Refused. 9-Not Applicable-not attempted and the patient did not perform the activity before the current illness, exacerbation or injury. 10-Not Attempted due to Environmental Limitations-(lack of equipment, weather restraints, etc.). 88-Not Attempted due to Medical Conditions or Safety Concerns. Roll Left & Right (QC): 6 Sit to Lying (QC): 6 Lying to Sitting/Side of Bed(Q: 6 Sit to Stand (QC): 4 Chair/Vbg-it-Mqhvi Xfer(QC): 3 pt. with symptoms of extreme fatigue and some SOB and briefly unresponsive as in a daze during TRFs bed to w/c and sit to stand, pt requires mod assist during TRFs secondary to this Weight Bearing Right Lower Extremity: Right Full Weight Bearing Left Lower Extremity: Left Full Weight Bearing Gait Training SPTs only, pt. could not tolerate gait as BP drops upon stance and pt is symptomatic Wheelchair Training Does the Pt Use a Wheelchair?: Yes Wheel 50 ft with 2 turns (QC): 5 Type of Wheelchair: Manual 100ft x 2 with instruction and guidance, pt. quickly c/o fatigue and SOB, Exercises Supine Ex: Ankle pumps, Quad Set, Rolling, Heel Slides, Scooting, Straight leg raise, Hip abd/add Supine Reps: 10 Treatments sup therex, donned TEDs max assist, TRFs sup to sit to SPT to w/c, w/c mob, attempted standing at // bars with pts BP monitored throughout Rx, seated BP103/53, HR 48, in stance pt. had and episode and needed mod to max assist to sit down, unresponsive, eyes glazed unable to obtain BP reading, nurse notified, pt. TRFd to bed, nurse present. Assessment Current Status: Poor Progress This pt has poor tolerance of any standing position, fatigues very quickly. WC i s the only mode of mobility that is safe for him as BP drops , Orthostatic hypotensive, This pt has a mobility limitation that significantly impairs his ability to participate in many ADLs. A cane or walker is not helpful to this pt at this time. The pt states he has enough room in his home for w/c clearance. Pt demonstrates safe indep use f w/c with this DIE HOLDER durig Rx PT Irrigation Worker Goals Fdc Goals PT Irrigation Worker Goals Time Frame: May 12, 2022 Roll Left & Right (QC): 6 Sit to Lying (QC): 6 Lying-Sitting on Side/Bed(QC): 6 Sit to Stand (QC): 6 Chair/Kzr-pb-Izamc Xfer(QC): 6 Toilet Transfer (QC): 6 Car Transfer (QC): 6 Does the Patient Walk: Yes Walk 10 feet (QC): 6 Walk 50ft with 2 Turns (QC): 6 Walk 150 ft (QC): 4 Walking 10ft on Uneven Surface: 6 1 Step (curb) (QC): 6 4 Steps (QC): 4 12 Steps (QC): 4 Picking up an Object (QC): 6 Does the Pt use WC or Scooter?: No Wheel 50 feet with 2 turns (QC: 88 Wheel 150 feet: 88 PT Plan Treatment/Plan Treatment Plan: Continue Plan of Care Treatment Plan: Bed Mobility, Education, Functional Activity Jenifer, Functional Strength, Group Therapy, Gait, Safety, Therapeutic Exercise, Transfers Treatment Duration: May 12, 2022 Frequency: At least 5 of 7 days/Wk (IRF) Estimated Hrs Per Day: 1.5 hours per day Patient and/or Family Agrees t: Yes Safety Risks/Education Patient Education: Transfer Techniques, Correct Positioning, Disease Process, Safety Issues Teaching Recipient: Patient Response to Teaching: Reinforcement Needed Time/GCodes Time In: 745 Time Out: 830 Total Billed Treatment Time: 45 Total Billed Treatment 1,FA20m,EX10m,WC15m CHENCHO MCMAHON PTA Apr 20, 2022 08:29
--- NOTE | 2022-04-20 09:00 | Speech Therapy Daily Note ---
Speech Daily Progress Note Subjective Date Seen by Provider: Apr 20, 2022 Time Seen by Provider: 08:30 The patient was lying in bed, sleeping upon entrance to his room by the clinician. The patient woke easily with a verbal greeting from the clinician and was agreeable to participation in the dysphagia and cognitive linguistic treatment session. Objective The patient completed P.O. trials of thin liquid on this date. The patient did not display overt s/s of suspected aspiration with ice chips (two). The patient displayed a delayed throat clear following one of five teaspoons trials of thin liquid. The patient demonstrated a rigorous cough immediately following straw trials of thin liquid (four of four). The patient does not display s/s of suspected aspiration with nectar-thick liquids by straw. The patient and clinician reviewed swallowing exercises. The patient completes swallowing exercises with high accuracy, independently. Assessment Assessment Current Status: Fair Progress Treatment Plan Continue Plan of Care Speech Short Term Goals Short Term Goals Short Term Goals 1. The patient will follow safe swallowing strategies with 90% accuracy and mild clinician verbal cueing and direct modeling. 2. The patient will demonstrate 75% accuracy with memory exercises with mild clinician verbal cueing. Time Frame-STG: Five Days. Speech Intermediate Goals Mail Caller Goals 1. The patient will tolerate the least restrictive diet consistency without overt s/s of suspected aspiration. 2. The patient will demonstrate improved cognitive linguistic skills for safe discharge to the least restrictive environment. Time Frame: Ten Days. Speech-Plan Treatment Plan Speech Therapy Treatment Plan: Continue Plan of Care Treatment Duration: Apr 14, 2022 Frequency: Modified Program (IRF) Estimated Hrs Per Day: .5 hour per day Rehab Potential: Guarded Safety Risks/Education Teaching Recipient: Patient Teaching Methods: Demonstration, Discussion Response to Teaching: Verbalize Understanding, Return Demonstration Education Topics Provided: Results, Swallowing Exercises Time Speech Therapy Time In: 08:30 Speech Therapy Time Out: 09:00 Total Billed Time: 30 Billed Treatment Time 1ORLANDO DYST LOY, ELIZABETH ST Apr 20, 2022 09:00
[2022-04-20 09:25] VITALS: BP 128/67
[2022-04-20] MEDS: lisINopril 5 MG (PRINIVIL) TABLET PO SCH (09:32)
--- NOTE | 2022-04-20 10:31 | Occupational Ther Daily Note ---
OT Current Status-Daily Note Subjective Pt supine in bed and beginning of tx, agreeable to OT tx. ADL-Treatment Therapy Code Descriptions/Definitions Functional [place] Measure: 0=Not Assessed/NA 4=Minimal Assistance 1=Total Assistance 5=Supervision or Setup 2=Maximal Assistance 6=Modified [place] 3=Moderate Assistance 7=Complete IndependenceSCALE: Activities may be completed with or without assistive devices. 5-Monanvnxjr-jiajoit completes the activity by him/herself with no assistance from a helper. 5-Set-up or Clean-up Assistance-helper sets up or cleans up; patient completes activity. [place] assists only prior to or following the activity. 4-Supervision or Touching Assistance-helper provides verbal cues and/or touching/steadying and/or contact guard assistance as patient completes activity. Assistance may be provided throughout the activity or intermittently. 3-Partial/Moderate Assistance-helper does LESS THAN HALF the effort. [place] lifts, holds or supports trunk or limbs, but provides less than half the effort. 2-Substantial/Maximal Assistance-helper does MORE THAN HALF the effort. [place] lifts or holds trunk or limbs and provides more than half the effort. 9-Amasrjnro-yfudec does ALL the effort. Patient does none of the effort to complete the activity. Or, the assistance of 2 or more helpers is required for the patient to complete the activity. If activity was not attempted, code reason: 7-Patient Refused. 9-Not Applicable-not attempted and the patient did not perform the activity before the current illness, exacerbation or injury. 10-Not Attempted due to Environmental Limitations-(lack of equipment, weather restraints, etc.). 88-Not Attempted due to Medical Conditions or Safety Concerns. Other Treatment Pt beginning BP 118/77. Pt transferred from supine in bed to EOB to complete yellow theraband exercises by completing elbow flexion/extension, shoulder horizontal abduction/adduction, shoulder flexion and punch outs to increase endurance and BUE strength. Pt moaned with shoulder pain 3x during exercises but wanted to complete exercises. Pt required Farshad for cueing and demonstration to complete exercises. After exercises, pt BP 138/84. Pt completed 2x mcgraw bag toss while sitting EOB to increase endurance and trunk control. Pt then stated he wanted to use the restroom. Pt ambulated to bathroom with CGA with FWW to com plete toileting with ModA to cleanse bottom and change brief. Pt ambulated back to EOB to complete trunk strengthening exercises by rotation trunk to reach for mcgraw bag and place it on opposite side of body 2x. Pt BP 138/71. Pt transferred to supine at end of tx with call light in reach and all needs met. Education OT Patient Education: Home exercise program Teaching Recipient: Patient Teaching Methods: Demonstration Response to Teaching: Verbalize Understanding, Return Demonstration OT Short Term Goals Short Term Goals Time Frame: Apr 25, 2022 Eatin Oral hygiene: 4 Toileting hygiene: 3 Shower/bathe self: 3 Upper body dressin Lower body dressin Putting on/taking off footwear: 4 OT Flag Maker Goals Detention Goals Time Frame: May 04, 2022 Eating (QC): 5 Oral Hygiene (QC): 5 Toileting Hygiene (QC): 6 Shower/Bathe Self (QC): 5 Upper Body Dressing (QC): 6 Lower Body Dressing (QC): 6 On/Off Footwear (QC): 5 Additional Goals: 1-Demonstrate ADL Tasks, 2-Verbalize Understanding, 3-ImproveStrength/Jenifer 1=Demonstrate adherence to instructed precautions during ADL tasks. 2=Patient will verbalize/demonstrate understanding of assistive devices/modifications for ADL. 3=Patient will improve strength/tolerance for activity to enable patient to perform ADL's. OT Education/Plan Problem List/Assessment Assessment: Decreased Activ Tolerance, Decreased UE Strength, Impaired Bed Mobility, Impaired Cognition, Impaired Coordination, Impaired Funct Balance, Impaired I ADL's, Impaired Self-Care Skills Discharge Recommendations Plan/Recommendations: Continue POC Treatment Plan/Plan of Care Patient would benefit from OT for education, treatment and training to promote independence in ADL's, mobility, safety and/or upper extremity function for ADL's. Plan of Care: ADL Retraining, Caregiver Training, Cognitive Retraining, Concurrent Therapy, Functional Mobility, Group Exercise/Act as Ind, UE Funct E xercise/Act, UE Neuromus Re-Ed/Coord, Visual/Perceptual Retrain, W/C Management Training Treatment Duration: May 04, 2022 Frequency: At least 5 of 7 days/Wk (IRF) Estimated Hrs Per Day: 1.5 hours per day (75-90 minutes) Agreement: Yes Rehab Potential: Guarded Time/GCodes Start Time: 09:30 Stop Time: 10:30 Total Time Billed (hr/min): 60 Billed Treatment Time 1, ADL (10min), EX (15min), FA 2 (35min) Brenda Brown Apr 20, 2022 10:31
--- NOTE | 2022-04-20 11:41 | Physical Therapy Daily Note ---
PT Daily Note-Current Subjective Patient lying supine bed upon PT arrival, agreeable to treatment. Patient rates pain currently at 0/10 and notes he is not dizzy at all, nor has be felt dizzy per his report. Mental Status Patient Orientation: Person Transfers SCALE: Activities may be completed with or without assistive devices. 5-Mjaojtsklg-ldaxbpt completes the activity by him/herself with no assistance fr om a helper. 5-Set-up or Clean-up Assistance-helper sets up or cleans up; patient completes activity. [place] assists only prior to or following the activity. 4-Supervision or Touching Assistance-helper provides verbal cues and/or touching/steadying and/or contact guard assistance as patient completes activity. Assistance may be provided throughout the activity or intermittently. 3-Partial/Moderate Assistance-helper does LESS THAN HALF the effort. [place] lifts, holds or supports trunk or limbs, but provides less than half the effort. 2-Substantial/Maximal Assistance-helper does MORE THAN HALF the effort. [place] lifts or holds trunk or limbs and provides more than half the effort. 4-Kmmwocwph-bmgmph does ALL the effort. Patient does none of the effort to complete the activity. Or, the assistance of 2 or more helpers is required for the patient to complete the activity. If activity was not attempted, code reason: 7-Patient Refused. 9-Not Applicable-not attempted and the patient did not perform the activity before the current illness, exacerbation or injury. 10-Not Attempted due to Environmental Limitations-(lack of equipment, weather restraints, etc.). 88-Not Attempted due to Medical Conditions or Safety Concerns. Roll Left & Right (QC): 6 Sit to Lying (QC): 6 Lying to Sitting/Side of Bed(Q: 6 Sit to Stand (QC): 3 Chair/Tkk-pt-Yolmn Xfer(QC): 3 Weight Bearing Right Lower Extremity: Right Full Weight Bearing Left Lower Extremity: Left Full Weight Bearing Gait Training Does the Patient Walk?: Yes Distance: 6 Gait Persons Needed: 1 Gait Assistive Device: FWW Exercises Supine Ex: Ankle pumps, Quad Set, Glut sets, Heel Slides, Short Arc Quads, Straight leg raise, Hip abd/add Supine Reps: 20 Seated Therapy Exercises: Long arc quads, Hip abd/add Seated Reps: 20 Treatments Sitting and standing static and dynamic balance activities to increase core and LE strength, and improve balance to aid in increase independence. Assessment Current Status: Poor Progress Patient tolerated treatment fair. Performs LE therapeutic exercise as listed above in supine and then in sitting. Patient performs all observed bed mobility with independence and transfers with min/CGA. Patient BP as follows: supine- 168/72, Sitting - 122/73, Sitting 5 minutes- 143/72, Standing- 97/52. Patient reports no dizziness throughout treatment. Patient in chair post treatment with all needs met, nursing notified, call light in hand, and chair alarm activated. PT [facility] Goals Infrastructure Project Manager Goals PT Infrastructure Project Manager Goals Time Frame: May 12, 2022 Roll Left & Right (QC): 6 Sit to Lying (QC): 6 Lying-Sitting on Side/Bed(QC): 6 Sit to Stand (QC): 6 Chair/Xmq-sk-Oqazs Xfer(QC): 6 Toilet Transfer (QC): 6 Car Transfer (QC): 6 Does the Patient Walk: Yes Walk 10 feet (QC): 6 Walk 50ft with 2 Turns (QC): 6 Walk 150 ft (QC): 4 Walking 10ft on Uneven Surface: 6 1 Step (curb) (QC): 6 4 Steps (QC): 4 12 Steps (QC): 4 Picking up an Object (QC): 6 Does the Pt use WC or Scooter?: No Wheel 50 feet with 2 turns (QC: 88 Wheel 150 feet: 88 PT Plan Treatment/Plan Treatment Plan: Continue Plan of Care Treatment Plan: Bed Mobility, Education, Functional Activity Jenifer, Functional Strength, Group Therapy, Gait, Safety, Therapeutic Exercise, Transfers Treatment Duration: May 12, 2022 Frequency: At least 5 of 7 days/Wk (IRF) Estimated Hrs Per Day: 1.5 hours per day Patient and/or Family Agrees t: Yes Safety Risks/Education Patient Education: Gait Training, Transfer Techniques Teaching Recipient: Patient Teaching Methods: Demonstration, Discussion Response to Teaching: Reinforcement Needed Time/GCodes Time In: 1105 Time Out: 1135 Total Billed Treatment Time: 30 Total Billed Treatment Visit, ExDEION JOHN A PT Apr 20, 2022 11:41
[2022-04-20 12:55] VITALS: BP_SYST 122; BP_SYST 168; BP_SYST 97; BP_DIAS 52; BP_DIAS 72; BP_DIAS 73
--- NOTE | 2022-04-20 12:55 | Occupational Ther Daily Note ---
OT Current Status-Daily Note Subjective Pt in bed, agreeable to OT Tx. ADL-Treatment Therapy Code Descriptions/Definitions Functional [place] Measure: 0=Not Assessed/NA 4=Minimal Assistance 1=Total Assistance 5=Supervision or Setup 2=Maximal Assistance 6=Modified [place] 3=Moderate Assistance 7=Complete IndependenceSCALE: Activities may be completed with or without assistive devices. 2-Gtjrtkgwjm-jiryrvp completes the activity by him/herself with no assistance from a helper. 5-Set-up or Clean-up Assistance-helper sets up or cleans up; patient completes activity. [place] assists only prior to or following the activity. 4-Supervision or Touching Assistance-helper provides verbal cues and/or touching/steadying and/or contact guard assistance as patient completes activity. Assistance may be provided throughout the activity or intermittently. 3-Partial/Moderate Assistance-helper does LESS THAN HALF the effort. [place] lifts, holds or supports trunk or limbs, but provides less than half the effort. 2-Substantial/Maximal Assistance-helper does MORE THAN HALF the effort. [place] lifts or holds trunk or limbs and provides more than half the effort. 2-Zfefkhtxj-vqewpn does ALL the effort. Patient does none of the effort to complete the activity. Or, the assistance of 2 or more helpers is required for the patient to complete the activity. If activity was not attempted, code reason: 7-Patient Refused. 9-Not Applicable-not attempted and the patient did not perform the activity befo re the current illness, exacerbation or injury. 10-Not Attempted due to Environmental Limitations-(lack of equipment, weather re straints, etc.). 88-Not Attempted due to Medical Conditions or Safety Concerns. Other Treatment OT tx with focus on increasing BUE strength and activity tolerance. Pt completed x10 reps BUE exercises using light resistance, yellow theraband. Pt recalled 0/5 exercises from previous session. completed 5/5 exercises 10 reps each. Pt required skilled verbal and instruction for correct technique. Post tx, pt in bed, call light in reach and all needs met. Education OT Patient Education: Correct positioning, Energy conservation, Modified ADL techniques, Progress toward Goal/Update tx plan, Purpose of tx/functional activities, Rehab process Teaching Recipient: Patient Teaching Methods: Discussion Response to Teaching: Verbalize Understanding OT Short Term Goals Short Term Goals Time Frame: Apr 25, 2022 Eatin Oral hygiene: 4 Toileting hygiene: 3 Shower/bathe self: 3 Upper body dressin Lower body dressin Putting on/taking off footwear: 4 OT [facility] Goals Produce Shipper Goals Time Frame: May 04, 2022 Eating (QC): 5 Oral Hygiene (QC): 5 Toileting Hygiene (QC): 6 Shower/Bathe Self (QC): 5 Upper Body Dressing (QC): 6 Lower Body Dressing (QC): 6 On/Off Footwear (QC): 5 Additional Goals: 1-Demonstrate ADL Tasks, 2-Verbalize Understanding, 3- ImproveStrength/Jenifer 1=Demonstrate adherence to instructed precautions during ADL tasks. 2=Patient will verbalize/demonstrate understanding of assistive devices/modifications for ADL. 3=Patient will improve strength/tolerance for activity to enable patient to perform ADL's. OT Education/Plan Problem List/Assessment Assessment: Decreased Activ Tolerance, Decreased UE Strength, Impaired Funct Balance, Impaired I ADL's, Impaired Self-Care Skills Discharge Recommendations Plan/Recommendations: Continue POC Treatment Plan/Plan of Care Patient would benefit from OT for education, treatment and training to promote independence in ADL's, mobility, safety and/or upper extremity function for ADL's. Plan of Care: ADL Retraining, Caregiver Training, Cognitive Retraining, Concurrent Therapy, Functional Mobility, Group Exercise/Act as Ind, UE Funct Exercise/Act, UE Neuromus Re-Ed/Coord, Visual/Perceptual Retrain, W/C Management Training Treatment Duration: May 04, 2022 Frequency: At least 5 of 7 days/Wk (IRF) Estimated Hrs Per Day: 1.5 hours per day (75-90 minutes) Agreement: Yes Rehab Potential: Guarded Time/GCodes Start Time: 12:45 Stop Time: 13:00 Total Time Billed (hr/min): 15 Billed Treatment Time 1, EX JAMAAL BARAKAT OT Apr 20, 2022 12:55
[2022-04-20] MEDS: HYDROcodone/APAP 7.5 MG/325 MG (LORTAB, LORCET PLUS) TABLET PO PRN (13:12)
[2022-04-20] MEDS: warFARin 5 MG (COUMADIN) TAB PO SCH (17:04)
[2022-04-20 17:07] VITALS: BP 166/89
[2022-04-20 20:30] VITALS: BP 131/78
[2022-04-20] MEDS: ASPIRIN 81 MG CHEW (CHILDREN'S ASA) PO SCH (20:58)
[2022-04-21 06:08] LABS: INR 2.3 (0.8-1.4); PROTHROMBIN TIME PATIENT 25.7 SEC (12.2-14.7)
--- NOTE | 2022-04-21 06:35 | PM&R Progress Note ---
Subjective HPI/CC On Admission Date Seen by Provider: Apr 21, 2022 Time Seen by Provider: 10:30 Subjective/Events-last exam 04/21/2022: Had a major event this morning with left arm weakness, left facial droop, and o bvious neurological deficit CT scan without showed no bleed INR was 2.3 Carotid US showed bilateral 50% or less Spoke with cardiology Spoke with stroke neurology, they agree nothing more to do unless he continues to have strokes MRI could be done but he has a pacemaker Speech has made no changes with dysphagia 2 diet Abnl UA noted 04/20/2022: No major issues RN has no concerns Increased ambulatory function 04/19/2022: Pt is doing pretty well Had some insomnia last night BP is labile Orthostatic hypotension limits the medication Updated Dr. Garcia, who is managing the INR 04/18/2022: No major events last night No pain Moving around well 04/17/2022: No major issues No pain reported Checked meds and labs 04/16/2022: Patient seems to be doing well Poor memory recall No pain reported 04/15/2022: Doing well Had orthostasis yesterday and Dr Garcia adjusted meds Patient denies pain No falls 04/14/2022: Pt is doing pretty well He is a bit confused Bed alarm on for fall risk Checked meds and labs No falls Review of Systems General: Fatigue, Malaise Neurological: Weakness, Incoordination Objective Exam Vital Signs Vital Signs Date Time Temp Pulse Resp B/P (MAP) Pulse Ox O2 Delivery O2 Flow Rate FiO2 04/21/22 20:38 Room Air 04/21/22 20:00 35.9 72 20 131/68 (89) 96 Capillary Refill : General Appearance: No Apparent Distress, WD/WN, Chronically ill, Thin HEENT: PERRL/EOMI, Normal ENT Inspection, Pharynx Normal, Moist Mucous Membranes Neck: Non Tender, Supple Respiratory: Chest Non Tender, Lungs Clear, Normal Breath Sounds, No Accessory Muscle Use, No Respiratory Distress Cardiovascular: Regular Rate, Rhythm, No Edema, No Gallop, No JVD Gastrointestinal: Normal Bowel Sounds, No Organomegaly, No Pulsatile Mass, Non Tender, Soft Rectal: Deferred Extremity: No Pedal Edema, Calf Tenderness (mild) Neurologic/Psychiatric: Alert, Normal Mood/Affect, Disoriented, Facial Droop (left), Motor Weakness (Generalized all extremities but left hand baggage and mail agent decreased and left facial droop 04/21/22) Skin: Normal Color, Warm/Dry Lymphatic: No Adenopathy Results/Procedures Lab Laboratory Tests 04/21/22 05:41 Patient resulted labs reviewed. FIM Transfers Therapy Code Descriptions/Definitions Functional [place] Measure: 0=Not Assessed/NA 4=Minimal Assistance 1=Total Assistance 5=Supervision or Setup 2=Maximal Assistance 6=Modified [place] 3=Moderate Assistance 7=Complete IndependenceSCALE: Activities may be completed with or without assistive devices. 1-Lkwtmbkewo-pgodvxz completes the activity by him/herself with no assistance from a helper. 5-Set-up or Clean-up Assistance-helper sets up or cleans up; patient completes activity. [place] assists only prior to or following the activity. 4-Supervision or Touching Assistance-helper provides verbal cues and/or touching/steadying and/or contact guard assistance as patient completes activit y. Assistance may be provided throughout the activity or intermittently. 3-Partial/Moderate Assistance-helper does LESS THAN HALF the effort. [place] lifts, holds or supports trunk or limbs, but provides less than half the effort. 2-Substantial/Maximal Assistance-helper does MORE THAN HALF the effort. [place] lifts or holds trunk or limbs and provides more than half the effort. 4-Szqeyvrwx-hksaho does ALL the effort. Patient does none of the effort to complete the activity. Or, the assistance of 2 or more helpers is required for the patient to complete the activity. If activity was not attempted, code reason: 7-Patient Refused. 9-Not Applicable-not attempted and the patient did not perform the activity before the current illness, exacerbation or injury. 10-Not Attempted due to Environmental Limitations-(lack of equipment, weather restraints, etc.). 88-Not Attempted due to Medical Conditions or Safety Concerns. Roll Left to Right (QC): 6 Sit to Lying (QC): 6 Sit to Stand (QC): 3 Chair/Xyu-rw-Pyppu Xfer(QC): 3 Car Transfer (QC): 3 Gait Training Does the Patient Walk?: Yes Distance: 6 Walk 10 feet (QC): 4 Walk 50 ft with 2 Turns(QC): 3 Walk 150 ft (QC): 88 Walking 10ft/uneven surface-QC: 4 Gait Persons Needed: 1 Gait Assistive Device: FWW Wheelchair Training Does the Pt Use a Wheelchair?: Yes Distance: 80 Wheel 50 ft with 2 turns (QC): 5 Wheel 150 ft (QC): 4 Type of Wheelchair: Manual Stair Training #of Steps: 12 1 Step (curb) (QC): 4 4 Steps (QC): 3 12 Steps (QC): 2 Balance Picking up an Object (QC): 4 ADL-Treatment Eating (QC): 4 (per clinical judgement) Oral Hygiene (QC): 3 Shower/Bathe Self (QC): 3 Upper Body Dressing (QC): 4 Lower Body Dressing (QC): 3 On/Off Footwear (QC): 2 (dependent to don debbie hose.) Toileting Hygiene (QC): 3 (Assistance for thoroughness and min a for balance during clothing management) Toilet Transfer (QC): 3 Assessment/Plan Assessment and Plan Assess & Plan/Chief Complaint Assessment: 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 but had another episode 04/21/22 with left arm weakness and left facial droop w/u completed along with neuro consult [facility] 2 prior strokes Atrial fibrillation on Coumadin therapy Hypertension Pacemaker Hyperlipidemia Orthostasis causing increased risk for falls Early UTI 04/21/22 Plan: Supportive care Check INR in the morning Restart all home meds Aggressive PT OT ST 04/14/2022: Monitor confusion Bed alarm since fall risk 04/15/2022: Monitor BP Appreciate Dr Garcia 04/16/2022: Supportive care 04/17/2022: Continue treatment 04/18/2022: INR management per Dr Garcia 04/19/2022: Monitor for hematuria 04/20/2022: Monitor INR 04/21/2022: Monitor for additional deficits DNR Updated DPOA Omnicef empirically for abnl UA (1) CVA (cerebral vascular accident) EDDIE YEE DO Apr 21, 2022 06:35
[2022-04-21 08:00] VITALS: BP 157/85
[2022-04-21 08:36] LABS: BASOPHILS # (AUTO) 0.1 10^3/uL (0.0-0.1); BASOPHILS % (AUTO) 1 % (0-10); EOSINOPHILS # (AUTO) 0.7 10^3/uL (0.0-0.3); EOSINOPHILS % (AUTO) 8 % (0-10); HEMATOCRIT 43 % (40-54); HEMOGLOBIN 14.9 g/dL (13.3-17.7); LYMPHOCYTES # (AUTO) 2.1 10^3/uL (1.0-4.0); LYMPHOCYTES % (AUTO) 26 % (12-44); MEAN CORPUSCULAR HEMOGLOBIN 32 pg (25-34); MEAN CORPUSCULAR HGB CONC 35 g/dL (32-36); MEAN CORPUSCULAR VOLUME 94 fL (80-99); MEAN PLATELET VOLUME 11.2 fL (9.0-12.2); MONOCYTES # (AUTO) 0.7 10^3/uL (0.0-1.0); MONOCYTES % (AUTO) 9 % (0-12); NEUTROPHILS # (AUTO) 4.5 10^3/uL (1.8-7.8); NEUTROPHILS % (AUTO) 56 % (42-75); PLATELET COUNT 213 10^3/uL (130-400); WHITE BLOOD COUNT 8.1 10^3/uL (4.3-11.0)
[2022-04-21 08:38] LABS: ALBUMIN 3.5 GM/DL (3.2-4.5)
[2022-04-21 08:41] LABS: TOTAL PROTEIN 6.3 GM/DL (6.4-8.2)
[2022-04-21 08:42] LABS: BILIRUBIN,TOTAL 0.8 MG/DL (0.1-1.0)
[2022-04-21 08:44] LABS: CREATININE SERUM 1.27 MG/DL (0.60-1.30)
--- NOTE | 2022-04-21 08:46 | Diagnostic Imaging Report ---
EXAMINATION: CT head without contrast. TECHNIQUE: Multiple contiguous axial images were obtained through the brain without the use of intravenous contrast. All CT scans use one or more of the following dose optimizing techniques: automated exposure control, MA and/or KvP adjustment based on patient size and exam type or iterative reconstruction. HISTORY: Left arm weakness. Left-sided facial droop. Possible ischemia. COMPARISON: None available. FINDINGS: There is an area of age-indeterminate ischemia in the right parietal region involving the postcentral gyrus. No associated hemorrhage or mass effect. This scattered areas of chronic microvascular disease is seen in the periventricular and subcortical white matter. The ventricles and cortical sulci are prominent. The basilar cisterns are clear. The orbits are normal. Paranasal sinuses are normal. Mastoid air cells are clear. No soft tissue abnormality is seen. No osseus lesions or fractures are seen. IMPRESSION: 1. Area of age-indeterminate ischemia in the right parietal region involving the postcentral gyrus. Findings may represent the patient's history of left-sided symptoms and further evaluation with MRI brain may be considered. No associated hemorrhage or mass effect. 2. Generalized parenchymal volume loss with chronic microvascular disease. Called to [place] at 8:44 a.m. by fabiana. Dictated by: Dictated on workstation # [id number]
[2022-04-21] MEDS: lisINopril 5 MG (PRINIVIL) TABLET PO SCH (09:09)
[2022-04-21] MEDS: DIGOXIN 0.125 MG (LANOXIN) TAB PO SCH (09:09)
[2022-04-21] MEDS: DICLOFENAC 1% GEL 100 GM (VOLTAREN) TUBE TOP SCH ×4 (09:10→20:24)
--- NOTE | 2022-04-21 09:26 | Physical Therapy Daily Note ---
PT Daily Note-Current Subjective Pt. sitting EOB with OT present. PT OT co Rx secondary to pts fragile BP and earlier episode this morning. see nursng notes. Pt. denies pain but states he does not feel well today at all, oc with attempts to stand, "see I dont have any repairing calibrator strength in my left hand Pain Location: No Pain Reported Mental Status Attachments: Other-See Comments (THANH hose donned bilat) Transfers SCALE: Activities may be completed with or without assistive devices. 2-Vkwwzmfdby-trrcmnv completes the activity by him/herself with no assistance from a helper. 5-Set-up or Clean-up Assistance-helper sets up or cleans up; patient completes activity. [place] assists only prior to or following the activity. 4-Supervision or Touching Assistance-helper provides verbal cues and/or touching/steadying and/or contact guard assistance as patient completes activ ity. Assistance may be provided throughout the activity or intermittently. 3-Partial/Moderate Assistance-helper does LESS THAN HALF the effort. [place] lifts, holds or supports trunk or limbs, but provides less than half the effort. 2-Substantial/Maximal Assistance-helper does MORE THAN HALF the effort. [place] lifts or holds trunk or limbs and provides more than half the effort. 1-Oluqfkiuy-lfzhna does ALL the effort. Patient does none of the effort to complete the activity. Or, the assistance of 2 or more helpers is required for the patient to complete the activity. If activity was not attempted, code reason: 7-Patient Refused. 9-Not Applicable-not attempted and the patient did not perform the activity before the current illness, exacerbation or injury. 10-Not Attempted due to Environmental Limitations-(lack of equipment, weather restraints, etc.). 88-Not Attempted due to Medical Conditions or Safety Concerns. sit to stand CGA, sit to sup min Weight Bearing Right Lower Extremity: Right Full Weight Bearing Left Lower Extremity: Left Full Weight Bearing Gait Training pt unable to ambulate, orthostatic hypotension and episode this am that mimics CVA or TIA Treatments pt sitting EOB with BP 155/67, pt. participated in cognitive challenge with OT for card game, donned THANH hose, attempted stance at side of bed to take BP, several attempts with no reading,(usually interpretted by this STEAM CLOTHES PRESS OPERATOR that the pressure is changing quickly and cannot be recorded). pt. did side step to head of bed with CGA, sit to sup min to CGA. Assessment Current Status: Poor Progress episode earlier this date with CT completed, see CT scan. PT Senior Care Goals Senior Care Goals PT Point Of Sale Associate Goals Time Frame: May 12, 2022 Roll Left & Right (QC): 6 Sit to Lying (QC): 6 Lying-Sitting on Side/Bed(QC): 6 Sit to Stand (QC): 6 Chair/Tvu-nd-Ltfot Xfer(QC): 6 Toilet Transfer (QC): 6 Car Transfer (QC): 6 Does the Patient Walk: Yes Walk 10 feet (QC): 6 Walk 50ft with 2 Turns (QC): 6 Walk 150 ft (QC): 4 Walking 10ft on Uneven Surface: 6 1 Step (curb) (QC): 6 4 Steps (QC): 4 12 Steps (QC): 4 Picking up an Object (QC): 6 Does the Pt use WC or Scooter?: No Wheel 50 feet with 2 turns (QC: 88 Wheel 150 feet: 88 PT Plan Treatment/Plan Treatment Plan: Continue Plan of Care Treatment Plan: Bed Mobility, Education, Functional Activity Jenifer, Functional Strength, Group Therapy, Gait, Safety, Therapeutic Exercise, Transfers Treatment Duration: May 12, 2022 Frequency: At least 5 of 7 days/Wk (IRF) Estimated Hrs Per Day: 1.5 hours per day Patient and/or Family Agrees t: Yes Safety Risks/Education Patient Education: Transfer Techniques, Correct Positioning, Safety Issues Teaching Recipient: Patient Response to Teaching: Reinforcement Needed Time/GCodes Time In: 845 Time Out: 915 Total Billed Treatment Time: 30 Total Billed Treatment 1,FA30m (30m co Rx ) CHENCHO MCMAHON STEAM CLOTHES PRESS OPERATOR Apr 21, 2022 09:26
--- NOTE | 2022-04-21 09:32 | Occupational Ther Daily Note ---
OT Current Status-Daily Note Subjective Pt reports significant fatigue and reports having an "awful morning." Pt was unable to give any details. Appearance Pt returned to supine in bed, alarm set, all needs within reach at OT departure. Mental Status/Objective Patient Orientation: Person, Confused ADL-Treatment Therapy Code Descriptions/Definitions Functional [place] Measure: 0=Not Assessed/NA 4=Minimal Assistance 1=Total Assistance 5=Supervision or Setup 2=Maximal Assistance 6=Modified [place] 3=Moderate Assistance 7=Complete IndependenceSCALE: Activities may be completed with or without assistive devices. 1-Ozbxkwykqu-yyrwldl completes the activity by him/herself with no assistance from a helper. 5-Set-up or Clean-up Assistance-helper sets up or cleans up; patient completes activity. [place] assists only prior to or following the activity. 4-Supervision or Touching Assistance-helper provides verbal cues and/or touching/steadying and/or contact guard assistance as patient completes activity. Assistance may be provided throughout the activity or intermittently. 3-Partial/Moderate Assistance-helper does LESS THAN HALF the effort. [place] lifts, holds or supports trunk or limbs, but provides less than half the effort. 2-Substantial/Maximal Assistance-helper does MORE THAN HALF the effort. [place] lifts or holds trunk or limbs and provides more than half the effort. 7-Kbysnpzmg-yjivkr does ALL the effort. Patient does none of the effort to complete the activity. Or, the assistance of 2 or more helpers is required for the patient to complete the activity. If activity was not attempted, code reason: 7-Patient Refused. 9-Not Applicable-not attempted and the patient did not perform the activity before the current illness, exacerbation or injury. 10-Not Attempted due to Environmental Limitations-(lack of equipment, weather restraints, etc.). 88-Not Attempted due to Medical Conditions or Safety Concerns. On/Off Footwear: 1 Toileting Hygiene (QC): 2 Other Treatment Rapid response called on patient ~1 hour before start of OT treatment. RN reports that physician called off rapid response and stated that pt could c ontinue with therapy for the day. BP in supine (124/77, pulse-77 bpm) Sitting (132/69, pulse-72 bpm). Pt refuses all adls because he "just doesn't want to." Agreeable to therapeutic activity at side of bed to address activity tolerance, BUE strength, functional reaching, and overall endurance needed for adls. OT introduced pt to novel card game. Post instruction, Min-mod verbal cues still required for recall of rules and strategic game plays. Pt often having difficulty grasping more than 2-3 cards at a time, thus OT held cards as pt grasped and placed 1 card at a time. Eye patched donned and remained on throughout game. No c/o visual difficulties during game play. BP after ~15 minutes of activity (143/63, pulse 72 bpm). Pt reports enjoyment of game at end of treatment. Attempt at receiving standing BP, however unable to get accurate reading. Post standing, pt with increased L sided facial droop and inability to make fist with L hand. RN notified. Pt returned to bed. Education OT Patient Education: Correct positioning, Modified ADL techniques, Progress toward Goal/Update tx plan, Purpose of tx/functional activities, Rehab process, Safety issues, Transfer techniques Teaching Recipient: Patient Teaching Methods: Discussion Response to Teaching: Reinforcement Needed OT Short Term Goals Short Term Goals Time Frame: Apr 25, 2022 Eatin Oral hygiene: 4 Toileting hygiene: 3 Shower/bathe self: 3 Upper body dressin Lower body dressin Putting on/taking off footwear: 4 OT Dot Etcher Goals Dot [place] Goals Time Frame: May 04, 2022 Eating (QC): 5 Oral Hygiene (QC): 5 Toileting Hygiene (QC): 6 Shower/Bathe Self (QC): 5 Upper Body Dressing (QC): 6 Lower Body Dressing (QC): 6 On/Off Footwear (QC): 5 Additional Goals: 1-Demonstrate ADL Tasks, 2-Verbalize Understanding, 3- ImproveStrength/Jenifer 1=Demonstrate adherence to instructed precautions during ADL tasks. 2=Patient will verbalize/demonstrate understanding of assistive devices/modifications for ADL. 3=Patient will improve strength/tolerance for activity to enable patient to perform ADL's. OT Education/Plan Problem List/Assessment Assessment: Decreased Activ Tolerance, Decreased Safety Aware, Decreased UE Strength, Impaired Cognition, Impaired Coordination, Impaired Funct Balance, Impaired Self-Care Skills, Restricted Funct UE ROM Discharge Recommendations Plan/Recommendations: Continue POC Therapy Discharge Recommendati: Post Acute OT Treatment Plan/Plan of Care Treatment,Training & Education: Yes Patient would benefit from OT for education, treatment and training to promote independence in ADL's, mobility, safety and/or upper extremity function for ADL's. Plan of Care: ADL Retraining, Caregiver Training, Cognitive Retraining, Concurrent Therapy, Functional Mobility, Group Exercise/Act as Ind, UE Funct Exercise/Act, UE Neuromus Re-Ed/Coord, Visual/Perceptual Retrain, W/C Management Training Treatment Duration: May 04, 2022 Frequency: At least 5 of 7 days/Wk (IRF) Estimated Hrs Per Day: 1.5 hours per day (75-90 minutes) Agreement: Yes Rehab Potential: Guarded Time/GCodes Start Time: 08:30 Stop Time: 09:30 Total Time Billed (hr/min): 60 Billed Treatment Time 1 visit ADL (10 min) FA x3 (50 min) Co-treat with PT from ([phone]) Lissett Worley OT Apr 21, 2022 09:32
--- NOTE | 2022-04-21 09:33 | Speech Therapy Daily Note ---
Speech Daily Progress Note Subjective Date Seen by Provider: Apr 24, 2022 Time Seen by Provider: 09:30 The patient was lying in his recliner, sleeping upon entrance to his room by the clinician. The patient woke with moderate clinician verbal cueing, however, remained fatigued throughout the treatment session. Objective The clinician provided education and discussion regarding the patient's nectar- thick liquids. The clinician reviewed where to purchase thickening agents and how to mix the liquids appropriately. The patient verbalized comprehension of the material and completed "teach back" to the clinician. The clinician also reviewed and practiced the patient's dysphagia exercises with high accuracy. The patient remains independently oriented to self, location, month, day of the week, and date. Expression of Ideas/Wants: Exhibits (3) Understanding Verbal Content: Usually Understands (3) Brief Interview-Mental Status: Yes Repetition of Three Words: Three (3) Temporal Orientation: Year: Correct (3) Temporal Orientation: Month: Accurate within 5 days(2) Temporal Orientation: Day: Correct (1) Recall : Wear to say "Sock": No, with cue (0) Recall : Color: Yes, no cue required (2) Recall : Bed: Yes,after cueing (1) Memory/Recall Ability: Current season, Location of own room, Staff names and faces, That he or she is in a hsp/hsp unit Assessment Assessment Current Status: Fair Progress Treatment Plan Continue Plan of Care Speech Short Term Goals Short Term Goals Short Term Goals 1. The patient will follow safe swallowing strategies with 90% accuracy and mild clinician verbal cueing and direct modeling. 2. The patient will demonstrate 75% accuracy with memory exercises with mild clinician verbal cueing. Time Frame-STG: Five Days. Speech Correction Goals Correction Goals 1. The patient will tolerate the least restrictive diet consistency without overt s/s of suspected aspiration. 2. The patient will demonstrate improved cognitive linguistic skills for safe discharge to the least restrictive environment. Time Frame: Ten Days. Speech-Plan Treatment Plan Speech Therapy Treatment Plan: Continue Plan of Care Treatment Duration: Apr 14, 2022 Frequency: Modified Program (IRF) Estimated Hrs Per Day: .5 hour per day Rehab Potential: Guarded Safety Risks/Education Teaching Recipient: Patient Teaching Methods: Discussion Response to Teaching: Reinforcement Needed Education Topics Provided: Plan of Care, Recommendations Time Speech Therapy Time In: 09:30 Speech Therapy Time Out: 10:00 Total Billed Time: 30 Billed Treatment Time 1, [place], MARCIE Mcgovern Apr 21, 2022 09:33
[2022-04-21] MEDS: SENNA W/DOCUSATE (SENOKOT S) TABLET PO SCH ×2 (10:30→20:23)
[2022-04-21] MEDS: DOCUSATE SODIUM 100 MG (COLACE) CAP PO SCH ×2 (10:30→20:23)
[2022-04-21] MEDS: polyethylene glycoL POWDER 17 GM (MIRALAX) PACK PO SCH ×2 (10:30→20:23)
[2022-04-21] MEDS: OFLOXACIN 0.3% OPHTH SOLN 5 ML OP SCH ×4 (10:30→20:24)
[2022-04-21 12:20] LABS: BILIRUBIN,URINE NEGATIVE (NEGATIVE); CLARITY,URINE CLEAR; COLOR,URINE YELLOW; GLUCOSE, URINE (UA) NEGATIVE (NEGATIVE); KETONES,URINE NEGATIVE (NEGATIVE); LEUKOCYTE ESTERASE ,URINE 1+ (NEGATIVE); NITRITE,URINE NEGATIVE (NEGATIVE); PROTEIN,URINE NEGATIVE (NEGATIVE)
[2022-04-21 12:31] LABS: BACTERIA,URINE MODERATE /HPF; RBC,URINE 0-2 /HPF; WBC,URINE 25-50 /HPF
--- NOTE | 2022-04-21 12:39 | Diagnostic Imaging Report ---
PROCEDURE: US carotid duplex, bilateral. TECHNIQUE: Multiple real-time grayscale images were obtained over the carotid arteries in various projections, bilaterally. Additional spectral analysis and color Doppler duplex images were also obtained. INDICATION: Hypertension. Dizziness. Concern for stroke. COMPARISON: None. FINDINGS: Right carotid circulation: The right common carotid artery is normal in course and caliber. Atherosclerotic plaque is seen in the right carotid bulb and proximal right internal carotid artery. No hemodynamically significant stenosis is present. Left carotid circulation: The left common carotid artery is normal in course and caliber. Atherosclerotic plaque is seen throughout the left carotid system. No hemodynamically significant stenosis is present. Flow in the bilateral vertebral arteries is antegrade. IMPRESSION: 1. Mild to moderate atherosclerosis involving the bilateral carotid systems. 2. No sonographic evidence of hemodynamically significant stenosis based on flow velocity criteria. Parameters based on the consensus panel Roca-Scale and Doppler ultrasound criteria published June 2003, Radiology, Volume 229. DOPPLER (peak systolic velocity M/S Right Left CCA .59 1.1 ICA Proximal .48 .88 ICA Mid 1.1 .62 ICA Distal .45 .46 RATIO 1.8 .84 ECA .83 .81 VERT .28 .24 Dictated by: Dictated on workstation # [id number]
--- NOTE | 2022-04-21 14:33 | Physical Therapy Progress Note ---
Therapy Progress Note Pt. in bed , nurse present. Pt. with grimace on face declines joining group PT OT session. Pt. sighs deeply and moans and declines all offers for activity . Nursing reports pt. had yet another episode during group session of unresponsiveness that nurse referred to as TIA. No PM Rx, pt. unable to participate. Geoffrey,CHENCHO PEDERSEN PTA Apr 21, 2022 14:33
[2022-04-21] MEDS: warFARin 5 MG (COUMADIN) TAB PO SCH (17:31)
[2022-04-21 20:00] VITALS: BP 131/68
[2022-04-21] MEDS: ASPIRIN 81 MG CHEW (CHILDREN'S ASA) PO SCH (20:22)
[2022-04-21] MEDS: ALPRAZolam 0.25 MG (XANAX) TAB PO PRN (20:22)
[2022-04-21] MEDS: HYDROcodone/APAP 7.5 MG/325 MG (LORTAB, LORCET PLUS) TABLET PO PRN (20:23)
[2022-04-21] MEDS: CEFDINIR 300 MG (OMNICEF) CAP PO SCH (22:23)
[2022-04-21] MEDS: MELATONIN 3 MG TABLET PO PRN (22:25)
[2022-04-22 06:49] LABS: INR 2.6 (0.8-1.4); PROTHROMBIN TIME PATIENT 28.1 SEC (12.2-14.7)
--- NOTE | 2022-04-22 07:26 | PM&R Progress Note ---
Subjective HPI/CC On Admission Date Seen by Provider: Apr 22, 2022 Time Seen by Provider: 10:00 Subjective/Events-last exam 04/22/2022: Having a better day Orthostasis episodes are still occurring No falls but increased risk DNR 04/21/2022: Had a major event this morning with left arm weakness, left facial droop, and obvious neurological deficit CT scan without showed no bleed INR was 2.3 Carotid US showed bilateral 50% or less Spoke with cardiology Spoke with stroke neurology, they agree nothing more to do unless he continues to have strokes MRI could be done but he has a pacemaker Speech has made no changes with dysphagia 2 diet Abnl UA noted 04/20/2022: No major issues RN has no concerns Increased ambulatory function 04/19/2022: Pt is doing pretty well Had some insomnia last night BP is labile Orthostatic hypotension limits the medication Updated Dr. Garcia, who is managing the INR 04/18/2022: No major events last night No pain Moving around well 04/17/2022: No major issues No pain reported Checked meds and labs 04/16/2022: Patient seems to be doing well Poor memory recall No pain reported 04/15/2022: Doing well Had orthostasis yesterday and Dr Garcia adjusted meds Patient denies pain No falls 04/14/2022: Pt is doing pretty well He is a bit confused Bed alarm on for fall risk Checked meds and labs No falls Review of Systems Neurological: Weakness, Incoordination Objective Exam Vital Signs Vital Signs Date Time Temp Pulse Resp B/P (MAP) Pulse Ox O2 Delivery O2 Flow Rate FiO2 04/22/22 20:04 36.3 91 16 148/73 (98) 95 Room Air Capillary Refill : General Appearance: No Apparent Distress, WD/WN, Chronically ill, Thin HEENT: PERRL/EOMI, Normal ENT Inspection, Pharynx Normal, Moist Mucous Membranes Neck: Non Tender, Supple Respiratory: Chest Non Tender, Lungs Clear, Normal Breath Sounds, No Accessory Muscle Use, No Respiratory Distress Cardiovascular: Regular Rate, Rhythm, No Edema, No Gallop, No JVD Gastrointestinal: Normal Bowel Sounds, No Organomegaly, No Pulsatile Mass, Non Tender, Soft Rectal: Deferred Extremity: No Pedal Edema, Calf Tenderness (mild) Neurologic/Psychiatric: Alert, Normal Mood/Affect, Disoriented, Facial Droop (left), Motor Weakness (Generalized all extremities but 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 FIM Transfers Therapy Code Descriptions/Definitions Functional [place] Measure: 0=Not Assessed/NA 4=Minimal Assistance 1=Total Assistance 5=Supervision or Setup 2=Maximal Assistance 6=Modified [place] 3=Moderate Assistance 7=Complete IndependenceSCALE: Activities may be completed with or without assistive devices. 4-Rmyepqzryb-vfiymct completes the activity by him/herself with no assistance from a helper. 5-Set-up or Clean-up Assistance-helper sets up or cleans up; patient completes activity. [place] assists only prior to or following the activity. 4-Supervision or Touching Assistance-helper provides verbal cues and/or touching/steadying and/or contact guard assistance as patient completes activity. Assistance may be provided throughout the activity or intermittently. 3-Partial/Moderate Assistance-helper does LESS THAN HALF the effort. [place] lifts, holds or supports trunk or limbs, but provides less than half the effort. 2-Substantial/Maximal Assistance-helper does MORE THAN HALF the effort. [place] lifts or holds trunk or limbs and provides more than half the effort. 3-Oqeqfscfh-yhtjkk does ALL the effort. Patient does none of the effort to complete the activity. Or, the assistance of 2 or more helpers is required for the patient to complete the activity. If activity was not attempted, code reason: 7-Patient Refused. 9-Not Applicable-not attempted and the patient did not perform the activity before the current illness, exacerbation or injury. 10-Not Attempted due to Environmental Limitations-(lack of equipment, weather restraints, etc.). 88-Not Attempted due to Medical Conditions or Safety Concerns. Roll Left to Right (QC): 6 Sit to Lying (QC): 6 Sit to Stand (QC): 3 Chair/Kir-hj-Nmrnx Xfer(QC): 3 Car Transfer (QC): 3 Gait Training Does the Patient Walk?: Yes Distance: 6 Walk 10 feet (QC): 4 Walk 50 ft with 2 Turns(QC): 3 Walk 150 ft (QC): 88 Walking 10ft/uneven surface-QC: 4 Gait Persons Needed: 1 Gait Assistive Device: FWW Wheelchair Training Does the Pt Use a Wheelchair?: Yes Distance: 80 Wheel 50 ft with 2 turns (QC): 5 Wheel 150 ft (QC): 4 Type of Wheelchair: Manual Stair Training #of Steps: 12 1 Step (curb) (QC): 4 4 Steps (QC): 3 12 Steps (QC): 2 Balance Picking up an Object (QC): 4 ADL-Treatment Eating (QC): 4 (per clinical judgement) Oral Hygiene (QC): 3 Shower/Bathe Self (QC): 3 Upper Body Dressing (QC): 4 Lower Body Dressing (QC): 3 On/Off Footwear (QC): 1 Toileting Hygiene (QC): 2 Toilet Transfer (QC): 3 Assessment/Plan Assessment and Plan Assess & Plan/Chief Complaint Assessment: 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 but had another episode 04/21/22 with left arm weakness and left facial droop w/u completed along with neuro consult [facility] 2 prior strokes Atrial fibrillation on Coumadin therapy Hypertension Pacemaker Hyperlipidemia Orthostasis causing increased risk for falls Early UTI 04/21/22 Plan: Supportive care Check INR in the morning Restart all home meds Aggressive PT OT ST 04/14/2022: Monitor confusion Bed alarm since fall risk 04/15/2022: Monitor BP Appreciate Dr Garcia 04/16/2022: Supportive care 04/17/2022: Continue treatment 04/18/2022: INR management per Dr Garcia 04/19/2022: Monitor for hematuria 04/20/2022: Monitor INR 04/21/2022: Monitor for additional deficits DNR Updated DPOA Omnicef empirically for abnl UA 04/22/2022: Add Amoxil Cefdinir (1) CVA (cerebral vascular accident) EDDIE YEE DO Apr 22, 2022 07:26
[2022-04-22 07:30] VITALS: BP 113/72
[2022-04-22] MEDS: CEFDINIR 300 MG (OMNICEF) CAP PO SCH (09:15)
[2022-04-22] MEDS: DOCUSATE SODIUM 100 MG (COLACE) CAP PO SCH ×2 (09:16→20:46)
[2022-04-22] MEDS: SENNA W/DOCUSATE (SENOKOT S) TABLET PO SCH ×2 (09:16→20:47)
[2022-04-22] MEDS: DIGOXIN 0.125 MG (LANOXIN) TAB PO SCH (09:17)
[2022-04-22] MEDS: lisINopril 5 MG (PRINIVIL) TABLET PO SCH (09:17)
[2022-04-22] MEDS: DICLOFENAC 1% GEL 100 GM (VOLTAREN) TUBE TOP SCH ×4 (09:20→20:46)
[2022-04-22] MEDS: polyethylene glycoL POWDER 17 GM (MIRALAX) PACK PO SCH ×2 (09:20→20:46)
[2022-04-22] MEDS: OFLOXACIN 0.3% OPHTH SOLN 5 ML OP SCH ×4 (09:21→20:46)
--- NOTE | 2022-04-22 12:09 | Physical Therapy Daily Note ---
PT Daily Note-Current Subjective Pt. declines out of bed, "Mariah already been there" Agrees to therex in bed and sitting up for lunch in bed Pain Location: No Pain Reported Transfers SCALE: Activities may be completed with or without assistive devices. 0-Gvwkawjlvw-bhoilrs completes the activity by him/herself with no assistance from a helper. 5-Set-up or Clean-up Assistance-helper sets up or cleans up; patient completes activity. [place] assists only prior to or following the activity. 4-Supervision or Touching Assistance-helper provides verbal cues and/or touching/steadying and/or contact guard assistance as patient completes activity. Assistance may be provided throughout the activity or intermittently. 3-Partial/Moderate Assistance-helper does LESS THAN HALF the effort. [place] lifts, holds or supports trunk or limbs, but provides less than half the effort. 2-Substantial/Maximal Assistance-helper does MORE THAN HALF the effort. [place] lifts or holds trunk or limbs and provides more than half the effort. 3-Rlmxcigah-ukqaks does ALL the effort. Patient does none of the effort to complete the activity. Or, the assistance of 2 or more helpers is required for the patient to complete the activity. If activity was not attempted, code reason: 7-Patient Refused. 9-Not Applicable-not attempted and the patient did not perform the activity before the current illness, exacerbation or injury. 10-Not Attempted due to Environmental Limitations-(lack of equipment, weather restraints, etc.). 88-Not Attempted due to Medical Conditions or Safety Concerns. rolling left and right and pushed himself up in bed with instruction Weight Bearing Right Lower Extremity: Right Full Weight Bearing Left Lower Extremity: Left Full Weight Bearing Exercises Supine Ex: Bridging, Ankle pumps, Quad Set, Rolling, Glut sets, Heel Slides, Scooting, Straight leg raise, Hip abd/add Supine Reps: 15 Treatments sup LE ex , sat up in bed and assisted set up for lunch Assessment Current Status: Fair Progress PT Assisted Goals Assisted Goals PT Validation Architect Goals Time Frame: May 12, 2022 Roll Left & Right (QC): 6 Sit to Lying (QC): 6 Lying-Sitting on Side/Bed(QC): 6 Sit to Stand (QC): 6 Chair/Phu-qe-Rzdpr Xfer(QC): 6 Toilet Transfer (QC): 6 Car Transfer (QC): 6 Does the Patient Walk: Yes Walk 10 feet (QC): 6 Walk 50ft with 2 Turns (QC): 6 Walk 150 ft (QC): 4 Walking 10ft on Uneven Surface: 6 1 Step (curb) (QC): 6 4 Steps (QC): 4 12 Steps (QC): 4 Picking up an Object (QC): 6 Does the Pt use WC or Scooter?: No Wheel 50 feet with 2 turns (QC: 88 Wheel 150 feet: 88 PT Plan Treatment/Plan Treatment Plan: Continue Plan of Care Treatment Plan: Bed Mobility, Education, Functional Activity Jenifer, Functional Strength, Group Therapy, Gait, Safety, Therapeutic Exercise, Transfers Treatment Duration: May 12, 2022 Frequency: At least 5 of 7 days/Wk (IRF) Estimated Hrs Per Day: 1.5 hours per day Patient and/or Family Agrees t: Yes Safety Risks/Education Patient Education: Correct Positioning Teaching Recipient: Patient Teaching Methods: Discussion Response to Teaching: Verbalize Understanding, Return Demonstration, Reinforcement Needed Time/GCodes Time In: 1155 Time Out: 1205 Total Billed Treatment Time: 10 Total Billed Treatment 1,EX10m CHENCHO MCMAHON PTA Apr 22, 2022 12:09
[2022-04-22] MEDS: AMOXICILLIN 500 MG (POLYMOX) CAP PO SCH ×2 (13:34→20:45)
[2022-04-22] MEDS: warFARin 5 MG (COUMADIN) TAB PO SCH (17:37)
[2022-04-22 20:04] VITALS: BP 148/73
[2022-04-22] MEDS: ASPIRIN 81 MG CHEW (CHILDREN'S ASA) PO SCH (20:45)
[2022-04-23] MEDS: ALPRAZolam 0.25 MG (XANAX) TAB PO PRN ×2 (00:04→21:43)
[2022-04-23 07:33] LABS: INR 2.7 (0.8-1.4); PROTHROMBIN TIME PATIENT 28.8 SEC (12.2-14.7)
[2022-04-23 08:00] VITALS: BP 122/68
--- NOTE | 2022-04-23 08:02 | PM&R Progress Note ---
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 Left facial droop improved also 04/22/2022: Having a better day Orthostasis episodes are still occurring No falls but increased risk DNR 04/21/2022: Had a major event this morning with left arm weakness, left facial droop, and obvious neurological deficit CT scan without showed no bleed INR was 2.3 Carotid US showed bilateral 50% or less Spoke with cardiology Spoke with stroke neurology, they agree nothing more to do unless he continues to have strokes MRI could be done but he has a pacemaker Speech has made no changes with dysphagia 2 diet Abnl UA noted 04/20/2022: No major issues RN has no concerns Increased ambulatory function 04/19/2022: Pt is doing pretty well Had some insomnia last night BP is labile Orthostatic hypotension limits the medication Updated Dr. Garcia, who is managing the INR 04/18/2022: No major events last night No pain Moving around well 04/17/2022: No major issues No pain reported Checked meds and labs 04/16/2022: Patient seems to be doing well Poor memory recall No pain reported 04/15/2022: Doing well Had orthostasis yesterday and Dr Garcia adjusted meds Patient denies pain No falls 04/14/2022: Pt is doing pretty well He is a bit confused Bed alarm on for fall risk Checked meds and labs No falls Objective Exam Vital Signs Vital Signs Date Time Temp Pulse Resp B/P (MAP) Pulse Ox O2 Delivery O2 Flow Rate FiO2 04/23/22 09:00 Room Air 04/23/22 08:00 36.4 69 18 122/68 (86) 96 Capillary Refill : General Appearance: No Apparent Distress, WD/WN, Chronically ill, Thin HEENT: PERRL/EOMI, Normal ENT Inspection, Pharynx Normal, Moist Mucous Membranes Neck: Non Tender, Supple Respiratory: Chest Non Tender, Lungs Clear, Normal Breath Sounds, No Accessory Muscle Use, No Respiratory Distress Cardiovascular: Regular Rate, Rhythm, No Edema, No Gallop, No JVD Gastrointestinal: Normal Bowel Sounds, No Organomegaly, No Pulsatile Mass, Non Tender, Soft Rectal: Deferred Extremity: No Pedal Edema, Calf Tenderness (mild) Neurologic/Psychiatric: Alert, Normal Mood/Affect, Disoriented, Facial Droop (left), Motor Weakness (Generalized all extremities but 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 FIM Transfers Therapy Code Descriptions/Definitions Functional [place] Measure: 0=Not Assessed/NA 4=Minimal Assistance 1=Total Assistance 5=Supervision or Setup 2=Maximal Assistance 6=Modified [place] 3=Moderate Assistance 7=Complete IndependenceSCALE: Activities may be completed with or without assistive devices. 7-Kbgivispku-jlxzcba completes the activity by him/herself with no assistance from a helper. 5-Set-up or Clean-up Assistance-helper sets up or cleans up; patient completes activity. [place] assists only prior to or following the activity. 4-Supervision or Touching Assistance-helper provides verbal cues and/or touching/steadying and/or contact guard assistance as patient completes activity. Assistance may be provided throughout the activity or intermittently. 3-Partial/Moderate Assistance-helper does LESS THAN HALF the effort. [place] lifts, holds or supports trunk or limbs, but provides less than half the effort. 2-Substantial/Maximal Assistance-helper does MORE THAN HALF the effort. [place] lifts or holds trunk or limbs and provides more than half the effort. 5-Iqsrtopbj-tpwjgh does ALL the effort. Patient does none of the effort to complete the activity. Or, the assistance of 2 or more helpers is required for the patient to complete the activity. If activity was not attempted, code reason: 7-Patient Refused. 9-Not Applicable-not attempted and the patient did not perform the activity before the current illness, exacerbation or injury. 10-Not Attempted due to Environmental Limitations-(lack of equipment, weather restraints, etc.). 88-Not Attempted due to Medical Conditions or Safety Concerns. Roll Left to Right (QC): 6 Sit to Lying (QC): 6 Sit to Stand (QC): 3 Chair/Btt-qz-Uuigb Xfer(QC): 3 Car Transfer (QC): 3 Gait Training Does the Patient Walk?: Yes Distance: 6 Walk 10 feet (QC): 4 Walk 50 ft with 2 Turns(QC): 3 Walk 150 ft (QC): 88 Walking 10ft/uneven surface-QC: 4 Gait Persons Needed: 1 Gait Assistive Device: FWW Wheelchair Training Does the Pt Use a Wheelchair?: Yes Distance: 80 Wheel 50 ft with 2 turns (QC): 5 Wheel 150 ft (QC): 4 Type of Wheelchair: Manual Stair Training #of Steps: 12 1 Step (curb) (QC): 4 4 Steps (QC): 3 12 Steps (QC): 2 Balance Picking up an Object (QC): 4 ADL-Treatment Eating (QC): 4 (per clinical judgement) Oral Hygiene (QC): 3 Shower/Bathe Self (QC): 3 Upper Body Dressing (QC): 4 Lower Body Dressing (QC): 3 On/Off Footwear (QC): 1 Toileting Hygiene (QC): 2 Toilet Transfer (QC): 3 Assessment/Plan Assessment and Plan Assess & Plan/Chief Complaint Assessment: 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 but had another episode 04/21/22 with left arm weakness and left facial droop w/u completed along with neuro consult [facility] 2 prior strokes Atrial fibrillation on Coumadin therapy Hypertension Pacemaker Hyperlipidemia Orthostasis causing increased risk for falls Early UTI 04/21/22 Plan: Supportive care Check INR in the morning Restart all home meds Aggressive PT OT ST 04/14/2022: Monitor confusion Bed alarm since fall risk 04/15/2022: Monitor BP Appreciate Dr Garcia 04/16/2022: Supportive care 04/17/2022: Continue treatment 04/18/2022: INR management per Dr Garcia 04/19/2022: Monitor for hematuria 04/20/2022: Monitor INR 04/21/2022: Monitor for additional deficits DNR Updated DPOA Omnicef empirically for abnl UA 04/22/2022: Add Amoxil Cefdinir 04/23/2022: Improved cva symptoms DC Cefdinir (1) CVA (cerebral vascular accident) EDDIE YEE DO Apr 23, 2022 08:02
[2022-04-23] MEDS: AMOXICILLIN 500 MG (POLYMOX) CAP PO SCH ×3 (08:15→20:38)
[2022-04-23] MEDS: SENNA W/DOCUSATE (SENOKOT S) TABLET PO SCH ×2 (08:15→20:39)
[2022-04-23] MEDS: polyethylene glycoL POWDER 17 GM (MIRALAX) PACK PO SCH ×2 (08:16→20:38)
[2022-04-23] MEDS: DOCUSATE SODIUM 100 MG (COLACE) CAP PO SCH ×2 (08:16→20:38)
[2022-04-23] MEDS: OFLOXACIN 0.3% OPHTH SOLN 5 ML OP SCH ×4 (08:22→20:38)
[2022-04-23] MEDS: DICLOFENAC 1% GEL 100 GM (VOLTAREN) TUBE TOP SCH ×4 (08:22→20:38)
[2022-04-23] MEDS: DIGOXIN 0.125 MG (LANOXIN) TAB PO SCH (08:23)
[2022-04-23] MEDS: lisINopril 5 MG (PRINIVIL) TABLET PO SCH (08:23)
[2022-04-23] MEDS: warFARin 5 MG (COUMADIN) TAB PO SCH (17:53)
[2022-04-23] MEDS: ASPIRIN 81 MG CHEW (CHILDREN'S ASA) PO SCH (20:38)
[2022-04-23 20:42] VITALS: BP 121/75
[2022-04-24 05:37] LABS: INR 2.4 (0.8-1.4)
--- NOTE | 2022-04-24 06:07 | PM&R Progress Note ---
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 Left facial droop improved also 04/22/2022: Having a better day Orthostasis episodes are still occurring No falls but increased risk DNR 04/21/2022: Had a major event this morning with left arm weakness, left facial droop, and obvious neurological deficit CT scan without showed no bleed INR was 2.3 Carotid US showed bilateral 50% or less Spoke with cardiology Spoke with stroke neurology, they agree nothing more to do unless he continues to have strokes MRI could be done but he has a pacemaker Speech has made no changes with dysphagia 2 diet Abnl UA noted 04/20/2022: No major issues RN has no concerns Increased ambulatory function 04/19/2022: Pt is doing pretty well Had some insomnia last night BP is labile Orthostatic hypotension limits the medication Updated Dr. Garcia, who is managing the INR 04/18/2022: No major events last night No pain Moving around well 04/17/2022: No major issues No pain reported Checked meds and labs 04/16/2022: Patient seems to be doing well Poor memory recall No pain reported 04/15/2022: Doing well Had orthostasis yesterday and Dr Garcia adjusted meds Patient denies pain No falls 04/14/2022: Pt is doing pretty well He is a bit confused Bed alarm on for fall risk Checked meds and labs No falls Review of Systems General: Fatigue, Malaise Objective Exam Vital Signs Vital Signs Date Time Temp Pulse Resp B/P (MAP) Pulse Ox O2 Delivery O2 Flow Rate FiO2 04/25/22 01:23 70 04/24/22 20:45 Room Air 04/24/22 19:56 36.3 20 138/75 (96) 96 Capillary Refill : General Appearance: No Apparent Distress, WD/WN, Chronically ill, Thin HEENT: PERRL/EOMI, Normal ENT Inspection, Pharynx Normal, Moist Mucous Membranes Neck: Non Tender, Supple Respiratory: Chest Non Tender, Lungs Clear, Normal Breath Sounds, No Accessory Muscle Use, No Respiratory Distress Cardiovascular: Regular Rate, Rhythm, No Edema, No Gallop, No JVD Gastrointestinal: Normal Bowel Sounds, No Organomegaly, No Pulsatile Mass, Non Tender, Soft Rectal: Deferred Extremity: No Pedal Edema, Calf Tenderness (mild) Neurologic/Psychiatric: Alert, Normal Mood/Affect, Disoriented, Facial Droop (left), Motor Weakness (Generalized all extremities but 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 FIM Transfers Therapy Code Descriptions/Definitions Functional [place] Measure: 0=Not Assessed/NA 4=Minimal Assistance 1=Total Assistance 5=Supervision or Setup 2=Maximal Assistance 6=Modified [place] 3=Moderate Assistance 7=Complete IndependenceSCALE: Activities may be completed with or without assistive devices. 9-Gkispbnanc-tlhnwyk completes the activity by him/herself with no assistance from a helper. 5-Set-up or Clean-up Assistance-helper sets up or cleans up; patient completes activity. [place] assists only prior to or following the activity. 4-Supervision or Touching Assistance-helper provides verbal cues and/or touching/steadying and/or contact guard assistance as patient completes activity. Assistance may be provided throughout the activity or intermittently. 3-Partial/Moderate Assistance-helper does LESS THAN HALF the effort. [place] lifts, holds or supports trunk or limbs, but provides less than half the effort. 2-Substantial/Maximal Assistance-helper does MORE THAN HALF the effort. [place] lifts or holds trunk or limbs and provides more than half the effort. 4-Hxbppatxw-objmjw does ALL the effort. Patient does none of the effort to complete the activity. Or, the assistance of 2 or more helpers is required for the patient to complete the activity. If activity was not attempted, code reason: 7-Patient Refused. 9-Not Applicable-not attempted and the patient did not perform the activity before the current illness, exacerbation or injury. 10-Not Attempted due to Environmental Limitations-(lack of equipment, weather restraints, etc.). 88-Not Attempted due to Medical Conditions or Safety Concerns. Roll Left to Right (QC): 6 Sit to Lying (QC): 6 Sit to Stand (QC): 3 Chair/Pmk-py-Kpslk Xfer(QC): 3 Car Transfer (QC): 3 Gait Training Does the Patient Walk?: Yes Distance: 6 Walk 10 feet (QC): 4 Walk 50 ft with 2 Turns(QC): 3 Walk 150 ft (QC): 88 Walking 10ft/uneven surface-QC: 4 Gait Persons Needed: 1 Gait Assistive Device: FWW Wheelchair Training Does the Pt Use a Wheelchair?: Yes Distance: 80 Wheel 50 ft with 2 turns (QC): 5 Wheel 150 ft (QC): 4 Type of Wheelchair: Manual Stair Training #of Steps: 12 1 Step (curb) (QC): 4 4 Steps (QC): 3 12 Steps (QC): 2 Balance Picking up an Object (QC): 4 ADL-Treatment Eating (QC): 4 (per clinical judgement) Oral Hygiene (QC): 3 Shower/Bathe Self (QC): 3 Upper Body Dressing (QC): 4 Lower Body Dressing (QC): 3 On/Off Footwear (QC): 1 Toileting Hygiene (QC): 2 Toilet Transfer (QC): 3 Assessment/Plan Assessment and Plan Assess & Plan/Chief Complaint Assessment: 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 but had another episode 04/21/22 with left arm weakness and left facial droop w/u completed along with neuro consult [facility] 2 prior strokes Atrial fibrillation on Coumadin therapy Hypertension Pacemaker Hyperlipidemia Orthostasis causing increased risk for falls UTI 04/21/22 Enterococcus Plan: Supportive care Check INR in the morning Restart all home meds Aggressive PT OT ST 04/14/2022: Monitor confusion Bed alarm since fall risk 04/15/2022: Monitor BP Appreciate Dr Garcia 04/16/2022: Supportive care 04/17/2022: Continue treatment 04/18/2022: INR management per Dr Garcia 04/19/2022: Monitor for hematuria 04/20/2022: Monitor INR 04/21/2022: Monitor for additional deficits DNR Updated DPOA Omnicef empirically for abnl UA 04/22/2022: Add Amoxil Cefdinir 04/23/2022: Improved cva symptoms DC Cefdinir 04/24/2022: Monitor INR (1) CVA (cerebral vascular accident) EDDIE YEE DO Apr 24, 2022 06:07
[2022-04-24 08:10] VITALS: BP 120/76
[2022-04-24] MEDS: SENNA W/DOCUSATE (SENOKOT S) TABLET PO SCH ×2 (08:11→21:00)
[2022-04-24] MEDS: DIGOXIN 0.125 MG (LANOXIN) TAB PO SCH (08:11)
[2022-04-24] MEDS: DOCUSATE SODIUM 100 MG (COLACE) CAP PO SCH ×2 (08:11→21:00)
[2022-04-24] MEDS: polyethylene glycoL POWDER 17 GM (MIRALAX) PACK PO SCH ×2 (08:11→21:00)
[2022-04-24] MEDS: lisINopril 5 MG (PRINIVIL) TABLET PO SCH (08:11)
[2022-04-24] MEDS: AMOXICILLIN 500 MG (POLYMOX) CAP PO SCH ×3 (08:11→20:41)
[2022-04-24] MEDS: OFLOXACIN 0.3% OPHTH SOLN 5 ML OP SCH ×4 (08:12→20:41)
[2022-04-24] MEDS: DICLOFENAC 1% GEL 100 GM (VOLTAREN) TUBE TOP SCH ×4 (08:12→20:41)
--- NOTE | 2022-04-24 09:22 | Occupational Ther Daily Note ---
OT Current Status-Daily Note Subjective Pt not motivated to participate in therapy. Needs encouragement. He c/o pain, but does not verbalize where or how much. Appearance Pt returned to sitting in recliner, all needs within reach at OT departure. Chair alarm set. Mental Status/Objective Patient Orientation: Person, Confused ADL-Treatment Therapy Code Descriptions/Definitions Functional [place] Measure: 0=Not Assessed/NA 4=Minimal Assistance 1=Total Assistance 5=Supervision or Setup 2=Maximal Assistance 6=Modified [place] 3=Moderate Assistance 7=Complete IndependenceSCALE: Activities may be completed with or without assistive devices. 9-Oleclrekhi-lqzdhfc completes the activity by him/herself with no assistance from a helper. 5-Set-up or Clean-up Assistance-helper sets up or cleans up; patient completes activity. [place] assists only prior to or following the activity. 4-Supervision or Touching Assistance-helper provides verbal cues and/or touching/steadying and/or contact guard assistance as patient completes activity. Assistance may be provided throughout the activity or intermittently. 3-Partial/Moderate Assistance-helper does LESS THAN HALF the effort. [place] lift s, holds or supports trunk or limbs, but provides less than half the effort. 2-Substantial/Maximal Assistance-helper does MORE THAN HALF the effort. [place] lifts or holds trunk or limbs and provides more than half the effort. 4-Nfltaegth-hjtjtw does ALL the effort. Patient does none of the effort to complete the activity. Or, the assistance of 2 or more helpers is required for the patient to complete the activity. If activity was not attempted, code reason: 7-Patient Refused. 9-Not Applicable-not attempted and the patient did not perform the activity before the current illness, exacerbation or injury. 10-Not Attempted due to Environmental Limitations-(lack of equipment, weather restraints, etc.). 88-Not Attempted due to Medical Conditions or Safety Concerns. Eating (QC): 4 Oral Hygiene (QC): 4 (Per clinical judgment) Shower/Bathe Self (QC): 3 Upper Body Dressing (QC): 4 Lower Body Dressing (QC): 2 On/Off Footwear: 1 Toileting Hygiene (QC): 2 Toilet Transfer (QC): 3 Pt with little interest in participating in therapy. He reports need to use toilet. Due to low BP with prolonged standing, pt transferred to commode vs walking into the bathroom. Zero initiation to complete back anuradha care despite cues given. Pt was able to wash front anuradha area post several verbal cues to initiate. Unsure if due to poor hearing or slow processing. Pt fatigues very quickly, unable to tolerate full shower at this time. Partial sponge bath completed seated in recliner. Pt washed upper body only, again cues needed to initiate and terminate each step. Anticipate assistance needed to wash below knees. Zero effort given to don pants. He frequently verbalizes inability to complete secondary to fatigue. Dependent to thread BLE's into brief/pants. CGA for safety as he stood for clothing management. Pt becomes retropulsive when removing 1 hand from walker, needing assistance and cues to shift weight forward. Mod a to pull clothing up over hips, again secondary to fatigue and poor standing tolerance. Pt often only using RUE throughout adls, needs cues to incorporate L hand into activities. Impaired L hand/digit/wrist AROM and strength notable. Education OT Patient Education: Correct positioning, Energy conservation, Modified ADL techniques, Progress toward Goal/Update tx plan, Purpose of tx/functional activities, Reviewed precautions, Rehab process, Safety issues, Transfer techniques Teaching Recipient: Patient Teaching Methods: Demonstration, Discussion Response to Teaching: Unable to Return Demonstration, Reinforcement Needed OT Short Term Goals Short Term Goals Time Frame: Apr 25, 2022 Eatin Oral hygiene: 4 Toileting hygiene: 3 Shower/bathe self: 3 Upper body dressin Lower body dressin Putting on/taking off footwear: 4 OT Group Home Goals Group Home Goals Time Frame: May 04, 2022 Eating (QC): 5 Oral Hygiene (QC): 5 Toileting Hygiene (QC): 6 Shower/Bathe Self (QC): 5 Upper Body Dressing (QC): 6 Lower Body Dressing (QC): 6 On/Off Footwear (QC): 5 Additional Goals: 1-Demonstrate ADL Tasks, 2-Verbalize Understanding, 3- ImproveStrength/Jenifer 1=Demonstrate adherence to instructed precautions during ADL tasks. 2=Patient will verbalize/demonstrate understanding of assistive devices/modifications for ADL. 3=Patient will improve strength/tolerance for activity to enable patient to perform ADL's. OT Education/Plan Problem List/Assessment Assessment: Decreased Activ Tolerance, Decreased Safety Aware, Decreased UE Strength, Impaired Cognition, Impaired Coordination, Impaired Funct Balance, Impaired Self-Care Skills, Restricted Funct UE ROM Discharge Recommendations Plan/Recommendations: Continue POC Therapy Discharge Recommendati: Intermittent Supervision, Assisted Living, Bath Aide, Homemaker Support, Post Acute OT Treatment Plan/Plan of Care Treatment,Training & Education: Yes Patient would benefit from OT for education, treatment and training to promote independence in ADL's, mobility, safety and/or upper extremity function for ADL's. Plan of Care: ADL Retraining, Caregiver Training, Cognitive Retraining, Concurrent Therapy, Functional Mobility, Group Exercise/Act as Ind, UE Funct Exercise/Act, UE Neuromus Re-Ed/Coord, Visual/Perceptual Retrain, W/C Management Training Treatment Duration: May 04, 2022 Frequency: At least 5 of 7 days/Wk (IRF) Estimated Hrs Per Day: 1.5 hours per day (75-90 minutes) Agreement: Yes Rehab Potential: Guarded Time/GCodes Start Time: 08:30 Stop Time: 09:20 Total Time Billed (hr/min): 50 Billed Treatment Time 1 visit ADL x3 Lissett Worley OT Apr 24, 2022 09:22
--- NOTE | 2022-04-24 09:37 | Progress Note - Cardiology ---
Cardiology SOAP Progress Note Subjective: Sitting up in recliner at the bedside States he feels tired Continues to have episodes of dizziness and orthostatic hypotension Objective: I&O/Vital Signs 04/24/22 08:10 Pulse 70 B/P (MAP) 120/76 (91) Weight (Pounds): 183 Weight (Ounces): 0.0 Weight (Calculated Kilograms): 83.389743 Constitutional: AAO x 3, other (thin, frail) Respiratory: No accessory muscle use, No respiratory distress; chest expansion is symmetric, chest is bilaterally symmetric, lungs clear to auscultation Cardiovascular: regular rate-rhythm (paced rhytm); No JVD; S1 and S2, systolic murmur Gastrointestional: No tender; soft, round, audible bowel sounds Extremities: no lower extremity edema bilateral Neurologic/Psychiatric: other (left sided upper and lower extremity weakness) Skin: No rash on exposed areas, No ulcerations on exposed areas Results/Procedures: Labs Laboratory Tests 04/24/22 05:17: Prothrombin Time 27.0H, INR Comment 2.4H Microbiology 04/21/22 Urine Culture - Final, Complete Enterococcus faecalis A/P: Assessment: Orthostatic hypotension - symptomatic - reduce Lisinopril 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 Mcclelland at [facility] states this is 3rd CVA since May of 2021 - CTA of the head and neck showed mod stenosis of both prox internal carotid arteries UTI - management per medical services Chronic a-fib - OAC with warfarin - management per medical services Pacer/AICD - pt does not know any details - per Dr. Guido's notes of 04-09-22 : pulse gen change out on 08-27-[address] Morgan Coronary artery disease - H/O a 3.5x24 mm Promus elements stent to the right coronary artery on June 04, 2013 followed by 2.75x28 mm Promus stent to the circumflex artery done in [facility] on June 05, [address] Ureña's office note of 2013 HTN Chronic systolic/diastolic CHF - Echocardigogram of 04-09-22 at [facility]: LVEF 40-45%. RA mildly dilated. Mod AoV regurg. Severe MR. Severe TR. Severe pulmonary HTN - low dose BERNADETTE (-) - d/t symptomatic orthostatic hypotension he is unable to tolerate any higher dose HLD - statin tx H/O tobaccoism - quit smoking in 1979 Plan: * Complex management issue * UTI - management per medical services * Continues to have orthostatic hypotension despite reduction of medications as well as thigh-high compression socks - further reduce BERNADETTE (-) dose * Monitor labs, including INR (therapeutic INR for several days) * Tele x 24 hours RL MCINTOSH Apr 24, 2022 09:37
--- NOTE | 2022-04-24 10:47 | Therapy Team Discharge Summary ---
Therapy Discharge Summary Discharge Recommendations Date of Discharge Physical Therapy Roll Left to Right (QC): 6 Sit to Lying (QC): 6 Lying to Sitting/Side of Bed(Q: 6 Sit to Stand (QC): 3 Chair/Lyt-gw-Htngs Xfer(QC): 3 Toilet Transfer (QC): 3 Car Transfer (QC): 3 Does the Patient Walk: Yes Mode of Locomotion: Walk Anticipated Mode of Locomotion: Walk Walk 10 feet (QC): 4 Walk 50 ft with 2 Turns(QC): 3 Walk 150 ft (QC): 88 Walking 10ft on uneven surface: 4 Distance: 120 Gait Assistive Device: FWW Does the Pt Use a Wheelchair: Yes Wheelchair Distance: 80 Wheel 50 ft with 2 turns (QC): 5 Wheel 150 ft (QC): 4 Type of Wheelchair: Manual #of Steps: 12 1 Step (curb) (QC): 4 4 Steps (QC): 3 12 Steps (QC): 2 Balance Sitting Static: Fair Balance Sitting Dynamic: Fair Balance-Standing Static: Fair Picking up an Object (QC): 4 Occupational Therapy Decreased Activ Tolerance, Decreased Safety Aware, Decreased UE Strength, Impaired Cognition, Impaired Coordination, Impaired Funct Balance, Impaired Self-Care Skills, Restricted Funct UE ROM Eating (QC): 4 Oral Hygiene (QC): 4 (Per clinical judgment) Shower/Bathe Self (QC): 3 Upper Body Dressing (QC): 4 Lower Body Dressing (QC): 2 On/Off Footwear (QC): 1 Toileting Hygiene (QC): 2 Speech-Language Pathology Expression of Ideas/Wants: Exhibits (3) Understanding Verbal Content: Usually Understands (3) Brief Interview-Mental Status: Yes Repetition of Three Words: Three (3) Temporal Orientation: Year: Correct (3) Temporal Orientation: Month: Accurate within 5 days(2) Temporal Orientation: Day: Correct (1) Recall : Wear to say "Sock": No, with cue (0) Recall : Color: Yes, no cue required (2) Recall : Bed: Yes,after cueing (1) Memory/Recall Ability: Current season, Location of own room, Staff names and faces, That he or she is in a hsp/hsp unit PT [facility] Goals Rn Advice Goals PT Rn Advice Goals Time Frame: May 12, 2022 Roll Left to Right (QC): 6 Sit to Lying (QC): 6 Lying-Sitting on Side/Bed(QC): 6 Sit to Stand (QC): 6 Chair/Bwn-fz-Kpwji Xfer(QC): 6 Car Transfer (QC): 6 Does the Patient Walk: Yes Walk 10 feet (QC): 6 Walk 10ft-Uneven Surface(QC): 6 Walk 50ft with 2 Turns (QC): 6 Walk 150 ft (QC): 4 Does the Pt use WC or Scooter?: No Wheel 50 feet with 2 turns (QC: 88 1 Step (curb) (QC): 6 4 Steps (QC): 4 12 Steps (QC): 4 Picking up an Object (QC): 6 OT [facility] Goals [facility] Goals Time Frame: May 04, 2022 Eating (QC): Oral Hygiene (QC): 5 Shower/Bathe Self (QC): 5 Upper Body Dressing (QC): 6 Lower Body Dressing (QC): 6 On/Off Footwear (QC): 5 Toileting Hygiene (QC): 6 Toilet/Commode Transfer (QC): 6 Additional Goals: 1-Demonstrate ADL Tasks, 2-Verbalize Understanding, 3- ImproveStrength/Jenifer 1=Demonstrate adherence to instructed precautions during ADL tasks. 2=Patient will verbalize/demonstrate understanding of assistive devices/modif ications for ADL. 3=Patient will improve strength/tolerance for activity to enable patient to perform ADL's. Speech Rn Advice Goals [facility] Goals 1. The patient will tolerate the least restrictive diet consistency without overt s/s of suspected aspiration. MET 2. The patient will demonstrate improved cognitive linguistic skills for safe discharge to the least restrictive environment. MET Expression of Ideas/Wants: Exhibits (3) Understanding Verbal Content: Usually Understands (3) Brief Interview-Mental Status: Yes Repetition of Three Words: Three (3) Temporal Orientation: Year: Correct (3) Temporal Orientation: Month: Accurate within 5 days(2) Temporal Orientation: Day: Correct (1) Recall : Wear to say "Sock": No, with cue (0) Recall : Color: Yes, no cue required (2) Recall : Bed: Yes,after cueing (1) Memory/Recall Ability: Current season, Location of own room, Staff names and faces, That he or she is in a hsp/hsp unit Time Frame: Ten Days. MARCIE JACOB Apr 24, 2022 10:47
--- NOTE | 2022-04-24 11:11 | Physical Therapy Daily Note ---
PT Daily Note-Current Subjective Pt laying Supine in bed upon arrival. Nurse advised still having difficulty with Orthostatic so watch when transferring or walking. Pt agrees to PT for QC scoring for anticipated d/c to home w/GF who is a Nurse. Pain Location: No Pain Reported Mental Status Patient Orientation: Person, Place Attachments: Other-See Comments (Telemetry) Transfers SCALE: Activities may be completed with or without assistive devices. 5-Plbqjbfpia-jkyrsya completes the activity by him/herself with no assistance from a helper. 5-Set-up or Clean-up Assistance-helper sets up or cleans up; patient completes activity. [place] assists only prior to or following the activity. 4-Supervision or Touching Assistance-helper provides verbal cues and/or touching/steadying and/or contact guard assistance as patient completes activity. Assistance may be provided throughout the activity or intermittently. 3-Partial/Moderate Assistance-helper does LESS THAN HALF the effort. [place] lifts, holds or supports trunk or limbs, but provides less than half the effort. 2-Substantial/Maximal Assistance-helper does MORE THAN HALF the effort. [place] lifts or holds trunk or limbs and provides more than half the effort. 5-Zlerhzpxn-vocpwt does ALL the effort. Patient does none of the effort to complete the activity. Or, the assistance of 2 or more helpers is required for the patient to complete the activity. If activity was not attempted, code reason: 7-Patient Refused. 9-Not Applicable-not attempted and the patient did not perform the activity before the current illness, exacerbation or injury. 10-Not Attempted due to Environmental Limitations-(lack of equipment, weather restraints, etc.). 88-Not Attempted due to Medical Conditions or Safety Concerns. Roll Left & Right (QC): 5 Sit to Lying (QC): 5 Lying to Sitting/Side of Bed(Q: 5 Sit to Stand (QC): 3 Chair/Qii-qa-Dzrpu Xfer(QC): 3 Toilet Transfer (QC): 3 Car Transfer (QC): 3 Pt gets dizzy w/o standing, this has been ongoing w/[facility]U stay. Weight Bearing Right Lower Extremity: Right Full Weight Bearing Left Lower Extremity: Left Full Weight Bearing Gait Training Does the Patient Walk?: Yes Distance: 15' Walk 10 feet (QC): 2 Walk 50 ft with 2 Turns(QC): 88 Walk 150 ft (QC): 88 Walking 10ft/uneven surface-QC: 88 Gait Persons Needed: 1 Gait Assistive Device: FWW Follow w/[facility] for safety. Pt is too unsteady to complete distance ambulation. Wheelchair Training Does the Pt Use a Wheelchair?: Yes Wheel 50 ft with 2 turns (QC): 5 Wheel 150 ft (QC): 5 Type of Wheelchair: Manual Stair Training 1 Step (curb) (QC): 88 4 Steps (QC): 88 12 Steps (QC): 88 See gait section. Balance Picking up an Object (QC): 3 Exercises NuStep Minutes: 5 NuStep Workload: 4 Treatments Pt completes QC scoring that pt can safely complete. Pt has orthostatic BP issues w/standing. Upright activity is unsafe for very long or for very far at this time. Pt uses NuStep after SPT from [facility]. [facility] mobility completed and pt returns to room to rest in bed. All needs met, call light in hand. Assessment Current Status: Fair Progress Orthostatic BP affects completion of many QC scoring items for testing today. PT Biophysics Professor Goals Biophysics Professor Goals PT Biophysics Professor Goals Time Frame: May 12, 2022 Roll Left & Right (QC): 6 Sit to Lying (QC): 6 Lying-Sitting on Side/Bed(QC): 6 Sit to Stand (QC): 6 Chair/Thx-mv-Moaad Xfer(QC): 6 Toilet Transfer (QC): 6 Car Transfer (QC): 6 Does the Patient Walk: Yes Walk 10 feet (QC): 6 Walk 50ft with 2 Turns (QC): 6 Walk 150 ft (QC): 4 Walking 10ft on Uneven Surface: 6 1 Step (curb) (QC): 6 4 Steps (QC): 4 12 Steps (QC): 4 Picking up an Object (QC): 6 Does the Pt use WC or Scooter?: No Wheel 50 feet with 2 turns (QC: 88 Wheel 150 feet: 88 PT Plan Problem List Problem List: Activity Tolerance, Functional Strength, Safety, Balance Treatment/Plan Treatment Plan: Continue Plan of Care Treatment Plan: Bed Mobility, Education, Functional Activity Jenifer, Functional Strength, Group Therapy, Gait, Safety, Therapeutic Exercise, Transfers Treatment Duration: May 12, 2022 Frequency: At least 5 of 7 days/Wk (IRF) Estimated Hrs Per Day: 1.5 hours per day Patient and/or Family Agrees t: Yes Safety Risks/Education Patient Education: Correct Positioning, Safety Issues Teaching Recipient: Patient Teaching Methods: Discussion Response to Teaching: Verbalize Understanding Time/GCodes Time In: 1000 Time Out: 1100 Total Billed Treatment Time: 60 Total Billed Treatment 1, FA x4 (60m) JANELLE MICHELLE GREY STOCK RECORDER Apr 24, 2022 11:11
--- NOTE | 2022-04-24 14:51 | Therapy Group Daily Note ---
Therapy Daily Group Note Patient Education Topic Other List Below (Modifications for Home Environment) Session Ratio (pt:therapist): 4:1 Goal of Session: Energy Conservation Tech., Home Safety Strategies, Safety with Transfers, Use of Adaptive Equipment Goal Met for this Session: Yes Pt Benefit of Group: Contributions to Others, F/U Use of Strategies @Home, Increased Functional Safety, Increased Functional Strength, Improved Cognition, Recognition of Peers, Socialization Other/Notes Pt transported via w/c to therapy gym for OT/PT group. Group consisted of introductions (name, place living, remembered historic event), socializations, educational topic of ergonomic/modifications for functional mobility and ADL tasks. Pt introduced self appropriately and actively listened to peers. Pt then was able to verbalize own strategies for modifications around the home while acknowledging understanding of educational topic. After session, pt toilets then sits in recliner to eat with call light/phone in reach. All needs met in room. Start Time: 13:00 Stop Time: 14:25 Total Billed Treatment Time: 85 Total Billed Treatment 1, GRP (85m) JANELLE MICHELLE PTA Apr 24, 2022 14:51
[2022-04-24] MEDS ORDERED: ATOR40TA70 PO (16:02)
[2022-04-24] MEDS: warFARin 5 MG (COUMADIN) TAB PO SCH (17:12)
[2022-04-24 19:56] VITALS: BP 138/75
[2022-04-24] MEDS: MELATONIN 3 MG TABLET PO PRN (20:41)
[2022-04-24] MEDS: ALPRAZolam 0.25 MG (XANAX) TAB PO PRN (20:41)
[2022-04-24] MEDS: ASPIRIN 81 MG CHEW (CHILDREN'S ASA) PO SCH (20:41)
[2022-04-25 06:18] LABS: INR 2.5 (0.8-1.4); PROTHROMBIN TIME PATIENT 27.7 SEC (12.2-14.7)
--- NOTE | 2022-04-25 06:29 | PM&R Progress Note ---
Subjective HPI/CC On Admission Date Seen by Provider: Apr 25, 2022 Time Seen by Provider: 08:30 Subjective/Events-last exam 04/25/2022: 04/24/2022: No major issues Left hand strength definitely still weak Enterococcus UTI treatment tolerated 04/23/2022: No major issues Left hand hand shoes sewer is near normal Left facial droop improved also 04/22/2022: Having a better day Orthostasis episodes are still occurring No falls but increased risk DNR 04/21/2022: Had a major event this morning with left arm weakness, left facial droop, and obvious neurological deficit CT scan without showed no bleed INR was 2.3 Carotid US showed bilateral 50% or less Spoke with cardiology Spoke with stroke neurology, they agree nothing more to do unless he continues to have strokes MRI could be done but he has a pacemaker Speech has made no changes with dysphagia 2 diet Abnl UA noted 04/20/2022: No major issues RN has no concerns Increased ambulatory function 04/19/2022: Pt is doing pretty well Had some insomnia last night BP is labile Orthostatic hypotension limits the medication Updated Dr. Garcai, who is managing the INR 04/18/2022: No major events last night No pain Moving around well 04/17/2022: No major issues No pain reported Checked meds and labs 04/16/2022: Patient seems to be doing well Poor memory recall No pain reported 04/15/2022: Doing well Had orthostasis yesterday and Dr Garcia adjusted meds Patient denies pain No falls 04/14/2022: Pt is doing pretty well He is a bit confused Bed alarm on for fall risk Checked meds and labs No falls Review of Systems General: Fatigue, Malaise Objective Exam Vital Signs Vital Signs Date Time Temp Pulse Resp B/P (MAP) Pulse Ox O2 Delivery O2 Flow Rate FiO2 04/25/22 07:23 36.0 63 16 112/61 (78) 97 Room Air Capillary Refill : General Appearance: No Apparent Distress, WD/WN, Chronically ill, Thin HEENT: PERRL/EOMI, Normal ENT Inspection, Pharynx Normal, Moist Mucous Membranes Neck: Non Tender, Supple Respiratory: Chest Non Tender, Lungs Clear, Normal Breath Sounds, No Accessory Muscle Use, No Respiratory Distress Cardiovascular: Regular Rate, Rhythm, No Edema, No Gallop, No JVD Gastrointestinal: Normal Bowel Sounds, No Organomegaly, No Pulsatile Mass, Non Tender, Soft Rectal: Deferred Extremity: No Pedal Edema, Calf Tenderness Neurologic/Psychiatric: Alert, Normal Mood/Affect, Disoriented, Facial Droop, Motor Weakness Skin: Normal Color, Warm/Dry Lymphatic: No Adenopathy Results/Procedures Lab Patient resulted labs reviewed. FIM Transfers Therapy Code Descriptions/Definitions Functional [place] Measure: 0=Not Assessed/NA 4=Minimal Assistance 1=Total Assistance 5=Supervision or Setup 2=Maximal Assistance 6=Modified [place] 3=Moderate Assistance 7=Complete IndependenceSCALE: Activities may be completed with or without assistive devices. 9-Grzlesnsuq-lhfjdub completes the activity by him/herself with no assistance from a helper. 5-Set-up or Clean-up Assistance-helper sets up or cleans up; patient completes activity. [place] assists only prior to or following the activity. 4-Supervision or Touching Assistance-helper provides verbal cues and/or touching/steadying and/or contact guard assistance as patient completes activity. Assistance may be provided throughout the activity or intermittently. 3-Partial/Moderate Assistance-helper does LESS THAN HALF the effort. [place] lifts, holds or supports trunk or limbs, but provides less than half the effort. 2-Substantial/Maximal Assistance-helper does MORE THAN HALF the effort. [place] lifts or holds trunk or limbs and provides more than half the effort. 9-Rkxwnwflh-nqxocb does ALL the effort. Patient does none of the effort to complete the activity. Or, the assistance of 2 or more helpers is required for the patient to complete the activity. If activity was not attempted, code reason: 7-Patient Refused. 9-Not Applicable-not attempted and the patient did not perform the activity before the current illness, exacerbation or injury. 10-Not Attempted due to Environmental Limitations-(lack of equipment, weather restraints, etc.). 88-Not Attempted due to Medical Conditions or Safety Concerns. Roll Left to Right (QC): 5 Sit to Lying (QC): 5 Sit to Stand (QC): 3 Chair/Wjp-wx-Rotsy Xfer(QC): 3 Car Transfer (QC): 3 Gait Training Does the Patient Walk?: Yes Distance: 15' Walk 10 feet (QC): 2 Walk 50 ft with 2 Turns(QC): 88 Walk 150 ft (QC): 88 Walking 10ft/uneven surface-QC: 88 Gait Persons Needed: 1 Gait Assistive Device: FWW Wheelchair Training Does the Pt Use a Wheelchair?: Yes Distance: 80 Wheel 50 ft with 2 turns (QC): 5 Wheel 150 ft (QC): 5 Type of Wheelchair: Manual Stair Training #of Steps: 12 1 Step (curb) (QC): 88 4 Steps (QC): 88 12 Steps (QC): 88 Balance Picking up an Object (QC): 3 ADL-Treatment Eating (QC): 4 Oral Hygiene (QC): 4 (Per clinical judgment) Shower/Bathe Self (QC): 3 Upper Body Dressing (QC): 4 Lower Body Dressing (QC): 2 On/Off Footwear (QC): 1 Toileting Hygiene (QC): 2 Toilet Transfer (QC): 3 Assessment/Plan Assessment and Plan Assess & Plan/Chief Complaint Assessment: 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 but had another episode 04/21/22 with left arm weakness and left facial droop w/u completed along with neuro consult [facility] 2 prior strokes Atrial fibrillation on Coumadin therapy Hypertension Pacemaker Hyperlipidemia Orthostasis causing increased risk for falls UTI 04/21/22 Enterococcus Plan: Supportive care Check INR in the morning Restart all home meds Aggressive PT OT ST 04/14/2022: Monitor confusion Bed alarm since fall risk 04/15/2022: Monitor BP Appreciate Dr Garcia 04/16/2022: Supportive care 04/17/2022: Continue treatment 04/18/2022: INR management per Dr Garcia 04/19/2022: Monitor for hematuria 04/20/2022: Monitor INR 04/21/2022: Monitor for additional deficits DNR Updated DPOA Omnicef empirically for abnl UA 04/22/2022: Add Amoxil Cefdinir 04/23/2022: Improved cva symptoms DC Cefdinir 04/24/2022: Monitor INR 04/25/2022: (1) CVA (cerebral vascular accident) EDDIE YEE DO Apr 25, 2022 06:29
[2022-04-25 07:23] VITALS: BP 112/61
[2022-04-25] MEDS: AMOXICILLIN 500 MG (POLYMOX) CAP PO SCH ×2 (08:33→13:28)
[2022-04-25] MEDS: DIGOXIN 0.125 MG (LANOXIN) TAB PO SCH (08:33)
[2022-04-25] MEDS: OFLOXACIN 0.3% OPHTH SOLN 5 ML OP SCH (08:34)
[2022-04-25] MEDS: DICLOFENAC 1% GEL 100 GM (VOLTAREN) TUBE TOP SCH (08:34)
[2022-04-25] MEDS ORDERED: WRF5T PO (08:43)
[2022-04-25] MEDS ORDERED: AMOX500C2 PO (08:43)
[2022-04-25] MEDS ORDERED: ATOR80TA76 PO (08:43)
[2022-04-25] MEDS ORDERED: HYDR-3817 PO (08:43)
[2022-04-25] MEDS ORDERED: LISI5TAB20 PO (08:43)
--- NOTE | 2022-04-25 08:48 | D/C HH Face to Face Order ---
D/C Face to Face Orders Reconcile Patient Problems Problems Reviewed?: Yes Instructions for Patient [facility] Patient Instructions/FollowUp: PCP 1 week Physician to follow Patient: PCP Discharge Diet for Home: No Restrictions Patient Problems: CVA Patient Data-Allergies,Ht & Wt Patient Allergies: Coded Allergies: No Known Drug Allergies (Unverified , 06/03/13) Weight (Pounds): 183 Weight (Ounces): 0.0 Home Health Need/Face to Face Date of Face to Face: Apr 25, 2022 Clinical Findings: Generalized weakness and fatigue, Instability, Muscle weakness, Unsteady gait I have seen Pt [id number]: Yes Discharged To: Home Diagnosis/Conditions: CVA Patient is Homebound due to: CognItive deficits, Princess fall risk due to instabilty, Muscle weakness Homebound Status Due to the above stated illness, injury or surgical procedure (medical condition or diagnosis) and associated clinical findings, the patient is homebound because of his/her inability to leave home except with aid of a supportive device and/or person AND leaving the home requires a considerable and taxing effort or is medically contraindicated. Pt req the following assistanc: Walker Home Health Nursing Orders Home Health Services Order: Nursing Services, Dip Dyer-Evaluate & Treat, Physical Therapy-Evaluate & Treat Certify Stmt I certify that this patient is under my care and that I, a nurse practitioner or a physician; a first assistant working with me, had a face to face encounter that - meets the physician face to face encounter requirements with this patient as dated. EDDIE YEE DO Apr 25, 2022 08:48
--- NOTE | 2022-04-25 08:48 | Discharge Summary ---
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 but had another episode 04/21/22 with left arm weakness and left facial droop w/u completed along with neuro consult [facility] 2 prior strokes Atrial fibrillation on Coumadin therapy Hypertension Pacemaker Hyperlipidemia Orthostasis causing increased risk for falls UTI 04/21/22 Enterococcus Plan: Supportive care Check INR in the morning Restart all home meds Aggressive PT OT ST 04/14/2022: Monitor confusion Bed alarm since fall risk 04/15/2022: Monitor BP Appreciate Dr Garcia 04/16/2022: Supportive care 04/17/2022: Continue treatment 04/18/2022: INR management per Dr Garcia 04/19/2022: Monitor for hematuria 04/20/2022: Monitor INR 04/21/2022: Monitor for additional deficits DNR Updated DPOA Omnicef empirically for abnl UA 04/22/2022: Add Amoxil Cefdinir 04/23/2022: Improved cva symptoms DC Cefdinir 04/24/2022: Monitor INR (1) CVA (cerebral vascular accident) Discharge Summary Discharge Physical Examination Allergies: Coded Allergies: No Known Drug Allergies (Unverified , 06/03/13) Vitals & I&Os Vital Signs Date Time Temp Pulse Resp B/P (MAP) Pulse Ox O2 Delivery O2 Flow Rate FiO2 04/25/22 09:00 Room Air 04/25/22 07:23 36.0 63 16 112/61 (78) 97 General Appearance: Alert, Oriented X3, Cooperative Respiratory: Clear to Auscultation Cardiovascular: Regular Rate Neuro: Normal Gait, Normal Speech Hospital Course Was the Problem List Reviewed?: Yes Lengthy course after admitted from [facility] [place] following stroke. Patient has had 2 prior strokes in past few months. Cognition had suffered from CVA so spe ech therapy continued aggressive treatment during stay. Patient did participate with all disciplines. Patient did have an Enterococcus UTI which seemed to cause a reactivation of CVA affected deficits which required additional w/u with Neuro stroke expert. INR remained stable and Cardiology managed the orthostasis with modifications of his BP meds.Overall he had met goals and required 24/7 care at home and patient was DC in improved condition. Labs (last 24 hrs) Laboratory Tests 04/13/22 13:03: Lab Scanned Report Referred Lab Report 04/14/22 05:17: White Blood Count 6.6, Red Blood Count 4.25L, Hemoglobin 13.5, Hematocrit 40, Mean Corpuscular Volume 93, Mean Corpuscular Hemoglobin 32, Mean Corpuscular Hemoglobin Concent 34, Red Cell Distribution Width 12.2, Platelet Count 204, Mean Platelet Volume 10.6, Immature Granulocyte % (Auto) 1, Neutrophils (%) (Auto) 55, Lymphocytes (%) (Auto) 26, Monocytes (%) (Auto) 9, Eosinophils (%) (Auto) 9, Basophils (%) (Auto) 1, Neutrophils # (Auto) 3.6, Lymphocytes # (Auto) 1.7, Monocytes # (Auto) 0.6, Eosinophils # (Auto) 0.6H, Basophils # (Auto) 0.1, Immature Granulocyte # (Auto) 0.0, Prothrombin Time 20.9H, INR Comment 1.8H, Sodium Level 138, Potassium Level 3.9, Chloride Level 106, Carbon Dioxide Level 21, Anion Gap 11, Blood Urea Nitrogen 21H, Creatinine 0.98, Estimat Glomerular Filtration Rate 77, BUN/Creatinine Ratio 21, Glucose Level 82, Calcium Level 9.0, Corrected Calcium 9.5, Total Bilirubin 1.3H, Aspartate Amino Transf (AST/SGOT) 17, Alanine Aminotransferase (ALT/SGPT) 13, Alkaline Phosphatase 60, Total Protein 6.2L, Albumin 3.4 04/15/22 05:16: Sodium Level 138, Potassium Level 3.8, Chloride Level 106, Carbon Dioxide Level 20L, Anion Gap 12, Blood Urea Nitrogen 19H, Creatinine 1.06, Estimat Glomerular Filtration Rate 70, BUN/Creatinine Ratio 18, Glucose Level 85, Calcium Level 9.0, Digoxin Level 0.47L 04/16/22 04:35: White Blood Count 8.2, Red Blood Count 4.38, Hemoglobin 14.1, Hematocrit 41, Mean Corpuscular Volume 93, Mean Corpuscular Hemoglobin 32, Mean Corpuscular Hemoglobin Concent 35, Red Cell Distribution Width 12.2, Platelet Count 225, Mean Platelet Volume 10.2, Immature Granulocyte % (Auto) 1, Neutrophils (%) (Auto) 55, Lymphocytes (%) (Auto) 26, Monocytes (%) (Auto) 9, Eosinophils (%) (Auto) 8, Basophils (%) (Auto) 1, Neutrophils # (Auto) 4.5, Lymphocytes # (Auto) 2.1, Monocytes # (Auto) 0.8, Eosinophils # (Auto) 0.7H, Basophils # (Auto) 0.1, Immature Granulocyte # (Auto) 0.1, Prothrombin Time 20.5H, INR Comment 1.7H, Sodium Level 141, Potassium Level 4.0, Chloride Level 106, Carbon Dioxide Level 21, Anion Gap 14, Blood Urea Nitrogen 19H, Creatinine 1.23, Estimat Glomerular Filtration Rate 59, BUN/Creatinine Ratio 15, Glucose Level 91, Calcium Level 8.9, Corrected Calcium 9.4, Total Bilirubin 1.1H, Aspartate Amino Transf (AST/SGOT) 22, Alanine Aminotransferase (ALT/SGPT) 18, Alkaline Phosphatase 61, Total Protein 6.2L, Albumin 3.4, Magnesium Level 2.0 04/17/22 06:20: Prothrombin Time 21.2H, INR Comment 1.8H 04/18/22 05:40: Prothrombin Time 24.1H, INR Comment 2.1H 04/19/22 05:35: Prothrombin Time 25.5H, INR Comment 2.3H 04/20/22 05:10: Prothrombin Time 25.5H, INR Comment 2.3H 04/21/22 05:41: White Blood Count 8.1, Red Blood Count 4.60, Hemoglobin 14.9, Hematocrit 43, Mean Corpuscular Volume 94, Mean Corpuscular Hemoglobin 32, Mean Corpuscular Hemoglobin Concent 35, Red Cell Distribution Width 12.5, Platelet Count 213, Mean Platelet Volume 11.2, Immature Granulocyte % (Auto) 0, Neutrophils (%) (Auto) 56, Lymphocytes (%) (Auto) 26, Monocytes (%) (Auto) 9, Eosinophils (%) (Auto) 8, Basophils (%) (Auto) 1, Neutrophils # (Auto) 4.5, Lymphocytes # (Auto) 2.1, Monocytes # (Auto) 0.7, Eosinophils # (Auto) 0.7H, Basophils # (Auto) 0.1, Immature Granulocyte # (Auto) 0.0, Prothrombin Time 25.7H, INR Comment 2.3H, Sodium Level 138, Potassium Level 4.0, Chloride Level 104, Carbon Dioxide Level 25, Anion Gap 9, Blood Urea Nitrogen 16, Creatinine 1.27, Estimat Glomerular Filtration Rate 56, BUN/Creatinine Ratio 13, Glucose Level 86, Calcium Level 9.0, Corrected Calcium 9.4, Total Bilirubin 0.8, Aspartate Amino Transf (AST/SGOT) 31, Alanine Aminotransferase (ALT/SGPT) 28, Alkaline Phosphatase 70, Total Protein 6.3L, Albumin 3.5 04/21/22 12:15: Urine Color YELLOW, Urine Clarity CLEAR, Urine pH 6.0, Urine Specific [place] 1.020, Urine Protein NEGATIVE, Urine Glucose (UA) NEGATIVE, Urine Ketones NEGATIVE, Urine Nitrite NEGATIVE, Urine Bilirubin NEGATIVE, Urine Urobilinogen 1.0, Urine Leukocyte Esterase 1+H, Urine RBC (Auto) TRACE-IH, Urine RBC 0-2, Urine WBC 25-50H, Urine Crystals NONE, Urine Bacteria MODERATEH, Urine Casts NONE, Urine Mucus NEGATIVE, Urine Culture Indicated YES 04/22/22 05:20: Prothrombin Time 28.1H, INR Comment 2.6H 04/23/22 07:16: Prothrombin Time 28.8H, INR Comment 2.7H 04/24/22 05:17: Prothrombin Time 27.0H, INR Comment 2.4H, Digoxin Level 0.52L 04/25/22 05:51: Prothrombin Time 27.7H, INR Comment 2.5H Microbiology 04/21/22 Urine Culture - Final, Complete Enterococcus faecalis Pending Labs Microbiology Date/Time Source Procedure Growth Status 04/21/22 12:15 Urine Clean Catch Urine Culture - Final Enterococcus faecalis Complete Laboratory Tests 04/13/22 13:03: Lab Scanned Report Referred Lab Report 04/14/22 05:17: White Blood Count 6.6, Red Blood Count 4.25, Hemoglobin 13.5, Hematocrit 40, Mean Corpuscular Volume 93, Mean Corpuscular Hemoglobin 32, Mean Corpuscular Hemoglobin Concent 34, Red Cell Distribution Width 12.2, Platelet Count 204, Mean Platelet Volume 10.6, Immature Granulocyte % (Auto) 1, Neutrophils (%) (Auto) 55, Lymphocytes (%) (Auto) 26, Monocytes (%) (Auto) 9, Eosinophils (%) (Auto) 9, Basophils (%) (Auto) 1, Neutrophils # (Auto) 3.6, Lymphocytes # (Auto) 1.7, Monocytes # (Auto) 0.6, Eosinophils # (Auto) 0.6, Basophils # (Auto) 0.1, Immature Granulocyte # (Auto) 0.0, Prothrombin Time 20.9, INR Comment 1.8, Sodium Level 138, Potassium Level 3.9, Chloride Level 106, Carbon Dioxide Level 21, Anion Gap 11, Blood Urea Nitrogen 21, Creatinine 0.98, Estimat Glomerular Filtration Rate 77, BUN/Creatinine Ratio 21, Glucose Level 82, Calcium Level 9.0, Corrected Calcium 9.5, Total Bilirubin 1.3, Aspartate Amino Transf (AST/SGOT) 17, Alanine Aminotransferase (ALT/SGPT) 13, Alkaline Phosphatase 60, Total Protein 6.2, Albumin 3.4 04/15/22 05:16: Sodium Level 138, Potassium Level 3.8, Chloride Level 106, Carbon Dioxide Level 20, Anion Gap 12, Blood Urea Nitrogen 19, Creatinine 1.06, Estimat Glomerular Filtration Rate 70, BUN/Creatinine Ratio 18, Glucose Level 85, Calcium Level 9.0, Digoxin Level 0.47 04/16/22 04:35: White Blood Count 8.2, Red Blood Count 4.38, Hemoglobin 14.1, Hematocrit 41, Mean Corpuscular Volume 93, Mean Corpuscular Hemoglobin 32, Mean Corpuscular Hemoglobin Concent 35, Red Cell Distribution Width 12.2, Platelet Count 225, Mean Platelet Volume 10.2, Immature Granulocyte % (Auto) 1, Neutrophils (%) (Auto) 55, Lymphocytes (%) (Auto) 26, Monocytes (%) (Auto) 9, Eosinophils (%) (Auto) 8, Basophils (%) (Auto) 1, Neutrophils # (Auto) 4.5, Lymphocytes # (Auto) 2.1, Monocytes # (Auto) 0.8, Eosinophils # (Auto) 0.7, Basophils # (Auto) 0.1, Immature Granulocyte # (Auto) 0.1, Prothrombin Time 20.5, INR Comment 1.7, Sodium Level 141, Potassium Level 4.0, Chloride Level 106, Carbon Dioxide Level 21, Anion Gap 14, Blood Urea Nitrogen 19, Creatinine 1.23, Estimat Glomerular Filtration Rate 59, BUN/Creatinine Ratio 15, Glucose Level 91, Calcium Level 8.9, Corrected Calcium 9.4, Total Bilirubin 1.1, Aspartate Amino Transf (AST/SGOT) 22, Alanine Aminotransferase (ALT/SGPT) 18, Alkaline Phosphatase 61, Total Protein 6.2, Albumin 3.4, Magnesium Level 2.0 04/17/22 06:20: Prothrombin Time 21.2, INR Comment 1.8 04/18/22 05:40: Prothrombin Time 24.1, INR Comment 2.1 04/19/22 05:35: Prothrombin Time 25.5, INR Comment 2.3 04/20/22 05:10: Prothrombin Time 25.5, INR Comment 2.3 04/21/22 05:41: White Blood Count 8.1, Red Blood Count 4.60, Hemoglobin 14.9, Hematocrit 43, Mean Corpuscular Volume 94, Mean Corpuscular Hemoglobin 32, Mean Corpuscular Hemoglobin Concent 35, Red Cell Distribution Width 12.5, Platelet Count 213, Mean Platelet Volume 11.2, Immature Granulocyte % (Auto) 0, Neutrophils (%) (Auto) 56, Lymphocytes (%) (Auto) 26, Monocytes (%) (Auto) 9, Eosinophils (%) (Auto) 8, Basophils (%) (Auto) 1, Neutrophils # (Auto) 4.5, Lymphocytes # (Auto) 2.1, Monocytes # (Auto) 0.7, Eosinophils # (Auto) 0.7, Basophils # (Auto) 0.1, Immature Granulocyte # (Auto) 0.0, Prothrombin Time 25.7, INR Comment 2.3, Sodium Level 138, Potassium Level 4.0, Chloride Level 104, Carbon Dioxide Level 25, Anion Gap 9, Blood Urea Nitrogen 16, Creatinine 1.27, Estimat Glomerular Filtration Rate 56, BUN/Creatinine Ratio 13, Glucose Level 86, Calcium Level 9.0, Corrected Calcium 9.4, Total Bilirubin 0.8, Aspartate Amino Transf (AST/SGOT) 31, Alanine Aminotransferase (ALT/SGPT) 28, Alkaline Phosphatase 70, Total Protein 6.3, Albumin 3.5 04/21/22 12:15: Urine Color YELLOW, Urine Clarity CLEAR, Urine pH 6.0, Urine Specific [place] 1 .020, Urine Protein NEGATIVE, Urine Glucose (UA) NEGATIVE, Urine Ketones NEGATIVE, Urine Nitrite NEGATIVE, Urine Bilirubin NEGATIVE, Urine Urobilinogen 1.0, Urine Leukocyte Esterase 1+, Urine RBC (Auto) TRACE-I, Urine RBC 0-2, Urine WBC 25-50, Urine Crystals NONE, Urine Bacteria MODERATE, Urine Casts NONE, Urine Mucus NEGATIVE, Urine Culture Indicated YES 04/22/22 05:20: Prothrombin Time 28.1, INR Comment 2.6 04/23/22 07:16: Prothrombin Time 28.8, INR Comment 2.7 04/24/22 05:17: Prothrombin Time 27.0, INR Comment 2.4, Digoxin Level 0.52 04/25/22 05:51: Prothrombin Time 27.7, INR Comment 2.5 Discharge Home Medications: Active Scripts Active Lisinopril 5 Mg Tablet 2.5 Mg PO DAILY Atorvastatin Calcium 80 Mg Tablet 80 Mg PO HS Jantoven (Warfarin Sodium) 5 Mg Tablet 5 Mg PO DAILY@1800 Amoxicillin 500 Mg Capsule 500 Mg PO TID Hydrocodone-Acetamin 7.5-325 (Hydrocodone/Acetaminophen) 7.5 Mg-325 Mg Tablet 1 Each PO Q6H PRN MDD 2000 Metoprolol Tartrate 25 Mg Tablet 25 Mg PO BID 30 Days Digox (Digoxin) 125 Mcg (0.125 Mg) Tablet 125 Mcg PO DAILY 30 Days Celexa (Citalopram Hydrobromide) 20 Mg Tablet 20 Mg PO DAILY 30 Days Reported Atorvastatin Calcium 40 Mg Tablet 40 Mg PO HS Baby Aspirin Chewable Tablet (Aspirin) 81 Mg Chew 81 Mg PO HS Instructions to patient/family Please see electronic discharge instructions given to patient. Diagnosis/Problems Diagnosis/Problems (1) CVA (cerebral vascular accident) EDDIE YEE DO Apr 25, 2022 08:48
[2022-04-25] MEDS: DOCUSATE SODIUM 100 MG (COLACE) CAP PO SCH (09:00)
[2022-04-25] MEDS ORDERED: lisINopril 5 MG (PRINIVIL) TABLET PO SCH (09:00)
[2022-04-25] MEDS: polyethylene glycoL POWDER 17 GM (MIRALAX) PACK PO SCH (09:00)
[2022-04-25] MEDS: SENNA W/DOCUSATE (SENOKOT S) TABLET PO SCH (09:00)
--- NOTE | 2022-04-25 12:11 | Therapy Team Discharge Summary ---
Therapy Discharge Summary Discharge Recommendations Date of Discharge Therapy D/C Recommendations: Usp (TCU/NH) (Pt is not safe to return home at this time unless 24/ care/supervision is provided) Physical Therapy Roll Left to Right (QC): 5 Sit to Lying (QC): 5 Lying to Sitting/Side of Bed(Q: 5 Sit to Stand (QC): 3 Chair/Hyl-sc-Hslrz Xfer(QC): 3 Toilet Transfer (QC): 3 Car Transfer (QC): 3 Does the Patient Walk: Yes Mode of Locomotion: Walk Anticipated Mode of Locomotion: Walk Walk 10 feet (QC): 2 Walk 50 ft with 2 Turns(QC): 88 Walk 150 ft (QC): 88 Walking 10ft on uneven surface: 88 Distance: 120 Gait Assistive Device: FWW Does the Pt Use a Wheelchair: Yes Wheelchair Distance: 80 Wheel 50 ft with 2 turns (QC): 5 Wheel 150 ft (QC): 5 Type of Wheelchair: Manual #of Steps: 12 1 Step (curb) (QC): 88 4 Steps (QC): 88 12 Steps (QC): 88 Balance Sitting Static: Fair Balance Sitting Dynamic: Fair Balance-Standing Static: Fair Picking up an Object (QC): 3 Occupational Therapy Pt admitted to ARU with CVA. At time of evaluation he was mod a for footwear, toileting, transfers, upper body dressing, bathing, and lower body dressing, min a for oral care, and sba for eating. While on rehab, OT focused on endurance, energy conservation, Adaptive/compensatory strategies, balance, flexibility, sequencing, memory, and safety in order to improve performance and independence in adls and functional mobility. Pt did not make progress towards goals due to consistent issues with blood pressure, fatigue levels, and cognitive deficits. See below for current levels of assist. OT does not recommend home at this time unless 24/ supervision/care is provided. Pt will be discharging from this facility today and will be discharged from OT at this time. Decreased Activ Tolerance, Decreased Safety Aware, Decreased UE Strength, Impaired Cognition, Impaired Coordination, Impaired Funct Balance, Impaired Self-Care Skills, Restricted Funct UE ROM Eating (QC): 4 Oral Hygiene (QC): 4 (Per clinical judgment) Shower/Bathe Self (QC): 3 Upper Body Dressing (QC): 4 Lower Body Dressing (QC): 2 On/Off Footwear (QC): 1 Toileting Hygiene (QC): 2 PT Fpc Goals Bl[employer] Goals PT Fpc Goals Time Frame: May 12, 2022 Roll Left to Right (QC): 6 Sit to Lying (QC): 6 Lying-Sitting on Side/Bed(QC): 6 Sit to Stand (QC): 6 Chair/Ydf-tv-Skkzu Xfer(QC): 6 Car Transfer (QC): 6 Does the Patient Walk: Yes Walk 10 feet (QC): 6 Walk 10ft-Uneven Surface(QC): 6 Walk 50ft with 2 Turns (QC): 6 Walk 150 ft (QC): 4 Does the Pt use WC or Scooter?: No Wheel 50 feet with 2 turns (QC: 88 1 Step (curb) (QC): 6 4 Steps (QC): 4 12 Steps (QC): 4 Picking up an Object (QC): 6 OT [employer] Goals Fpc Goals Time Frame: May 04, 2022 Eating (QC): 5 (not met) Oral Hygiene (QC): 5 (not met) Shower/Bathe Self (QC): 5 (not met) Upper Body Dressing (QC): 6 (not met) Lower Body Dressing (QC): 6 (not met) On/Off Footwear (QC): 5 (not met) Toileting Hygiene (QC): 6 (not met) Toilet/Commode Transfer (QC): 6 (not met) Additional Goals: 1-Demonstrate ADL Tasks, 2-Verbalize Understanding, 3- ImproveStrength/Jenifer 1=Demonstrate adherence to instructed precautions during ADL tasks. 2=Patient will verbalize/demonstrate understanding of assistive devices/modifications for ADL. 3=Patient will improve strength/tolerance for activity to enable patient to perform ADL's. Speech Fpc Goals Fpc Goals 1. The patient will tolerate the least restrictive diet consistency without overt s/s of suspected aspiration. MET 2. The patient will demonstrate improved cognitive linguistic skills for safe discharge to the least restrictive environment. MET Expression of Ideas/Wants: Exhibits (3) Understanding Verbal Content: Usually Understands (3) Brief Interview-Mental Status: Yes Repetition of Three Words: Three (3) Temporal Orientation: Year: Correct (3) Temporal Orientation: Month: Accurate within 5 days(2) Temporal Orientation: Day: Correct (1) Recall : Wear to say "Sock": No, with cue (0) Recall : Color: Yes, no cue required (2) Recall : Bed: Yes,after cueing (1) Memory/Recall Ability: Current season, Location of own room, Staff names and faces, That he or she is in a hsp/hsp unit Time Frame: Ten Days. Lissett Worley OT Apr 25, 2022 12:11
--- NOTE | 2022-04-25 13:00 | Progress Note - Cardiology ---
Cardiology SOAP Progress Note Subjective: No cp or palp or syncope or shortness of breath at rest Objective: I&O/Vital Signs 04/25/22 04/25/22 04/25/22 04/25/22 01:23 07:07 07:23 09:00 Temp 36.0 Pulse 70 70 63 Resp 16 B/P (MAP) 112/61 (78) Pulse Ox 97 O2 Delivery Room Air Room Air Weight (Pounds): 183 Weight (Ounces): 0.0 Weight (Calculated Kilograms): 83.176300 Constitutional: AAO x 3, other (thin, frail) Respiratory: No accessory muscle use, No respiratory distress; chest expansion is symmetric, chest is bilaterally symmetric, lungs clear to auscultation Cardiovascular: regular rate-rhythm (paced rhytm); No JVD; S1 and S2, systolic murmur Gastrointestional: No tender; soft, round, audible bowel sounds Extremities: no lower extremity edema bilateral Neurologic/Psychiatric: other (left sided upper and lower extremity weakness) Skin: No rash on exposed areas, No ulcerations on exposed areas Results/Procedures: Labs Laboratory Tests 04/25/22 05:51: Prothrombin Time 27.7H, INR Comment 2.5H Microbiology 04/21/22 Urine Culture - Final, Complete Enterococcus faecalis A/P: Assessment: Orthostatic hypotension - meds affecting bp have been reduced 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 Mcclelland at [facility] states this is 3rd CVA since May of 2021 - CTA of the head and neck showed mod stenosis of both prox internal carotid arteries UTI - management per medical services Chronic a-fib - OAC with warfarin - management per medical services Pacer/AICD - pt does not know any details - per Dr. Guido's notes of 04-09-22 : pulse gen change out on 08-27-[address] Morgan Coronary artery disease - H/O a 3.5x24 mm Promus elements stent to the right coronary artery on June 04, 2013 followed by 2.75x28 mm Promus stent to the circumflex artery done in [facility] on June 05, [address] Ureña's office note of 2013 HTN Chronic systolic/diastolic CHF - Echocardigogram of 04-09-22 at [facility]: LVEF 40-45%. RA mildly dilated. Mod AoV regurg. Severe MR. Severe TR. Severe pulmonary HTN - low dose BERNADETTE (-) - d/t symptomatic orthostatic hypotension he is unable to tolerate any higher dose HLD - statin tx H/O tobaccoism - quit smoking in 1979 Plan: * Complex management issue * Cardiac status currently appears to be clinically stable * INR therapeutic * Advised f/u with his rn manager in [place], [place] after he returns home. He states we will do so ALFONSO JOHNSON MD FACP FAC CCDS Apr 25, 2022 13:00
--- NOTE | 2022-04-25 14:02 | Therapy Team Discharge Summary ---
Therapy Discharge Summary Discharge Recommendations Date of Discharge Therapy D/C Recommendations: Correction (TCU/NH) (Pt is not safe to return home at this time unless / care/supervision is provided) Physical Therapy Patient came to rehab following a CVA. Upon evaluation patient performed rolling and supine <-> sit with CGA/SBA, sit <-> stand and transfers with min/mod assist, car transfer min/mod assist, ambulates 120' with a rolling walker with CGA/SBA (including 50' with at least 2 turns of 90 degrees and 10' over an uneven surface), propelled a manual WC 80' with min/mod assist, went up and down 12 steps using 2 handrails with max assist, and picked up an object from the floor with CGA. Patient has been performing bed mobility and transfer training, balance and endurance training, functional strengthening, stair training, gait training, and education. Patient has made some progress is some areas but has declined in others, but has not met any of his intermediate goals. Now, patient performs rolling and supine <-> sit with setup, sit <-> stand and transfers with min/mod assist, car transfer min/mod assist, ambulates 15' with a rolling walker with max assist propels a manual WC 150' with setup, and picked up an object from the floor with min/mod assist. Patient is being discharged from this facility and will be discharged from PT at this time. Roll Left to Right (QC): 5 Sit to Lying (QC): 5 Lying to Sitting/Side of Bed(Q: 5 Sit to Stand (QC): 3 Chair/Lox-ae-Xzskm Xfer(QC): 3 Toilet Transfer (QC): 3 Car Transfer (QC): 3 Does the Patient Walk: Yes Mode of Locomotion: Walk Anticipated Mode of Locomotion: Walk Walk 10 feet (QC): 2 Walk 50 ft with 2 Turns(QC): 88 Walk 150 ft (QC): 88 Walking 10ft on uneven surface: 88 Distance: 120 Gait Assistive Device: FWW Does the Pt Use a Wheelchair: Yes Wheelchair Distance: 80 Wheel 50 ft with 2 turns (QC): 5 Wheel 150 ft (QC): 5 Type of Wheelchair: Manual #of Steps: 12 1 Step (curb) (QC): 88 4 Steps (QC): 88 12 Steps (QC): 88 Balance Sitting Static: Fair Balance Sitting Dynamic: Fair Balance-Standing Static: Fair Picking up an Object (QC): 3 Occupational Therapy Decreased Activ Tolerance, Decreased Safety Aware, Decreased UE Strength, Impaired Cognition, Impaired Coordination, Impaired Funct Balance, Impaired Self-Care Skills, Restricted Funct UE ROM Eating (QC): 4 Oral Hygiene (QC): 4 (Per clinical judgment) Shower/Bathe Self (QC): 3 Upper Body Dressing (QC): 4 Lower Body Dressing (QC): 2 On/Off Footwear (QC): 1 Toileting Hygiene (QC): 2 PT [facility] Goals Chief Engineer Goals PT [facility] Goals Time Frame: May 12, 2022 Roll Left to Right (QC): 6 Sit to Lying (QC): 6 Lying-Sitting on Side/Bed(QC): 6 Sit to Stand (QC): 6 Chair/Lyv-im-Gkhdq Xfer(QC): 6 Car Transfer (QC): 6 Does the Patient Walk: Yes Walk 10 feet (QC): 6 Walk 10ft-Uneven Surface(QC): 6 Walk 50ft with 2 Turns (QC): 6 Walk 150 ft (QC): 4 Does the Pt use WC or Scooter?: No Wheel 50 feet with 2 turns (QC: 88 1 Step (curb) (QC): 6 4 Steps (QC): 4 12 Steps (QC): 4 Picking up an Object (QC): 6 OT Chief Engineer Goals Chief Engineer Goals Time Frame: May 04, 2022 Eating (QC): 5 (not met) Oral Hygiene (QC): 5 (not met) Shower/Bathe Self (QC): 5 (not met) Upper Body Dressing (QC): 6 (not met) Lower Body Dressing (QC): 6 (not met) On/Off Footwear (QC): 5 (not met) Toileting Hygiene (QC): 6 (not met) Toilet/Commode Transfer (QC): 6 (not met) Additional Goals: 1-Demonstrate ADL Tasks, 2-Verbalize Understanding, 3- ImproveStrength/Jenifer 1=Demonstrate adherence to instructed precautions during ADL tasks. 2=Patient will verbalize/demonstrate understanding of assistive devices/modifications for ADL. 3=Patient will improve strength/tolerance for activity to enable patient to perform ADL's. Speech Chief Engineer Goals [facility] Goals 1. The patient will tolerate the least restrictive diet consistency without overt s/s of suspected aspiration. MET 2. The patient will demonstrate improved cognitive linguistic skills for safe discharge to the least restrictive environment. MET Expression of Ideas/Wants: Exhibits (3) Understanding Verbal Content: Usually Understands (3) Brief Interview-Mental Status: Yes Repetition of Three Words: Three (3) Temporal Orientation: Year: Correct (3) Temporal Orientation: Month: Accurate within 5 days(2) Temporal Orientation: Day: Correct (1) Recall : Wear to say "Sock": No, with cue (0) Recall : Color: Yes, no cue required (2) Recall : Bed: Yes,after cueing (1) Memory/Recall Ability: Current season, Location of own room, Staff names and faces, That he or she is in a hsp/hsp unit Time Frame: Ten Days. DIAMOND JAIN PT Apr 25, 2022 14:02
== END 2022-04-25 13:50 | disposition home health service (06) | DRG 56 ==
PROVIDERS: ADMIT Internal Medicine; ATTEND Internal Medicine
DX: I69.354 Hemiplegia and hemiparesis following cerebral infarction affecting left non-dominant side (principal); I63.9 Cerebral infarction, unspecified; I48.20 Chronic atrial fibrillation, unspecified; I50.42 Chronic combined systolic (congestive) and diastolic (congestive) heart failure; N39.0 Urinary tract infection, site not specified; I69.319 Unspecified symptoms and signs involving cognitive functions following cerebral infarction; R41.0 Disorientation, unspecified; Z66 Do not resuscitate; G83.24 Monoplegia of upper limb affecting left nondominant side; R29.810 Facial weakness; I11.0 Hypertensive heart disease with heart failure; I95.1 Orthostatic hypotension; K59.00 Constipation, unspecified; I25.10 Atherosclerotic heart disease of native coronary artery without angina pectoris; E78.5 Hyperlipidemia, unspecified; F32.A Depression, unspecified; G47.00 Insomnia, unspecified; H91.90 Unspecified hearing loss, unspecified ear; B95.2 Enterococcus as the cause of diseases classified elsewhere; I25.2 Old myocardial infarction; Z91.81 History of falling; Z86.73 Personal history of transient ischemic attack (TIA), and cerebral infarction without residual deficits; Z87.891 Personal history of nicotine dependence; Z95.810 Presence of automatic (implantable) cardiac defibrillator; Z95.5 Presence of coronary angioplasty implant and graft; Z79.01 Long term (current) use of anticoagulants; Z79.82 Long term (current) use of aspirin; R29.705 NIHSS score 5
CPT/HCPCS: 36415; 70450; 80048; 80053; 80162; 81000; 83735; 85025; 85610; 87077; 87088; 87186; 93005; 93880